=== PATIENT | female | born 1950 | race African-American/Black ===

== ENCOUNTER 2018-04-23 09:23 | Emergency (ER) | payer OTHER ==
[2018-04-23 10:43] LABS: ADD MAN DIFF? NO
[2018-04-23] MEDS: IPRATRPIUM/ALBUTEROL 0.5/2.5MG 3 ML NEBU. NEB (10:44)
[2018-04-23 10:54] LABS: ANION GAP 7 (6-14); BLOOD UREA NITROGEN 9 mg/dL (7-20); BUN/CREATININE RATIO 11 (6-20); CALCIUM 9.3 mg/dL (8.5-10.1); CARBON DIOXIDE 28 mmol/L (21-32); CHLORIDE 105 mmol/L (98-107); CREATININE 0.8 mg/dL (0.6-1.0); GFR 86.8; GLUCOSE 89 mg/dL (70-99); POTASSIUM 3.6 mmol/L (3.5-5.1); SODIUM 140 mmol/L (136-145)
[2018-04-23 11:00] LABS: ALBUMIN 3.7 g/dL (3.4-5.0); ALBUMIN/GLOBULIN RATIO 0.9 (1.0-1.7); ALK PHOS 54 U/L (46-116); ALT (SGPT) 18 U/L (14-59); AST (SGOT) 20 U/L (15-37); TOTAL BILIRUBIN 0.2 mg/dL (0.2-1.0); TOTAL PROTEIN 7.7 g/dL (6.4-8.2)
[2018-04-23 11:11] LABS: BASO % 0 % (0-3); EOS % 0 % (0-3); HEMATOCRIT 38.2 % (36.0-47.0); HEMOGLOBIN 12.8 g/dL (12.0-15.5); LYMPH # 1.2 x10^3/uL (1.0-4.8); LYMPH % 19 % (24-48); MEAN CORPUSCULAR HEMOGLOBIN 32 pg (25-35); MEAN CORPUSCULAR HGB CONC 34 g/dL (31-37); MEAN CORPUSCULAR VOLUME 96 fL (79-100); MONO # 0.4 x10^3/uL (0.0-1.1); MONO % 7 % (0-9); NEUT # 4.8 x10^3uL (1.8-7.7); NEUT % 74 % (31-73); PLATELET COUNT 339 x10^3/uL (140-400); RED BLOOD COUNT 3.96 x10^6/uL (3.50-5.40); RED CELL DISTRIBUTION WIDTH 13.1 % (11.5-14.5); WHITE BLOOD COUNT 6.5 x10^3/uL (4.0-11.0)
[2018-04-23] MEDS: cloNIDine HCL 0.1 MG TABLET PO (11:37)
[2018-04-23 11:53] LABS: BILIRUBIN,URINE NEGATIVE (NEG); CLARITY,URINE CLEAR; COLOR,URINE YELLOW; GLUCOSE,URINE NEGATIVE (NEG); NITRITE,URINE NEGATIVE (NEG); PH,URINE 7.5; PROTEIN,URINE NEGATIVE (NEG-TRACE)
[2018-04-23 12:12] LABS: BACTERIA,URINE 0 /HPF (0-FEW); RBC,URINE 0 /HPF (0-2); SQUAMOUS EPITHELIAL CELL,UR MANY /LPF; WBC,URINE 0 /HPF (0-4)
== END 2018-04-23 12:45 | disposition home or self-care (01) ==
LOC: ER 12:45
DX: R05 Cough (principal); J45.909 Unspecified asthma, uncomplicated; I10 Essential (primary) hypertension
CPT/HCPCS: 36415; 71046; 80053; 81001; 85025; 93005; 94640; 99285-25; J7620

== ENCOUNTER → 2018-06-16 | Outpatient (CLI) | payer OTHER ==
[2018-04-23 11:37] VITALS: BP 199/98
[~2018-06-16] MED LIST: ALBU2.5V5 NEB; BENZ100C PO
--- NOTE | 2018-06-16 09:30 | RAD ---
DATE: 06/16/2018 EXAM: DIGITAL SCREEN BILAT W/CAD HISTORY: Routine screening COMPARISON: 02/06/2016 This study was interpreted with the benefit of Computerized Aided Detection (CAD). Breast Density: HETERO The breast parenchyma is heterogenously dense, which could reduce sensitivity of mammography. Breast parenchyma level C. FINDINGS: No new or enlarging breast densities are seen. Benign type calcifications are present. No suspicious microcalcifications have developed. IMPRESSION: Stable mammograms without evidence of malignancy. BI-RADS CATEGORY: 2 BENIGN FINDING(S) RECOMMENDED FOLLOW-UP: 12M 12 MONTH FOLLOW-UP PQRS compliance statement: Patient information was entered into a reminder system with a target due date for the next mammogram. Mammography is a sensitive method for finding small breast cancers, but it does not detect them all and is not a substitute for careful clinical examination. A negative mammogram does not negate a clinically suspicious finding and should not result in delay in biopsying a clinically suspicious abnormality. "Our facility is accredited by the [employer] Mammography Program."
== END | disposition home or self-care (01) ==
LOC: MAMMO 08:47
PROVIDERS: ATTEND Family Medicine
DX: N64.89 Other specified disorders of breast (principal); Z12.31 Encounter for screening mammogram for malignant neoplasm of breast
CPT/HCPCS: 77067

== ENCOUNTER 2018-09-11 12:35 | Emergency (ER) | payer OTHER ==
[~2018-09-11] VITALS: Ht 162.6 cm; Wt 36.3 kg
[2018-09-11 12:51] VITALS: BP 162/92
[2018-09-11 13:04] LABS: BILIRUBIN,URINE NEGATIVE (NEG); CLARITY,URINE CLEAR; COLOR,URINE YELLOW; NITRITE,URINE NEGATIVE (NEG); PH,URINE 7.5; PROTEIN,URINE NEGATIVE (NEG-TRACE); UROBILINOGEN,URINE 0.2 mg/dL (0.2 mg/dL)
[2018-09-11 13:19] LABS: BACTERIA,URINE 0 /HPF (0-FEW); RBC,URINE 0 /HPF (0-2); SQUAMOUS EPITHELIAL CELL,UR MOD /LPF; WBC,URINE 0 /HPF (0-4)
[2018-09-11] MEDS ORDERED: OXYB5TAB7 PO (13:31)
--- NOTE | 2018-09-11 13:33 | PHYS DOC ---
Past Medical History Past Medical History: Asthma, Hypertension Past Surgical History: Other Additional Past Surgical Histo: CYST REMOVAL Alcohol Use: None Drug Use: None Adult General Chief Complaint Chief Complaint: URINARY FREQUENCY HPI HPI Patient is a 68 year old female with urinary frequency she is urinating several times a night she would like something to control that no dysuria no fever no abdominal pain no other symptoms at all. Allergies Allergies Allergies Coded Allergies Type Severity Reaction Last Updated Verified No Known Drug Allergies 04/23/18 No Physical Exam Physical Exam Constitutional: Well developed, well nourished, no acute distress, non-toxic appearance. [] HENT: Normocephalic, atraumatic, bilateral external ears normal, oropharynx moist, no oral exudates, nose normal. []Poor dentition Eyes: PERRLA, EOMI, conjunctiva normal, no discharge. [] Neck: Normal range of motion, no tenderness, supple, no stridor. [] Pulmonary: Normal respiratory effort no increased work of breathing no obvious chest wall trauma Abdomen: Bowel sounds normal, soft, no tenderness, no masses, no pulsatile masses. [] Skin: Warm, dry, no erythema, no rash. [] Back: No tenderness, no CVA tenderness. [] Extremities: No tenderness, no cyanosis, no clubbing, ROM intact, no edema. [] Neurologic: Alert and oriented X 3, normal motor function, normal sensory function, no focal deficits noted. [] Psychologic: Affect normal, judgement normal, mood normal. [] Current Patient Data Vital Signs Vital Signs Date Time Temp Pulse Resp B/P (MAP) Pulse Ox O2 Delivery O2 Flow Rate FiO2 09/11/18 12:51 97.6 95 18 162/92 (115) 97 Room Air 97.6 Lab Values Laboratory Tests Test 09/11/18 12:40 Urine Collection Type Unknown Urine Color Yellow Urine Clarity Clear Urine pH 7.5 Urine Specific [place] 1.010 Urine Protein Negative mg/dL (NEG-TRACE) Urine Glucose (UA) Negative mg/dL (NEG) Urine Ketones (Stick) Negative mg/dL (NEG) Urine Blood Negative (NEG) Urine Nitrite Negative (NEG) Urine Bilirubin Negative (NEG) Urine Urobilinogen Dipstick 0.2 mg/dL (0.2 mg/dL) Urine Leukocyte Esterase Negative (NEG) Urine RBC 0 /HPF (0-2) Urine WBC 0 /HPF (0-4) Urine Squamous Epithelial Cells Mod /LPF Urine Bacteria 0 /HPF (0-FEW) EKG EKG [] Radiology/Procedures Radiology/Procedures [] Course & Med Decision Making Course & Med Decision Making Pertinent Labs and Imaging studies reviewed. (See chart for details) []URINE NEGATIVE likely overactive bladder oxybutynin was given recommend follow -up with blood pressure control and 1 month Dragon Disclaimer Dragon Disclaimer This electronic medical record was generated, in whole or in part, using a voice recognition dictation system. Departure Departure Impression: Primary Impression: Elevated blood pressure reading Additional Impression: Urinary frequency Disposition: HOME, SELF-CARE Condition: STABLE Patient Instructions: Overactive Bladder, Adult Additional Instructions: Get her blood pressure checked in 1 month Scripts Oxybutynin Chloride (OXYBUTYNIN CHLORIDE) 5 Mg Tablet 1 TAB PO BID, #60 TAB 0 Refills Prov: SAMMI WASHINGTON MD 09/11/18 Problem Qualifiers SAMMI WASHINGTON MD Sep 11, 2018 13:33
== END 2018-09-11 13:37 | disposition home or self-care (01) ==
LOC: ER 12:35
DX: R35.0 Frequency of micturition (principal); I10 Essential (primary) hypertension; J45.909 Unspecified asthma, uncomplicated
CPT/HCPCS: 81001; 99283

== ENCOUNTER 2019-02-01 00:14 | Inpatient (IN) | payer OTHER ==
[~2019-02-01] VITALS: Ht 157.5 cm; Wt 43.7 kg
[~2019-02-01 00:14] MED LIST changes: +OXYB5TAB7 PO
[2019-02-01] MEDS ORDERED: ALBUTEROL SULFATE 2.5 MG/3 ML NEBU. ONE (00:30)
[2019-02-01] MEDS ORDERED: ALBUTEROL SULFATE 2.5 MG/3 ML NEBU. NEB ONE (00:30)
[2019-02-01] MEDS ORDERED: IPRATRPIUM/ALBUTEROL 0.5/2.5MG 3 ML NEBU. ONE (00:30)
[2019-02-01 00:43] LABS: BASE EXCESS COOX 2 mmol/L (-3-3); HCO3 COOX 29 mmol/L (21-28); METHEMOGLOBIN 0.3 % (0.0-1.9); OXYHEMOGLOBIN 98.4 %; PCO2 COOX 57 mmHg (35-46); PO2 COOX 255 mmHg (65-108); SAT O2 COOX 99 % (92-99)
[2019-02-01] MEDS ORDERED: ALBUTEROL SULFATE 2.5 MG/3 ML NEBU. CONT NEB ONE (00:45)
[2019-02-01] MEDS ORDERED: IV NORMAL SALINE 1000ML BAG 1,000 ML IV ONE (00:45)
[2019-02-01] MEDS ORDERED: DEXAMETHASONE SOD PHOS 4 MG/ML VIAL IV ONE (00:45)
[2019-02-01 00:59] LABS: BASO % 0 % (0-3); EOS # 0.2 x10^3/uL (0.0-0.7); EOS % 3 % (0-3); HEMATOCRIT 40.8 % (36.0-47.0); HEMOGLOBIN 13.6 g/dL (12.0-15.5); LYMPH # 2.5 x10^3/uL (1.0-4.8); LYMPH % 29 % (24-48); MEAN CORPUSCULAR HEMOGLOBIN 32 pg (25-35); MEAN CORPUSCULAR HGB CONC 33 g/dL (31-37); MEAN CORPUSCULAR VOLUME 96 fL (79-100); MONO # 0.5 x10^3/uL (0.0-1.1); MONO % 6 % (0-9); NEUT # 5.5 x10^3uL (1.8-7.7); NEUT % 63 % (31-73); PLATELET COUNT 456 x10^3/uL (140-400); RED BLOOD COUNT 4.26 x10^6/uL (3.50-5.40); RED CELL DISTRIBUTION WIDTH 13.8 % (11.5-14.5); WHITE BLOOD COUNT 8.8 x10^3/uL (4.0-11.0)
[2019-02-01 01:15] LABS: CALCIUM 9.7 mg/dL (8.5-10.1); CREATININE 0.9 mg/dL (0.6-1.0); GFR 75.6
[2019-02-01 01:21] LABS: ALBUMIN 4.3 g/dL (3.4-5.0); MAGNESIUM 2.1 mg/dL (1.8-2.4); TOTAL BILIRUBIN 0.1 mg/dL (0.2-1.0); TOTAL PROTEIN 8.4 g/dL (6.4-8.2)
[2019-02-01 02:16] LABS: INFLUENZA A PATIENT NEGATIVE (NEGATIVE); INFLUENZA B PATIENT NEGATIVE (NEGATIVE)
[2019-02-01] MEDS ORDERED: IPRATRPIUM/ALBUTEROL 0.5/2.5MG 3 ML NEBU. NEB ONE (02:45)
[2019-02-01] MEDS ORDERED: AZITHRMYCN 500MG IVPB FOR OMNI 250 ML IV ONE (03:00)
--- NOTE | 2019-02-01 03:06 | PHYS DOC ---
Past Medical History Past Medical History: Asthma, Hypertension Past Surgical History: Other Additional Past Surgical Histo: CYST REMOVAL Alcohol Use: None Drug Use: None Adult General Chief Complaint Chief Complaint: SHORTNESS OF BREATH HPI HPI Patient is a 68 year old female who presents with shortness of breath of 2 days duration that became acutely worsened tonight. She states that her asthma has been flaring up with the changes in weather and has since been finding more difficult to breath. She has been using her home nebulizer and inhaler with adequate treatment until today. This evening, she began experiencing chest tightness this evening and was concerned that her breathing was worsening. She has been coughing up phlegm over the past few days but has not felt feverish and denies other URI symptoms. At this time, denies chest pain or radiation of her stated tightness, diaphoresis, nausea, vomiting, calf swelling or hemoptysis. Review of Systems Review of Systems Constitutional: Denies fever or chills [] Eyes: Denies irritation or drainage [] HENT: Denies nasal congestion or sore throat [] Respiratory: Reports cough, shortness of breath and dyspnea [] Cardiovascular: Reports chest tightness. Denies palpitations. [] GI: Denies abdominal pain, nausea, vomiting, or diarrhea [] : Denies dysuria or hematuria [] Integument: Denies rash or skin lesions [] Neurologic: Denies headache, focal weakness or sensory changes [] Complete review of systems found to be within normal limits, except as documented in this note. Current Medications Current Medications Current Medications Medications (Trade) Dose Ordered Sig/Ganesh Start Time Stop Time Status Last Admin Dose Admin Albuterol Sulfate (Ventolin Neb Soln) 10 mg 1X ONCE 02/01/19 00:45 02/01/19 00:46 DC 02/01/19 00:38 10 MG Albuterol/ Ipratropium (Duoneb) 3 ml 1X ONCE 02/01/19 02:45 02/01/19 02:48 DC Dexamethasone Sodium Phosphate (Decadron) 10 mg 1X ONCE 02/01/19 00:45 02/01/19 00:46 DC 02/01/19 01:16 10 MG Sodium Chloride 1,000 ml @ 1,000 mls/hr 1X ONCE 02/01/19 00:45 02/01/19 01:44 DC 02/01/19 01:14 1,000 MLS/HR Allergies Allergies Allergies Coded Allergies Type Severity Reaction Last Updated Verified No Known Drug Allergies 04/23/18 No Physical Exam Physical Exam Constitutional: Thin appearing female in mild acute respiratory distress [] HENT: Normocephalic, atraumatic, oropharynx moist, no oral exudates, nose normal. [] Eyes: EOMI, conjunctiva normal, no discharge. [] Neck: Supple, nontender without lymphadenopathy. Scalenes used as accessory respiratory muscles [] Cardiovascular: Heart rate tachycardic with regular rhythm Lungs & Thorax: Diminished breath sounds with expiratory wheezes throughout. Subcostal retractions present [] Abdomen: Soft and nontender [] Skin: Warm, dry, no erythema, no rash. [] Extremities: Radial pulses +2, cap refill < 2seconds [] Neurologic: Alert and oriented, no focal deficits noted. [] Psychologic: Affect normal, judgement normal, mood normal. [] Current Patient Data Vital Signs Vital Signs Date Time Temp Pulse Resp B/P (MAP) Pulse Ox O2 Delivery O2 Flow Rate FiO2 02/01/19 02:09 116 172/83 (112) 97 02/01/19 00:38 Nasal Cannula 5.0 02/01/19 00:15 98.1 26 98.1 Lab Values Laboratory Tests Test 02/01/19 00:42 02/01/19 00:50 02/01/19 01:45 O2 Saturation 99 % (92-99) Arterial Blood pH 7.33 (7.35-7.45) L Arterial Blood pCO2 at Patient Temp 57 mmHg (35-46) H Arterial Blood pO2 at Patient Temp 255 mmHg (65-108) H Arterial Blood HCO3 29 mmol/L (21-28) H Arterial Blood Base Excess 2 mmol/L (-3-3) Oxyhemoglobin 98.4 % Methemoglobin 0.3 % (0.0-1.9) Carbon Monoxide, Quantitative 0.3 % (0.0-1.9) FiO2 40 White Blood Count 8.8 x10^3/uL (4.0-11.0) Red Blood Count 4.26 x10^6/uL (3.50-5.40) Hemoglobin 13.6 g/dL (12.0-15.5) Hematocrit 40.8 % (36.0-47.0) Mean Corpuscular Volume 96 fL (79-100) Mean Corpuscular Hemoglobin 32 pg (25-35) Mean Corpuscular Hemoglobin Concent 33 g/dL (31-37) Red Cell Distribution Width 13.8 % (11.5-14.5) Platelet Count 456 x10^3/uL (140-400) H Neutrophils (%) (Auto) 63 % (31-73) Lymphocytes (%) (Auto) 29 % (24-48) Monocytes (%) (Auto) 6 % (0-9) Eosinophils (%) (Auto) 3 % (0-3) Basophils (%) (Auto) 0 % (0-3) Neutrophils # (Auto) 5.5 x10^3uL (1.8-7.7) Lymphocytes # (Auto) 2.5 x10^3/uL (1.0-4.8) Monocytes # (Auto) 0.5 x10^3/uL (0.0-1.1) Eosinophils # (Auto) 0.2 x10^3/uL (0.0-0.7) Basophils # (Auto) 0.0 x10^3/uL (0.0-0.2) Sodium Level 145 mmol/L (136-145) Potassium Level 4.0 mmol/L (3.5-5.1) Chloride Level 104 mmol/L (98-107) Carbon Dioxide Level 31 mmol/L (21-32) Anion Gap 10 (6-14) Blood Urea Nitrogen 20 mg/dL (7-20) Creatinine 0.9 mg/dL (0.6-1.0) Estimated GFR (Cockcroft-Gault) 75.6 BUN/Creatinine Ratio 22 (6-20) H Glucose Level 151 mg/dL (70-99) H Lactic Acid Level 1.0 mmol/L (0.4-2.0) Calcium Level 9.7 mg/dL (8.5-10.1) Magnesium Level 2.1 mg/dL (1.8-2.4) Total Bilirubin 0.1 mg/dL (0.2-1.0) L Aspartate Amino Transferase (AST) 29 U/L (15-37) Alanine Aminotransferase (ALT) 36 U/L (14-59) Alkaline Phosphatase 83 U/L (46-116) Creatine Kinase 141 U/L (26-192) Creatine Kinase MB (Mass) 3.0 ng/mL (0.0-3.6) Creatine Kinase MB Relative Index 2.1 % (0-4) Troponin I Quantitative < 0.017 ng/mL (0.000-0.055) FE-Eyv-O-Type Natriuretic Peptide 41 pg/mL (0-124) Total Protein 8.4 g/dL (6.4-8.2) H Albumin 4.3 g/dL (3.4-5.0) Albumin/Globulin Ratio 1.0 (1.0-1.7) Influenza Type A Antigen Negative (NEGATIVE) Influenza Type B Antigen Negative (NEGATIVE) Laboratory Tests 02/01/19 00:50 Laboratory Tests 02/01/19 00:50 EKG EKG @0106: Sinus tachycardia with rate of 128. Normal axis. No Q waves present. No ST segment elevation or depression. No T wave inversion. [] Radiology/Procedures Radiology/Procedures Portable Chest 1-View @ 0034: Hyperinflated lungs with evidence of calcified hilar granulomatous disease consistent with prior film from 04/23/2018. Trachea midline. No pneumothorax present. No pleural effusion. No evidence of acute cardiopulmonary process.[] Course & Med Decision Making Course & Med Decision Making Pertinent Labs and Imaging studies reviewed. (See chart for details) Patient is a 68 year old female with history of asthma who presents to the ED with progressive worsening of her shortness of breath that began 2 days prior. On arrival, SpO2 was at 86% on room air. Patient received 1 hour continuous DuoNeb breathing treatment with moderate improvement in respiratory status. She maintained SpO2 above 94% with supplemental oxygen via NC but auscultation of lungs showed persistent expiratory wheezing. CBC, CMP, lactic acid, cardiac enzymes, BNP were unremarkable. ABG showed respiratory acidosis. Patient was given steroids and prophylactic antibiotics covering for CAP. Patient agreeable to admission for further treatment and monitoring of dyspnea. Will admit to Dr. Clarke. Patient requiring admission for further evaluation and treatment. Discussed with Dr. Clarke (PCP) who is in agreement with admit. Discussed findings and plan with patient, who acknowledges understanding and agreement. [] Dragon Disclaimer Dragon Disclaimer This electronic medical record was generated, in whole or in part, using a voice recognition dictation system. Departure Departure Impression: Primary Impression: Asthma exacerbation Additional Impression: Hypoxia Disposition: ADMITTED INPATIENT Admitting Physician: Shani Clarke Condition: STABLE Referrals: BRANDI OVALLE MD (PCP) Scripts Budesonide (BUDESONIDE) 0.5 Mg/2 Ml Ampul.neb 0.5 MG NEB RTBID for asthma for 30 Days, #60 EACH Prov: Ama CASAS MD 02/04/19 Prednisone (PREDNISONE ) 10 Mg Tablet 10 MG PO UD for asthma, #30 TAB 0 Refills Take 5 tablets by mouth daily for 2 days, then take 4 tablets by mouth daily for 2 days, then take 3 tablets by mouth daily for 2 days, then take 2 tablets by mouth daily for 2 days, then take 1 tablets by mouth daily for 2 days, then stop. Prov: Ama CASAS MD 02/04/19 Fluticasone Propionate (FLUTICASONE PROPIONATE NASAL SPRAY) 16 Gm [place].susp 2 SPRAY NS DAILY for allergies for 30 Days, #1 SPRAY Prov: Ama CASAS MD 02/04/19 Montelukast Sodium (MONTELUKAST SODIUM TABLET) 10 Mg Tablet 10 MG PO QHS for breathing for 30 Days, #30 TAB Prov: Ama CASAS MD 02/04/19 Hydrochlorothiazide (HYDROCHLOROTHIAZIDE TABLET ) 25 Mg Tablet 25 MG PO DAILY for bp for 30 Days, #30 TAB Prov: Ama CASAS MD 02/04/19 Losartan Potassium (COZAAR ) 50 Mg Tablet 50 MG PO DAILY for bp for 30 Days, #30 TAB Prov: Ama CASAS MD 02/04/19 Cetirizine Hcl (CETIRIZINE HCL) 10 Mg Tablet 10 MG PO DAILY for runny nose, allergies for 30 Days, #30 TAB Prov: Ama CASAS MD 02/04/19 Critical Care Time Critical care time was [30] minutes exclusive of procedures. Problem Qualifiers Primary Impression: Asthma exacerbation Asthma severity: moderate Asthma persistence: persistent Qualified Codes: J45.41 - Moderate persistent asthma with (acute) exacerbation CHANDRAKANT MERRITT DO February 01, 2019 03:06
--- NOTE | 2019-02-01 06:56 | EKG ---
[facility] [address] [place] [address] Test Date: 2019-02-01 Test Time: 01:06:00 Pat Name: YELENA NESS Department: Room: 536 1 Gender: F Motorboat Mechanic: : [id number] Requested By: CHANDRAKANT MERRITT Order Number: [id number] Reading MD: Jesús Denny MD Measurements Intervals [place] Rate: 128 P: 56 UT: 106 QRS: 25 QRSD: 76 T: 64 QT: 324 QTc: 476 Interpretive Statements SINUS TACHYCARDIA NON-SPECIFIC ST/T CHANGES Electronically Signed On 02-27-2019 9:27:03 CDT by Jesús Denny MD
[2019-02-01 07:00] VITALS: BP 146/78
[2019-02-01] MEDS: IPRATRPIUM/ALBUTEROL 0.5/2.5MG 3 ML NEBU. NEB SCH ×4 (07:28→20:01)
--- NOTE | 2019-02-01 08:06 | RAD ---
Portable chest, 02/01/2019: HISTORY: Dyspnea Comparison is made to a study from 04/23/2018. The patient is rotated to the right. The heart size is normal. There are granulomatous calcifications in the study. There is calcific plaquing of the aorta. The pulmonary vascularity is normal. No pulmonary infiltrate is seen. A calcified granuloma is present left base. There is no evidence of pleural fluid. IMPRESSION: No acute cardiopulmonary abnormality is detected. Electronically signed by: Brice Prince MD (02/01/2019 8:03 AM) [facility]
--- NOTE | 2019-02-01 08:13 | PDOC ---
PROGRESS NOTES Subjective Subjective Patient reports breathing is a little better than at admission. No chest pain. Objective Objective Vital Signs Date Time Temp Pulse Resp B/P (MAP) Pulse Ox O2 Delivery O2 Flow Rate FiO2 02/01/19 07:33 100 Nasal Cannula 2.0 02/01/19 04:00 118 167/101 (123) 02/01/19 00:15 98.1 26 98.1 Intake and Output 02/01/19 07:00 Intake Total 1000 ml Output Total 1 ml Balance 999 ml Intake Oral 0 ml IV Total 1000 ml Output Urine Total 1 ml Physical Exam Abdomen: Normal bowel sounds, Soft, No tenderness Heart: Regular rate Extremities: No edema General: Alert, Oriented X3, No acute distress Lungs: Other (BS decreased throughout with fair air movement and mild expiratory wheezes) Plan Plan of Care 1. Acute hypoxic respiratory failure with AE asthma - stable overnight, start Solumedrol and Pulmicort nebs, continue O2 if needed. CXR without infiltrate, no need for abx at this time. 2. AR - may have contributed to asthma exacerbation, patient has not been taking medication for this. Start Zyrtec, Flonase and Singulair. 3. HTN - patient not sure what medication she takes for this and none on her chart from our office. Start HCTZ and add meds as needed. Comment Review of Relevant I have reviewed the following items edyta (where applicable) has been applied. Labs Laboratory Tests Test 02/01/19 00:42 02/01/19 00:50 02/01/19 01:45 O2 Saturation 99 % (92-99) Arterial Blood pH 7.33 (7.35-7.45) Arterial Blood pCO2 at Patient Temp 57 mmHg (35-46) Arterial Blood pO2 at Patient Temp 255 mmHg (65-108) Arterial Blood HCO3 29 mmol/L (21-28) Arterial Blood Base Excess 2 mmol/L (-3-3) Oxyhemoglobin 98.4 % Methemoglobin 0.3 % (0.0-1.9) Carbon Monoxide, Quantitative 0.3 % (0.0-1.9) FiO2 40 White Blood Count 8.8 x10^3/uL (4.0-11.0) Red Blood Count 4.26 x10^6/uL (3.50-5.40) Hemoglobin 13.6 g/dL (12.0-15.5) Hematocrit 40.8 % (36.0-47.0) Mean Corpuscular Volume 96 fL (79-100) Mean Corpuscular Hemoglobin 32 pg (25-35) Mean Corpuscular Hemoglobin Concent 33 g/dL (31-37) Red Cell Distribution Width 13.8 % (11.5-14.5) Platelet Count 456 x10^3/uL (140-400) Neutrophils (%) (Auto) 63 % (31-73) Lymphocytes (%) (Auto) 29 % (24-48) Monocytes (%) (Auto) 6 % (0-9) Eosinophils (%) (Auto) 3 % (0-3) Basophils (%) (Auto) 0 % (0-3) Neutrophils # (Auto) 5.5 x10^3uL (1.8-7.7) Lymphocytes # (Auto) 2.5 x10^3/uL (1.0-4.8) Monocytes # (Auto) 0.5 x10^3/uL (0.0-1.1) Eosinophils # (Auto) 0.2 x10^3/uL (0.0-0.7) Basophils # (Auto) 0.0 x10^3/uL (0.0-0.2) Sodium Level 145 mmol/L (136-145) Potassium Level 4.0 mmol/L (3.5-5.1) Chloride Level 104 mmol/L (98-107) Carbon Dioxide Level 31 mmol/L (21-32) Anion Gap 10 (6-14) Blood Urea Nitrogen 20 mg/dL (7-20) Creatinine 0.9 mg/dL (0.6-1.0) Estimated GFR (Cockcroft-Gault) 75.6 BUN/Creatinine Ratio 22 (6-20) Glucose Level 151 mg/dL (70-99) Lactic Acid Level 1.0 mmol/L (0.4-2.0) Calcium Level 9.7 mg/dL (8.5-10.1) Magnesium Level 2.1 mg/dL (1.8-2.4) Total Bilirubin 0.1 mg/dL (0.2-1.0) Aspartate Amino Transf (AST/SGOT) 29 U/L (15-37) Alanine Aminotransferase (ALT/SGPT) 36 U/L (14-59) Alkaline Phosphatase 83 U/L (46-116) Creatine Kinase 141 U/L (26-192) Creatine Kinase MB (Mass) 3.0 ng/mL (0.0-3.6) Creatine Kinase MB Relative Index 2.1 % (0-4) Troponin I Quantitative < 0.017 ng/mL (0.000-0.055) YA-Med-F-Type Natriuretic Peptide 41 pg/mL (0-124) Total Protein 8.4 g/dL (6.4-8.2) Albumin 4.3 g/dL (3.4-5.0) Albumin/Globulin Ratio 1.0 (1.0-1.7) Influenza Type A Antigen Negative (NEGATIVE) Influenza Type B Antigen Negative (NEGATIVE) Laboratory Tests Test 02/01/19 00:42 02/01/19 00:50 02/01/19 01:45 O2 Saturation 99 % (92-99) Arterial Blood pH 7.33 (7.35-7.45) Arterial Blood pCO2 at Patient Temp 57 mmHg (35-46) Arterial Blood pO2 at Patient Temp 255 mmHg (65-108) Arterial Blood HCO3 29 mmol/L (21-28) Arterial Blood Base Excess 2 mmol/L (-3-3) Oxyhemoglobin 98.4 % Methemoglobin 0.3 % (0.0-1.9) Carbon Monoxide, Quantitative 0.3 % (0.0-1.9) FiO2 40 White Blood Count 8.8 x10^3/uL (4.0-11.0) Red Blood Count 4.26 x10^6/uL (3.50-5.40) Hemoglobin 13.6 g/dL (12.0-15.5) Hematocrit 40.8 % (36.0-47.0) Mean Corpuscular Volume 96 fL (79-100) Mean Corpuscular Hemoglobin 32 pg (25-35) Mean Corpuscular Hemoglobin Concent 33 g/dL (31-37) Red Cell Distribution Width 13.8 % (11.5-14.5) Platelet Count 456 x10^3/uL (140-400) Neutrophils (%) (Auto) 63 % (31-73) Lymphocytes (%) (Auto) 29 % (24-48) Monocytes (%) (Auto) 6 % (0-9) Eosinophils (%) (Auto) 3 % (0-3) Basophils (%) (Auto) 0 % (0-3) Neutrophils # (Auto) 5.5 x10^3uL (1.8-7.7) Lymphocytes # (Auto) 2.5 x10^3/uL (1.0-4.8) Monocytes # (Auto) 0.5 x10^3/uL (0.0-1.1) Eosinophils # (Auto) 0.2 x10^3/uL (0.0-0.7) Basophils # (Auto) 0.0 x10^3/uL (0.0-0.2) Sodium Level 145 mmol/L (136-145) Potassium Level 4.0 mmol/L (3.5-5.1) Chloride Level 104 mmol/L (98-107) Carbon Dioxide Level 31 mmol/L (21-32) Anion Gap 10 (6-14) Blood Urea Nitrogen 20 mg/dL (7-20) Creatinine 0.9 mg/dL (0.6-1.0) Estimated GFR (Cockcroft-Gault) 75.6 BUN/Creatinine Ratio 22 (6-20) Glucose Level 151 mg/dL (70-99) Lactic Acid Level 1.0 mmol/L (0.4-2.0) Calcium Level 9.7 mg/dL (8.5-10.1) Magnesium Level 2.1 mg/dL (1.8-2.4) Total Bilirubin 0.1 mg/dL (0.2-1.0) Aspartate Amino Transf (AST/SGOT) 29 U/L (15-37) Alanine Aminotransferase (ALT/SGPT) 36 U/L (14-59) Alkaline Phosphatase 83 U/L (46-116) Creatine Kinase 141 U/L (26-192) Creatine Kinase MB (Mass) 3.0 ng/mL (0.0-3.6) Creatine Kinase MB Relative Index 2.1 % (0-4) Troponin I Quantitative < 0.017 ng/mL (0.000-0.055) JS-Ibq-E-Type Natriuretic Peptide 41 pg/mL (0-124) Total Protein 8.4 g/dL (6.4-8.2) Albumin 4.3 g/dL (3.4-5.0) Albumin/Globulin Ratio 1.0 (1.0-1.7) Influenza Type A Antigen Negative (NEGATIVE) Influenza Type B Antigen Negative (NEGATIVE) Medications Current Medications Albuterol Sulfate (Ventolin Neb Soln) 2.5 mg 1X ONCE NEB Last administered on 02/01/19at 00:24; Start 02/01/19 at 00:30; Stop 02/01/19 at 00:31; Status DC Albuterol Sulfate (Ventolin Neb Soln) 2.5 mg STK-MED ONCE .ROUTE ; Start 02/01/19 at 00:30; Stop 02/01/19 at 00:32; Status DC Albuterol/ Ipratropium (Duoneb) 3 ml STK-MED ONCE .ROUTE ; Start 02/01/19 at 00:30; Stop 02/01/19 at 00:32; Status DC Sodium Chloride 1,000 ml @ 1,000 mls/hr 1X ONCE IV Last administered on 02/01/19at 01:14; Start 02/01/19 at 00:45; Stop 02/01/19 at 01:44; Status DC Dexamethasone Sodium Phosphate (Decadron) 10 mg 1X ONCE IV Last administered on 02/01/19at 01:16; Start 02/01/19 at 00:45; Stop 02/01/19 at 00:46; Status DC Albuterol Sulfate (Ventolin Neb Soln) 10 mg 1X ONCE CONT NEB Last administered on 02/01/19at 00:38; Start 02/01/19 at 00:45; Stop 02/01/19 at 00:46; Status DC Albuterol/ Ipratropium (Duoneb) 3 ml 1X ONCE NEB ; Start 02/01/19 at 02:45; Stop 02/01/19 at 02:48; Status DC Azithromycin 250 ml @ 250 mls/hr 1X ONCE IV Last administered on 02/01/19at 03: 29; Start 02/01/19 at 03:00; Stop 02/01/19 at 03:59; Status DC Albuterol/ Ipratropium (Duoneb) 3 ml RTQID NEB Last administered on 02/01/19at 07:28; Start 02/01/19 at 08:00; Stop 02/02/19 at 07:59 Active Scripts Active Oxybutynin Chloride 5 Mg Tablet 1 Tab PO BID Albuterol Sulfate Neb Soln (Albuterol Sulfate) 2.5 Mg/3 Ml Vial.neb 1 Vial NEB PRN Q4HRS Tessalon Perle (Benzonatate) 100 Mg Capsule 1 Cap PO TID Vitals/I & O Vital Sign - Last 24 Hours 02/01/19 02/01/19 02/01/19 02/01/19 00:15 00:19 00:24 00:34 Temp 98.1 98.1 Pulse 150 124 122 Resp 26 B/P (MAP) 200/89 (126) 200/89 (126) 166/84 (111) Pulse Ox 86 92 100 94 O2 Delivery Room Air NonRebreather Mask O2 Flow Rate 15.0 02/01/19 02/01/19 02/01/19 02/01/19 00:38 01:09 01:47 02:09 Pulse 126 122 116 B/P (MAP) 180/87 (118) 169/84 (112) 172/83 (112) Pulse Ox 95 98 97 O2 Delivery Nasal Cannula O2 Flow Rate 5.0 02/01/19 02/01/19 02/01/19 04:00 05:10 07:33 Pulse 118 B/P (MAP) 167/101 (123) Pulse Ox 93 100 O2 Delivery Nasal Cannula Nasal Cannula O2 Flow Rate 2.0 2.0 Intake and Output 01/31/19 01/31/19 02/01/19 15:00 23:00 07:00 Intake Total 1000 ml Output Total 1 ml Balance 999 ml DANIEL VO MD February 01, 2019 08:13
[2019-02-01] MEDS: BUDESONIDE 0.5 MG/2 ML NEBU. NEB SCH ×2 (08:15→20:01)
--- NOTE | 2019-02-01 08:16 | NUR ---
SW following pt for anticipated dc needs. Chart reviewed. Pt lives at home with spouse and no SW needs noted at this time. Will continue to evaluate dc needs.
[2019-02-01] MEDS: CETIRIZINE HCL 10 MG TABLET. PO SCH (08:37)
[2019-02-01] MEDS: methylPREDNISolone SOD SUCC PF 125 MG/2 ML VIAL. IV SCH ×3 (08:37→22:17)
[2019-02-01] MEDS: hydroCHLOROthiazide 25 MG TABLET PO SCH (08:37)
[2019-02-01] MEDS: FLUTICASONE 50MCG/NASAL SPRAY 16GM BOTTLE. NS SCH (09:00)
--- NOTE | 2019-02-01 09:18 | HP ---
ADMIT DATE: 02/01/2019 CHIEF COMPLAINT: Shortness of breath. HISTORY OF PRESENT ILLNESS: The patient is a 68-year-old female with a history of asthma, who presented to the Emergency Room with the above complaint. She reported a several-day history of increasing shortness of breath. She had been using her home nebulizer and inhaler, but her symptoms gradually worsened. She then had the onset of some chest tightness and so came to the Emergency Department. Evaluation there showed her to be mildly hypoxic with an initial room air saturation of 86% and her chest exam showed wheezing throughout. She was given one dose of IV steroids and admitted for further care. PAST MEDICAL HISTORY: Asthma, allergic rhinitis, hypertension. PAST SURGICAL HISTORY: Ovarian cyst removal. ALLERGIES: The patient has no known drug allergies. HOME MEDICATIONS: Albuterol nebulized treatments or inhaler as needed. The patient had been prescribed Symbicort inhaler, but was not using it as she did not find that it helped her. She is on some medication for blood pressure from a physician that she used to see, but she does not know the name of the medication. FAMILY HISTORY: Noncontributory. SOCIAL HISTORY: The patient is . She is a homemaker. She has never smoked cigarettes and does not drink alcohol to excess. REVIEW OF SYSTEMS: The patient has not had fever or chills. She has not had chest pain or palpitations until the onset of the chest pressure that accompanied her shortness of breath on the day of admission. She has been experiencing some allergy symptoms with nasal congestion and rhinorrhea, but has not taken any medication for these. She denies abdominal pain, nausea or vomiting. She denies lower extremity edema. She denies dysuria. PHYSICAL EXAMINATION: GENERAL: The patient is alert and oriented x 3, sitting up comfortably in bed, in no acute distress. HEENT: The patient has a mildly disconjugate gaze. Sclerae are clear. Oropharynx; mucous membranes moist, poor dentition. NECK: Supple without lymphadenopathy. CHEST: Breath sounds are moderately decreased throughout with fair air flow and mild expiratory wheezes. CARDIOVASCULAR: Regular rhythm without murmur. ABDOMEN: Soft, nontender, normoactive bowel sounds are present. EXTREMITIES: Bilateral lower extremities are without edema. ASSESSMENT AND PLAN: 1. Acute hypoxic respiratory failure with acute exacerbation of asthma. The patient has been stable overnight. We will start Solu-Medrol and Pulmicort nebulized treatments. Continue oxygen as needed. Chest x-ray was without infiltrate, so there is no indication for antibiotics at this time. 2. Allergic rhinitis. This may be contributing to her asthma exacerbation. We will start her on Zyrtec, Flonase, and Singulair. 3. Hypertension. The patient is not sure what medication she takes for this and there is none on her chart from our office. We will start hydrochlorothiazide and adjust medication as indicated. DANIEL VO MD DR: SHAKEEL/reina JOB#: [id number] / [id number] SONG
[2019-02-01 11:00] VITALS: BP 159/89
[2019-02-01 15:00] VITALS: BP 154/80
[2019-02-01 19:00] VITALS: BP 168/82
[2019-02-01] MEDS: MONTELUKAST SODIUM 10 MG TABLET. PO SCH (20:21)
[2019-02-01 23:00] VITALS: BP 147/72
[2019-02-02 03:00] VITALS: BP 176/88
[2019-02-02 04:06] LABS: BILIRUBIN,URINE NEGATIVE (NEG); CLARITY,URINE CLEAR; COLOR,URINE YELLOW; NITRITE,URINE NEGATIVE (NEG); PROTEIN,URINE NEGATIVE (NEG-TRACE); UROBILINOGEN,URINE 0.2 mg/dL (0.2 mg/dL)
[2019-02-02 04:37] LABS: BACTERIA,URINE 0 /HPF (0-FEW); RBC,URINE 0 /HPF (0-2); SQUAMOUS EPITHELIAL CELL,UR OCC /LPF; WBC,URINE OCC /HPF (0-4)
[2019-02-02] MEDS: methylPREDNISolone SOD SUCC PF 125 MG/2 ML VIAL. IV SCH ×3 (05:48→21:45)
[2019-02-02 07:00] VITALS: BP 162/99
[2019-02-02] MEDS: IPRATRPIUM/ALBUTEROL 0.5/2.5MG 3 ML NEBU. NEB SCH ×4 (07:49→20:26)
[2019-02-02] MEDS: BUDESONIDE 0.5 MG/2 ML NEBU. NEB SCH ×2 (07:49→20:26)
--- NOTE | 2019-02-02 08:38 | PDOC ---
PROGRESS NOTES Subjective Subjective Patient reports her breathing is a little better, still notices HANNAH. Objective Objective Vital Signs Date Time Temp Pulse Resp B/P (MAP) Pulse Ox O2 Delivery O2 Flow Rate FiO2 02/02/19 07:50 98 Nasal Cannula 2.0 02/02/19 07:00 98.2 99 18 162/99 (120) 98.2 Intake and Output 02/02/19 07:00 Intake Total 700 ml Balance 700 ml Intake Oral 700 ml # Voids 7 Physical Exam Abdomen: Normal bowel sounds, Soft, No tenderness Heart: Regular rate Extremities: No edema General: Alert, Oriented X3, No acute distress Lungs: Other (BS moderately decreased throughout with fair air flow and mild expiratory wheezes) Plan Plan of Care 1. Acute hypoxic respiratory failure with AE asthma - chest exam mildly improved from yesterday. Continue present tx including Solumedrol, O2 and nebs. 2. HTN - BP still mildly elevated on HCTZ, add low dose Losartan. 3. AR - stable, continue all meds daily. Comment Review of Relevant I have reviewed the following items edyta (where applicable) has been applied. Labs Laboratory Tests Test 02/01/19 00:42 02/01/19 00:50 02/01/19 01:45 02/01/19 09:40 O2 Saturation 99 % (92-99) Arterial Blood pH 7.33 (7.35-7.45) Arterial Blood pCO2 at Patient Temp 57 mmHg (35-46) Arterial Blood pO2 at Patient Temp 255 mmHg (65-108) Arterial Blood HCO3 29 mmol/L (21-28) Arterial Blood Base Excess 2 mmol/L (-3-3) Oxyhemoglobin 98.4 % Methemoglobin 0.3 % (0.0-1.9) Carbon Monoxide, Quantitative 0.3 % (0.0-1.9) FiO2 40 White Blood Count 8.8 x10^3/uL (4.0-11.0) Red Blood Count 4.26 x10^6/uL (3.50-5.40) Hemoglobin 13.6 g/dL (12.0-15.5) Hematocrit 40.8 % (36.0-47.0) Mean Corpuscular Volume 96 fL (79-100) Mean Corpuscular Hemoglobin 32 pg (25-35) Mean Corpuscular Hemoglobin Concent 33 g/dL (31-37) Red Cell Distribution Width 13.8 % (11.5-14.5) Platelet Count 456 x10^3/uL (140-400) Neutrophils (%) (Auto) 63 % (31-73) Lymphocytes (%) (Auto) 29 % (24-48) Monocytes (%) (Auto) 6 % (0-9) Eosinophils (%) (Auto) 3 % (0-3) Basophils (%) (Auto) 0 % (0-3) Neutrophils # (Auto) 5.5 x10^3uL (1.8-7.7) Lymphocytes # (Auto) 2.5 x10^3/uL (1.0-4.8) Monocytes # (Auto) 0.5 x10^3/uL (0.0-1.1) Eosinophils # (Auto) 0.2 x10^3/uL (0.0-0.7) Basophils # (Auto) 0.0 x10^3/uL (0.0-0.2) Sodium Level 145 mmol/L (136-145) Potassium Level 4.0 mmol/L (3.5-5.1) Chloride Level 104 mmol/L (98-107) Carbon Dioxide Level 31 mmol/L (21-32) Anion Gap 10 (6-14) Blood Urea Nitrogen 20 mg/dL (7-20) Creatinine 0.9 mg/dL (0.6-1.0) Estimated GFR (Cockcroft-Gault) 75.6 BUN/Creatinine Ratio 22 (6-20) Glucose Level 151 mg/dL (70-99) Lactic Acid Level 1.0 mmol/L (0.4-2.0) Calcium Level 9.7 mg/dL (8.5-10.1) Magnesium Level 2.1 mg/dL (1.8-2.4) Total Bilirubin 0.1 mg/dL (0.2-1.0) Aspartate Amino Transf (AST/SGOT) 29 U/L (15-37) Alanine Aminotransferase (ALT/SGPT) 36 U/L (14-59) Alkaline Phosphatase 83 U/L (46-116) Creatine Kinase 141 U/L (26-192) Creatine Kinase MB (Mass) 3.0 ng/mL (0.0-3.6) Creatine Kinase MB Relative Index 2.1 % (0-4) Troponin I Quantitative < 0.017 ng/mL (0.000-0.055) < 0.017 ng/mL (0.000-0.055) IR-Ocf-B-Type Natriuretic Peptide 41 pg/mL (0-124) Total Protein 8.4 g/dL (6.4-8.2) Albumin 4.3 g/dL (3.4-5.0) Albumin/Globulin Ratio 1.0 (1.0-1.7) Influenza Type A Antigen Negative (NEGATIVE) Influenza Type B Antigen Negative (NEGATIVE) Test 02/02/19 03:50 Urine Collection Type Unknown Urine Color Yellow Urine Clarity Clear Urine pH 6.0 Urine Specific [place] 1.025 Urine Protein Negative mg/dL (NEG-TRACE) Urine Glucose (UA) >=1000 mg/dL (NEG) Urine Ketones (Stick) Negative mg/dL (NEG) Urine Blood Negative (NEG) Urine Nitrite Negative (NEG) Urine Bilirubin Negative (NEG) Urine Urobilinogen Dipstick 0.2 mg/dL (0.2 mg/dL) Urine Leukocyte Esterase Negative (NEG) Urine RBC 0 /HPF (0-2) Urine WBC Occ /HPF (0-4) Urine Squamous Epithelial Cells Occ /LPF Urine Bacteria 0 /HPF (0-FEW) Laboratory Tests Test 02/01/19 09:40 02/02/19 03:50 Troponin I Quantitative < 0.017 ng/mL (0.000-0.055) Urine Collection Type Unknown Urine Color Yellow Urine Clarity Clear Urine pH 6.0 Urine Specific [place] 1.025 Urine Protein Negative mg/dL (NEG-TRACE) Urine Glucose (UA) >=1000 mg/dL (NEG) Urine Ketones (Stick) Negative mg/dL (NEG) Urine Blood Negative (NEG) Urine Nitrite Negative (NEG) Urine Bilirubin Negative (NEG) Urine Urobilinogen Dipstick 0.2 mg/dL (0.2 mg/dL) Urine Leukocyte Esterase Negative (NEG) Urine RBC 0 /HPF (0-2) Urine WBC Occ /HPF (0-4) Urine Squamous Epithelial Cells Occ /LPF Urine Bacteria 0 /HPF (0-FEW) Medications Current Medications Albuterol Sulfate (Ventolin Neb Soln) 2.5 mg 1X ONCE NEB Last administered on 02/01/19at 00:24; Start 02/01/19 at 00:30; Stop 02/01/19 at 00:31; Status DC Albuterol Sulfate (Ventolin Neb Soln) 2.5 mg STK-MED ONCE .ROUTE ; Start 02/01/19 at 00:30; Stop 02/01/19 at 00:32; Status DC Albuterol/ Ipratropium (Duoneb) 3 ml STK-MED ONCE .ROUTE ; Start 02/01/19 at 00:30; Stop 02/01/19 at 00:32; Status DC Sodium Chloride 1,000 ml @ 1,000 mls/hr 1X ONCE IV Last administered on 02/01/19at 01:14; Start 02/01/19 at 00:45; Stop 02/01/19 at 01:44; Status DC Dexamethasone Sodium Phosphate (Decadron) 10 mg 1X ONCE IV Last administered on 02/01/19at 01:16; Start 02/01/19 at 00:45; Stop 02/01/19 at 00:46; Status DC Albuterol Sulfate (Ventolin Neb Soln) 10 mg 1X ONCE CONT NEB Last administered on 02/01/19at 00:38; Start 02/01/19 at 00:45; Stop 02/01/19 at 00:46; Status DC Albuterol/ Ipratropium (Duoneb) 3 ml 1X ONCE NEB ; Start 02/01/19 at 02:45; Stop 02/01/19 at 02:48; Status DC Azithromycin 250 ml @ 250 mls/hr 1X ONCE IV Last administered on 02/01/19at 03:29; Start 02/01/19 at 03:00; Stop 02/01/19 at 03:59; Status DC Albuterol/ Ipratropium (Duoneb) 3 ml RTQID NEB Last administered on 02/02/19at 07:49; Start 02/01/19 at 08:00; Stop 02/02/19 at 07:59; Status DC Methylprednisolone Sodium Succinate (SOLU-Medrol 125MG VIAL) 60 mg Q8HRS IV Last administered on 02/02/19at 05:48; Start 02/01/19 at 08:15 Budesonide (Pulmicort) 0.5 mg RTBID NEB Last administered on 02/02/19at 07:49; Start 02/01/19 at 08:15 Cetirizine HCl (ZyrTEC) 10 mg DAILY PO Last administered on 02/01/19 08:37; Start 02/01/19 at 09:00 Montelukast Sodium (Singulair) 10 mg QHS PO Last administered on 02/01/19 20:21; Start 02/01/19 at 21:00 Hydrochlorothiazide (Hydrodiuril) 25 mg DAILY PO Last administered on 02/01/19 08:37; Start 02/01/19 at 09:00 Fluticasone Propionate (Flonase) 2 spray DAILY NS Last administered on 02/01/19 09:00; Start 02/01/19 at 09:00 Active Scripts Active Oxybutynin Chloride 5 Mg Tablet 1 Tab PO BID Albuterol Sulfate Neb Soln (Albuterol Sulfate) 2.5 Mg/3 Ml Vial.neb 1 Vial NEB PRN Q4HRS Tessalon Perle (Benzonatate) 100 Mg Capsule 1 Cap PO TID Vitals/I & O Vital Sign - Last 24 Hours 02/01/19 02/01/19 02/01/19 02/01/19 11:00 11:13 15:00 15:22 Temp 98.3 98.3 98.3 98.3 Pulse 118 106 Resp 18 18 B/P (MAP) 159/89 (112) 154/80 (104) Pulse Ox 100 100 99 100 O2 Delivery Room Air Nasal Cannula Nasal Cannula Nasal Cannula O2 Flow Rate 2.0 2.0 2.0 02/01/19 02/01/19 02/01/19 02/01/19 19:00 20:00 20:01 20:02 Temp 98.3 98.3 Pulse 118 Resp 18 B/P (MAP) 168/82 (110) Pulse Ox 98 100 100 O2 Delivery Nasal Cannula Nasal Cannula Nasal Cannula Nasal Cannula O2 Flow Rate 2.0 2.0 2.0 2.0 02/01/19 02/02/19 02/02/19 02/02/19 23:00 03:00 07:00 07:50 Temp 97.7 97.4 98.2 97.7 97.4 98.2 Pulse 110 107 99 Resp 16 18 18 B/P (MAP) 147/72 (97) 176/88 (117) 162/99 (120) Pulse Ox 100 99 94 98 O2 Delivery Nasal Cannula Nasal Cannula Nasal Cannula Nasal Cannula O2 Flow Rate 2.0 2.0 2.0 2.0 Intake and Output 02/01/19 02/01/19 02/02/19 15:00 23:00 07:00 Intake Total 460 ml 240 ml Balance 460 ml 240 ml DANIEL VO MD February 02, 2019 08:38
[2019-02-02] MEDS: OXYBUTYNIN CHLORIDE 5 MG TABLET PO SCH ×2 (08:58→20:31)
[2019-02-02] MEDS: FLUTICASONE 50MCG/NASAL SPRAY 16GM BOTTLE. NS SCH (08:58)
[2019-02-02] MEDS: CETIRIZINE HCL 10 MG TABLET. PO SCH (08:59)
[2019-02-02] MEDS: hydroCHLOROthiazide 25 MG TABLET PO SCH (08:59)
[2019-02-02] MEDS ORDERED: LOSARTAN POTASSIUM 25 MG TABLET. PO SCH (09:00)
[2019-02-02 11:00] VITALS: BP 158/85
[2019-02-02 15:00] VITALS: BP 149/80
[2019-02-02 19:00] VITALS: BP 155/90
[2019-02-02] MEDS: MONTELUKAST SODIUM 10 MG TABLET. PO SCH (20:31)
[2019-02-02 23:00] VITALS: BP 148/88
[2019-02-03 03:00] VITALS: BP 135/81
[2019-02-03] MEDS: methylPREDNISolone SOD SUCC PF 125 MG/2 ML VIAL. IV SCH ×3 (06:04→21:01)
[2019-02-03 07:00] VITALS: BP 155/94
[2019-02-03] MEDS: IPRATRPIUM/ALBUTEROL 0.5/2.5MG 3 ML NEBU. NEB SCH ×4 (07:46→21:07)
[2019-02-03] MEDS: BUDESONIDE 0.5 MG/2 ML NEBU. NEB SCH ×2 (07:46→21:08)
--- NOTE | 2019-02-03 09:00 | PDOC ---
PROGRESS NOTES Subjective Subjective Patient reports she still gets short of breath with ambulation and nursing reports her sats dropped off of O2. Objective Objective Vital Signs Date Time Temp Pulse Resp B/P (MAP) Pulse Ox O2 Delivery O2 Flow Rate FiO2 02/03/19 07:49 100 Nasal Cannula 2.0 02/03/19 07:00 98.0 88 16 155/94 (114) 98.0 Intake and Output 02/03/19 06:59 Intake Total 350 ml Output Total 3 ml Balance 347 ml Intake Oral 350 ml Output Urine Total 3 ml Physical Exam Abdomen: Normal bowel sounds, Soft, No tenderness Heart: Regular rate Extremities: No edema General: Alert, Oriented X3, No acute distress Lungs: Other (Decreased air flow throughout, mild expiratory wheezes) Plan Plan of Care 1. Acute hypoxic respiratory failure with AE asthma - slowly improving but still hypoxic with ambulation. Continue O2, Solumedrol and nebs. 2. HTN - BP still mildly elevated, increase Losartan to 50mg and continue HCTZ. 3. AR - stable, continue medication. Comment Review of Relevant I have reviewed the following items edyta (where applicable) has been applied. Labs Laboratory Tests Test 02/01/19 09:40 02/02/19 03:50 Troponin I Quantitative < 0.017 ng/mL (0.000-0.055) Urine Collection Type Unknown Urine Color Yellow Urine Clarity Clear Urine pH 6.0 Urine Specific [place] 1.025 Urine Protein Negative mg/dL (NEG-TRACE) Urine Glucose (UA) >=1000 mg/dL (NEG) Urine Ketones (Stick) Negative mg/dL (NEG) Urine Blood Negative (NEG) Urine Nitrite Negative (NEG) Urine Bilirubin Negative (NEG) Urine Urobilinogen Dipstick 0.2 mg/dL (0.2 mg/dL) Urine Leukocyte Esterase Negative (NEG) Urine RBC 0 /HPF (0-2) Urine WBC Occ /HPF (0-4) Urine Squamous Epithelial Cells Occ /LPF Urine Bacteria 0 /HPF (0-FEW) Medications Current Medications Albuterol Sulfate (Ventolin Neb Soln) 2.5 mg 1X ONCE NEB Last administered on 02/01/19at 00:24; Start 02/01/19 at 00:30; Stop 02/01/19 at 00:31; Status DC Albuterol Sulfate (Ventolin Neb Soln) 2.5 mg STK-MED ONCE .ROUTE ; Start 02/01/19 at 00:30; Stop 02/01/19 at 00:32; Status DC Albuterol/ Ipratropium (Duoneb) 3 ml STK-MED ONCE .ROUTE ; Start 02/01/19 at 00:30; Stop 02/01/19 at 00:32; Status DC Sodium Chloride 1,000 ml @ 1,000 mls/hr 1X ONCE IV Last administered on 02/01/19at 01:14; Start 02/01/19 at 00:45; Stop 02/01/19 at 01:44; Status DC Dexamethasone Sodium Phosphate (Decadron) 10 mg 1X ONCE IV Last administered on 02/01/19at 01:16; Start 02/01/19 at 00:45; Stop 02/01/19 at 00:46; Status DC Albuterol Sulfate (Ventolin Neb Soln) 10 mg 1X ONCE CONT NEB Last administered on 02/01/19at 00:38; Start 02/01/19 at 00:45; Stop 02/01/19 at 00:46; Status DC Albuterol/ Ipratropium (Duoneb) 3 ml 1X ONCE NEB ; Start 02/01/19 at 02:45; Stop 02/01/19 at 02:48; Status DC Azithromycin 250 ml @ 250 mls/hr 1X ONCE IV Last administered on 02/01/19at 03:29; Start 02/01/19 at 03:00; Stop 02/01/19 at 03:59; Status DC Albuterol/ Ipratropium (Duoneb) 3 ml RTQID NEB Last administered on 02/02/19at 07:49; Start 02/01/19 at 08:00; Stop 02/02/19 at 07:59; Status DC Methylprednisolone Sodium Succinate (SOLU-Medrol 125MG VIAL) 60 mg Q8HRS IV Last administered on 02/03/19at 06:06; Start 02/01/19 at 08:15 Budesonide (Pulmicort) 0.5 mg RTBID NEB Last administered on 02/03/19at 07:46; Start 02/01/19 at 08:15 Cetirizine HCl (ZyrTEC) 10 mg DAILY PO Last administered on 02/02/19at 08:59; Start 02/01/19 at 09:00 Montelukast Sodium (Singulair) 10 mg QHS PO Last administered on 02/02/19 20:31; Start 02/01/19 at 21:00 Hydrochlorothiazide (Hydrodiuril) 25 mg DAILY PO Last administered on 02/02/19 08:59; Start 02/01/19 at 09:00 Fluticasone Propionate (Flonase) 2 spray DAILY NS Last administered on 02/02/19 08:58; Start 02/01/19 at 09:00 Losartan Potassium (Cozaar) 25 mg DAILY PO Last administered on 02/02/19 08:58; Start 02/02/19 at 09:00 Oxybutynin Chloride (Ditropan) 5 mg BID PO Last administered on 02/02/19 20:31; Start 02/02/19 at 09:00 Albuterol/ Ipratropium (Duoneb) 3 ml RTQID NEB Last administered on 02/03/19at 07:46; Start 02/02/19 at 12:00 Active Scripts Active Oxybutynin Chloride 5 Mg Tablet 1 Tab PO BID Albuterol Sulfate Neb Soln (Albuterol Sulfate) 2.5 Mg/3 Ml Vial.neb 1 Vial NEB PRN Q4HRS Tessalon Perle (Benzonatate) 100 Mg Capsule 1 Cap PO TID Vitals/I & O Vital Sign - Last 24 Hours 02/02/19 02/02/19 02/02/19 02/02/19 11:00 11:52 15:00 15:34 Temp 98.4 98.2 98.4 98.2 Pulse 107 110 Resp 18 B/P (MAP) 158/85 (109) 149/80 (103) Pulse Ox 93 98 94 92 O2 Delivery Room Air Nasal Cannula Nasal Cannula Room Air O2 Flow Rate 2.0 2.0 2.0 02/02/19 02/02/19 02/02/19 02/02/19 19:00 20:00 20:27 23:00 Temp 97.6 97.9 97.6 97.9 Pulse 107 101 Resp 18 18 B/P (MAP) 155/90 (111) 148/88 (108) Pulse Ox 100 92 100 O2 Delivery Nasal Cannula Nasal Cannula Room Air Nasal Cannula O2 Flow Rate 2.0 2.0 2.0 02/03/19 02/03/19 02/03/19 02/03/19 03:00 07:00 07:46 07:49 Temp 97.8 98.0 97.8 98.0 Pulse 99 88 Resp 18 16 B/P (MAP) 135/81 (99) 155/94 (114) Pulse Ox 98 100 100 100 O2 Delivery Nasal Cannula Nasal Cannula Nasal Cannula Nasal Cannula O2 Flow Rate 2.0 2.0 2.0 2.0 Intake and Output 02/02/19 02/02/19 02/03/19 14:59 22:59 06:59 Intake Total 0 ml 350 ml Output Total 1 ml 2 ml Balance -1 ml 0 ml 348 ml DANIEL VO MD February 03, 2019 09:00
[2019-02-03] MEDS: OXYBUTYNIN CHLORIDE 5 MG TABLET PO SCH ×2 (09:22→21:00)
[2019-02-03] MEDS: hydroCHLOROthiazide 25 MG TABLET PO SCH (09:22)
[2019-02-03] MEDS: LOSARTAN POTASSIUM 50 MG TABLET. PO SCH (09:22)
[2019-02-03] MEDS: FLUTICASONE 50MCG/NASAL SPRAY 16GM BOTTLE. NS SCH (09:22)
[2019-02-03] MEDS: CETIRIZINE HCL 10 MG TABLET. PO SCH (09:22)
[2019-02-03 11:00] VITALS: BP 153/83
[2019-02-03 14:49] VITALS: BP 147/79
[2019-02-03 19:00] VITALS: BP 136/77
[2019-02-03] MEDS: MONTELUKAST SODIUM 10 MG TABLET. PO SCH (21:00)
[2019-02-03 22:50] VITALS: BP 152/85
[2019-02-04 03:00] VITALS: BP 134/71
[2019-02-04] MEDS: methylPREDNISolone SOD SUCC PF 125 MG/2 ML VIAL. IV SCH ×2 (06:03→13:51)
[2019-02-04 07:00] VITALS: BP 167/94
[2019-02-04] MEDS: hydroCHLOROthiazide 25 MG TABLET PO SCH (08:00)
[2019-02-04] MEDS: LOSARTAN POTASSIUM 50 MG TABLET. PO SCH (08:00)
[2019-02-04] MEDS: FLUTICASONE 50MCG/NASAL SPRAY 16GM BOTTLE. NS SCH (08:00)
[2019-02-04] MEDS: OXYBUTYNIN CHLORIDE 5 MG TABLET PO SCH (08:00)
[2019-02-04] MEDS: CETIRIZINE HCL 10 MG TABLET. PO SCH (08:00)
[2019-02-04] MEDS: IPRATRPIUM/ALBUTEROL 0.5/2.5MG 3 ML NEBU. NEB SCH ×3 (08:03→15:28)
[2019-02-04] MEDS: BUDESONIDE 0.5 MG/2 ML NEBU. NEB SCH (08:03)
[2019-02-04 11:00] VITALS: BP 168/86
[2019-02-04 15:00] VITALS: BP 164/93
[2019-02-04] MEDS ORDERED: LOSA-73 PO (15:50)
[2019-02-04] MEDS ORDERED: PRED-220 PO (15:50)
[2019-02-04] MEDS ORDERED: FLUT16SP NS (15:50)
[2019-02-04] MEDS ORDERED: HYDR-2145 PO (15:50)
[2019-02-04] MEDS ORDERED: CETI10TA16 PO (15:50)
[2019-02-04] MEDS ORDERED: MONT10TA9 PO (15:50)
[2019-02-04] MEDS ORDERED: BUDE0.5A NEB (15:52)
--- NOTE | 2019-02-04 15:58 | PDOC3 ---
Discharge Summary [facility] Date of Admission: February 01, 2019 Discharge Date: February 04, 2019 Admitting Diagnosis acute asthma exac Final Diagnosis acute respiratory failure from asthma exacerbation CONSULTS none Procedures none Brief Hospital Course Ms. Gray is a 68 old who presented with: 1. Acute hypoxic respiratory failure with AE asthma - slowly improved with NC O2, IV Solumedrol and nebs. She passed a 6 minute walk on room air and her IV solumedrol is converted to a 30 day taper of prednisone 2. HTN - BP still mildly elevated, increased Losartan to 50mg and continue HCTZ. 3. AR - stable, continued medication. Disposition home Diet cardiac Scheduled Albuterol Sulfate (Albuterol Sulfate Neb Soln), 1 VIAL NEB PRN Q4HRS Benzonatate (Tessalon Perle), 1 CAP PO TID Budesonide (Budesonide), 0.5 MG NEB RTBID Cetirizine Hcl (Cetirizine Hcl), 10 MG PO DAILY Fluticasone Propionate (Fluticasone Propionate Nasal [place]), 2 SPRAY NS DAILY Hydrochlorothiazide (Hydrochlorothiazide Tablet ), 25 MG PO DAILY Losartan Potassium (Cozaar ), 50 MG PO DAILY Montelukast Sodium (Montelukast Sodium Tablet), 10 MG PO QHS Oxybutynin Chloride (Oxybutynin Chloride), 1 TAB PO BID Prednisone (Prednisone ), 10 MG PO UD Follow Up 1-2 weeks with Ama Moss MD February 04, 2019 15:58
--- NOTE | 2019-02-04 16:48 | NUR ---
Discharge Note: PT DISCHARGED HOME WITH SELF CARE, PT STABLE UPON DISCHARGE, PIV REMOVED WITHOUT COMPLICATIONS. PT GIVEN CAB PASS TO RETURN TO HOME. PT PRESCRIPTIONS CALLED INTO [facility], DUE TO NEEDING MEDICATIONS AT HOME. PT EDUCATED ABOUT ADULT ASTHMA AND ASTMA PREVENTATIVE MEASURES TO PREVENT FLARE UP. PT VOICED NO CONCERNS WITH DISCHARGE INSTRUCTIONS OR MEDICATIONS. YELENA NESS Discharge instructions and discharge home medications reviewed with Patient and a copy given. All questions have been answered and understanding verbalized.
== END 2019-02-04 16:52 | disposition home or self-care (01) | DRG 189 ==
LOC: ER 00:14 → 5 NORTH 02:48
PROVIDERS: ADMIT Family Medicine; ATTEND Family Medicine
DX: J96.01 Acute respiratory failure with hypoxia (principal); J45.41 Moderate persistent asthma with (acute) exacerbation; I10 Essential (primary) hypertension; Z79.899 Other long term (current) drug therapy
CPT/HCPCS: 36415; 36600; 71045; 80053; 81001; 82553; 82805; 83605; 83735; 83880; 84484; 85025; 87804; 93005; 94618; 94640; 94644; 96361; 96365; 96375; J0456; J1100; J2930; J7030; J7613; J7620; J7626; 99285-25

== ENCOUNTER 2019-06-09 06:18 | Day surgery (SDC) | payer MEDICAID ==
[~2019-06-09 06:18] MED LIST changes: +ACETAMINOPHEN 500 MG TABLET PO ONE; +BUDE0.5A NEB; +BUPIVACAINE-EPI 0.25%-1:200000 MPF 30 ML VIAL. INJ ONE; +CETI10TA16 PO; +FLUT16SP NS; +HYDR-2145 PO; +IBUP200T44 PO; +LOSA-73 PO; +MONT10TA49 PO; +PRED-220 PO
[2019-06-09] MEDS ORDERED: AMLO10TA8 PO (06:53)
[2019-06-09] MEDS ORDERED: PRAV40TA2 PO (06:53)
[2019-06-09] MEDS ORDERED: HYDROmorphone 2 MG/ML VIAL IV PRN (07:00)
[2019-06-09] MEDS ORDERED: LIDOCAINE 1% PF 2 ML VIAL. ID PRN (07:00)
[2019-06-09] MEDS ORDERED: IV RINGERS,LACTATED 1000ML 1,000 ML IV SCH (07:00)
[2019-06-09] MEDS ORDERED: MORPHINE SULFATE 2 MG/ML VIAL. IV PRN (07:00)
[2019-06-09] MEDS ORDERED: ONDANSETRON PF 4 MG/2 ML VIAL. IV PRN (07:00)
[2019-06-09] MEDS ORDERED: fentaNYL PF VIAL 100 MCG/2 ML VIAL IV PRN ×2 (07:00)
[2019-06-09] MEDS ORDERED: PROCHLORPERAZINE 10 MG/2 ML VIAL. IV PRN (07:00)
[2019-06-09] MEDS ORDERED: fentaNYL PF VIAL 100 MCG/2 ML VIAL ONE (07:04)
[2019-06-09] MEDS ORDERED: ROCURONIUM 50 MG/5 ML VIAL. ONE (07:04)
[2019-06-09] MEDS ORDERED: DEXAMETHASONE SOD PHOS 4 MG/ML VIAL ONE (07:10)
[2019-06-09] MEDS ORDERED: PROPOFOL 20 ML IV ONE (07:10)
[2019-06-09] MEDS ORDERED: ONDANSETRON PF 4 MG/2 ML VIAL. ONE (07:10)
[2019-06-09] MEDS ORDERED: LIDOCAINE 2% PF 5 ML VIAL. ONE (07:10)
[2019-06-09] MEDS ORDERED: GLYCOPYRROLATE 1 MG/5 ML VIAL. ONE (08:12)
[2019-06-09] MEDS ORDERED: NEOSTIGMINE METHYLSULFATE 5 MG/5 ML SYRINGE. ONE (08:13)
[2019-06-09] MEDS ORDERED: SEVOFLURANE 61 TO 120 MINUTES. IH ONE (08:16)
--- NOTE | 2019-06-09 09:13 | PDOC4 ---
Operative Note Operative Note Date: 06/09/2019 Preoperative diagnosis: Right inguinal hernia possible left inguinal hernia Postoperative diagnosis bilateral inguinal hernias Procedure: Robotic-assisted laparoscopic bilateral inguinal hernia repair with mesh Surgeon: Madhu Specimen: None Dictation: Patient is a 68-year-old female is a painful bulge in the right groin consistent with a hernia she also has some pain in her left groin concern for hernia there procedure of bilateral inguinal hernia repair with mesh was explained to the patient detail risk benefits were also discussed including bleeding infection injury to intra-abdominal contents possibly necessitating further or open operations alternatives to this procedure also discussed with the patient who seemed to understand and gave both verbal and written consent to have the procedure performed. Patient was taken to the operating room placed supine position general anesthesia was initiated once patient was sleep and intubated she was placed in low lithotomy positioning and her abdomen was prepped and draped usual sterile fashion using ChloraPrep and area just above the umbilicus was injected with quarter percent Marcaine with epinephrine incision was made 11 blade scalpel varies needle was placed within the abdomen creating pneumoperitoneum once this was complete 8mm da Dilshad port was placed and a da Dilshad camera was placed within the abdomen which was inspected was noted that she did have a right inguinal hernia as well as a left inguinal hernia. At this point the peritoneum was incised on the right side and no window propagated inferiorly exposing the hernia reducing the hernia contents. Similarly the left peritoneum was incised window propagated posteriorly reducing all the hernia contents. 3-D max Bard mesh for the right and left side medium- size were placed over the hernia defects in the peritoneum was then closed with a running 20V LOC absorbable suture. Once this was complete the pneumoperitoneum was reduced all ports removed and the incisions of the port sites were closed for septic and a Monocryl Mastisol Steri-Strips and island dressings were applied patient was wakened X made in the operating room taken to recovery in stable condition all sponge instrument needle counts listed as correct estimated blood loss 5 mL GINNY GAYTAN MD Jun 09, 2019 09:13
--- NOTE | 2019-06-09 09:15 | DISCH ---
DISCHARGE INSTRUCTIONS Condition on Discharge Condition on Discharge: Stable Activity After Discharge Activity Instructions for Disc: Avoid exertion Other activity instructions: no lifting more than 20 pounds for 2 weeks Exercise Instruction after Dis: Progress as tolerated Diet after Discharge Diet after Discharge: Cardiac Diet Texture: Regular Wound Incision Care Wound/Incision Care: No wound care needed Other wound/incision instructi: May shower in 24 hours Contacting the after DC Call your doctor for: If your condition worsens Follow-Up Follow up with: Dr. Gaytan in 2 weeks GINNY GAYTAN MD Jun 09, 2019 09:15
[2019-06-09 09:56] VITALS: BP 157/84
[2019-06-09] MEDS ORDERED: ceFAZolin SODIUM IV Push 1 GM VIAL. IVP ONE (20:00)
== END 2019-06-09 10:35 | disposition home or self-care (01) ==
LOC: SURG 06:18
PROVIDERS: ATTEND Surgery
DX: K40.20 Bilateral inguinal hernia, without obstruction or gangrene, not specified as recurrent (principal); I10 Essential (primary) hypertension; E78.5 Hyperlipidemia, unspecified; E11.9 Type 2 diabetes mellitus without complications; Z85.038 Personal history of other malignant neoplasm of large intestine; Z98.890 Other specified postprocedural states; Z79.84 Long term (current) use of oral hypoglycemic drugs
CPT/HCPCS: 49650; A7015; C1781; J0690; J1100; J2001; J2405; J2704; J2710; J3010; J3490; S2900

== ENCOUNTER → 2019-06-21 | Outpatient (CLI) | payer MEDICAID ==
[2019-06-09 09:56] VITALS: BP 157/84
[~2019-06-21] MED LIST changes: -ACETAMINOPHEN 500 MG TABLET PO ONE; +AMLO10TA8 PO; -BUPIVACAINE-EPI 0.25%-1:200000 MPF 30 ML VIAL. INJ ONE; +PRAV40TA2 PO
--- NOTE | 2019-06-23 16:37 | RAD ---
DATE: 06/21/2019 EXAM: MAMMO CHRISTIN SCREENING BILATERAL HISTORY: Routine screening COMPARISON: 02/02/2014, 02/08/2015, 02/06/2016 and 06/16/2018 mammographic exams This study was interpreted with the benefit of Computerized Aided Detection (CAD). Breast Density: HETERO The breast parenchyma is heterogenously dense, which could reduce sensitivity of mammography. Breast parenchyma level C. FINDINGS: Benign calcifications are present. No masses or distortion. IMPRESSION: Stable BI-RADS CATEGORY: 1 NEGATIVE RECOMMENDED FOLLOW-UP: 12M 12 MONTH FOLLOW-UP PQRS compliance statement: Patient information was entered into a reminder system with a target due date for the next mammogram. Mammography is a sensitive method for finding small breast cancers, but it does not detect them all and is not a substitute for careful clinical examination. A negative mammogram does not negate a clinically suspicious finding and should not result in delay in biopsying a clinically suspicious abnormality. "Our facility is accredited by the [employer] Mammography Program."
== END | disposition home or self-care (01) ==
LOC: MAMMO 08:02
PROVIDERS: ATTEND Family Medicine
DX: Z12.31 Encounter for screening mammogram for malignant neoplasm of breast (principal); N64.89 Other specified disorders of breast
CPT/HCPCS: 77063; 77067

== ENCOUNTER → 2020-06-25 | Outpatient (CLI) | payer MEDICAID ==
[~2020-06-25] MED LIST changes: +OXYB5TAB10 PO; -OXYB5TAB7 PO
--- NOTE | 2020-06-25 19:00 | RAD ---
BILATERAL SCREENING MAMMOGRAM, 3-D History: Routine screening. Comparison: 01/31/2013 and subsequent exams. Technique: MLO and CC digital tomosynthesis (3D) images obtained. Radiologist reviewed these images on dedicated workstation. Findings: Breast Tissue Density C : The breasts are heterogeneously dense, which may obscure small masses. There are no dominant masses, suspicious microcalcifications, or architectural distortion. IMPRESSION: No mammographic evidence of malignancy. Recommend routine screening. BI-RADS category 1: Negative. The images were reviewed with computer-aided detection. Patient information is entered into reminder system with a target due date for the next screening mammogram. Mammography is the most sensitive method for finding small breast cancers, but it does not detect them all and is not a substitute for careful clinical examination. A negative mammogram does not negate a clinically suspicious finding and should not result in delay in biopsying a clinically suspicious abnormality. "Our facility is accredited by the [employer] Mammography Program." Electronically signed by: Michele Boyd MD (06/25/2020 6:57 PM) [id number]
== END | disposition home or self-care (01) ==
LOC: MAMMO 08:58
PROVIDERS: ATTEND Family Medicine
DX: Z12.31 Encounter for screening mammogram for malignant neoplasm of breast (principal)
CPT/HCPCS: 77063; 77067

== ENCOUNTER → 2020-11-26 | Outpatient (CLI) | payer MEDICAID ==
[~2020-11-26] MED LIST changes: +AMLO-187 PO; -AMLO10TA8 PO
--- NOTE | 2020-11-26 18:48 | RAD ---
Procedure: Renal Duplex Complete Clinical information: Essential hypertension Technique: Multiple longitudinal and transverse 2D real time grayscale and Doppler ultrasound images through the kidneys were acquired. Findings: Abdominal aorta shows extensive atherosclerotic plaque with proximal peak systolic velocity of 137 cm /s, mid peak systolic velocity of 199.4 cm/s, and the distal peak systolic velocity of 165.4 cm per s ec. No aneurysm is identified. The kidneys are normal in size, contour, cortical thickness, and echogenicity. The right kidney measu res 10.5 x 4.3 x 3.0 cm and left kidney wpyukdxy91.5 x 2.6 x 3.5 cm. The left kidney was difficult to visualize. There is no evidence of renal calculi. There is no evidence of hydronephrosis. There is n o evidence of a renal mass. Doppler interrogation reveals normal flow within the renal arteries bilaterally. Proximal mid and distal right renal artery velocities are 177, 107 and 95 cm per sec respectively wit h resistive indices ranging between 0.84 and 0.86. The proximal left renal artery was not well seen but the middle and distal left renal artery peak sys tolic velocities of 102 and 61 cm per sec respectively with resistive indices of 0.75 and 0.67 respec tively as well. Relative to the abdominal aorta, significant elevation of the renal artery velocities is not apprecia tim. Renal artery to aortic ratio on the right is 0.54. On the left, renal artery to aortic ratio is 0.95. Impression: 1. Extensive atherosclerotic calcification abdominal aorta resulting in findings of luminal stenosis as described. Consider correlation with CTA or MRA. 2. The peak systolic velocity in the proximal right renal artery approaches 180 cm/s which would sugg est the presence of a stenosis greater than 60 percent. Otherwise, hemodynamically significant stenos is is not appreciated in the renal arteries although the left proximal renal artery is not well seen Electronically signed by: Sukumar Yoder MD (11/26/2020 6:45 PM) [id number]
== END ==
LOC: US 12:28
PROVIDERS: ATTEND Family Medicine
DX: I10 Essential (primary) hypertension (principal); I70.0 Atherosclerosis of aorta; M48.061 Spinal stenosis, lumbar region without neurogenic claudication
CPT/HCPCS: 76770

== ENCOUNTER → 2021-06-30 | Outpatient (CLI) | payer MEDICARE, MEDICAID ==
--- NOTE | 2021-06-30 09:50 | RAD ---
EXAM: Bilateral digital screening mammogram with tomosynthesis. HISTORY: 71-year-old female presents for screening mammography. TECHNIQUE: Full-field digital craniocaudal and mediolateral oblique 2D and 3D tomosynthesis images of both breasts are obtained for evaluation. Computer aided detection was applied. COMPARISON: 06/25/2020 and 06/21/2019 BREAST PARENCHYMAL DENSITY: Level C - Heterogeneously dense. FINDINGS: There is no new suspicious mass, microcalcification or region of architectural distortion. There is a stable circumscribed nodule within the superior lateral left breast, likely due to a benig n intramammary lymph node. IMPRESSION: BI-RADS Category 2: Benign finding(s). RECOMMENDATION: Annual mammography is recommended. If your mammogram demonstrates that you have dense breast tissue, which could hide abnormalities, and if you have other risk factors for breast cancer that have been identified, you might benefit from s upplemental screening tests that may be suggested by your ordering physician. Dense breast tissue, i n and of itself, is a relatively common condition. This information is not provided to cause undue c oncern, but rather to raise your awareness and to promote discussion with your physician regarding th e presence of other risk factors, in addition to dense breast tissue. A report of your mammography re sults will be sent to you and your physician. You should contact your physician if you have any ques tions or concerns regarding this report. Mammography is a sensitive method for finding small breast cancers, but it does not detect them all a nd is not a substitute for careful clinical examination. A negative mammogram does not negate a clin ically suspicious finding and should not result in delay in biopsying a clinically suspicious abnorma lity. PQRS compliance statement - Patient information was entered into a reminder system with a target due date for the next mammogram. "Our facility is accredited by the [employer] Mammography Program." Electronically signed by: Lisa Gates MD (06/30/2021 9:47 AM) [id number]
== END ==
LOC: MAMMO 10:09
PROVIDERS: ATTEND Family Medicine
DX: Z12.31 Encounter for screening mammogram for malignant neoplasm of breast (principal)
CPT/HCPCS: 77063; 77067

== ENCOUNTER 2021-10-29 17:01 | Inpatient (IN) | payer OTHER, MEDICAID ==
[~2021-10-29] VITALS: Ht 154.9 cm; Wt 37.8 kg
[2021-10-29] MEDS ORDERED: LABETALOL 20 MG/4 ML DISP.SYRIN. IVP ONE (17:30)
[2021-10-29 18:10] LABS: BASO # 0.1 x10^3/uL (0.0-0.2); BASO % 1 % (0-3); EOS % 0 % (0-3); HEMATOCRIT 41.2 % (36.0-47.0); HEMOGLOBIN 14.2 g/dL (12.0-15.5); LYMPH # 2.3 x10^3/uL (1.0-4.8); LYMPH % 20 % (24-48); MEAN CORPUSCULAR HEMOGLOBIN 32 pg (25-35); MEAN CORPUSCULAR HGB CONC 34 g/dL (31-37); MEAN CORPUSCULAR VOLUME 94 fL (79-100); MONO # 0.6 x10^3/uL (0.0-1.1); MONO % 5 % (0-9); NEUT # 8.9 x10^3/uL (1.8-7.7); NEUT % 75 % (31-73); PLATELET COUNT 473 x10^3/uL (140-400); RED BLOOD COUNT 4.37 x10^6/uL (3.50-5.40); RED CELL DISTRIBUTION WIDTH 12.4 % (11.5-14.5); WHITE BLOOD COUNT 11.9 x10^3/uL (4.0-11.0)
--- NOTE | 2021-10-29 18:11 | RAD ---
XR CHEST 1V History: Reason: syncope / Spl. Instructions: / History: Comparison: February 01, 2019 Findings: No consolidation or pleural effusion. Normal heart size. No pneumothorax. Hyperinflation. Prior granu lomatous disease within the chest. Impression: 1. No acute cardiopulmonary process. Electronically signed by: Patrick Knott DO (10/29/2021 6:09 PM) [facility] [place]
[2021-10-29 18:16] LABS: INFLUENZA A PATIENT NEGATIVE (NEGATIVE); INFLUENZA B PATIENT NEGATIVE (NEGATIVE)
[2021-10-29 18:23] LABS: ALBUMIN 4.3 g/dL (3.4-5.0); ALBUMIN/GLOBULIN RATIO 0.8 (1.0-1.7); CALCIUM 9.6 mg/dL (8.5-10.1); GFR 66.3; MAGNESIUM 1.8 mg/dL (1.8-2.4); TOTAL BILIRUBIN 0.3 mg/dL (0.2-1.0); TOTAL PROTEIN 9.4 g/dL (6.4-8.2)
[2021-10-29 18:35] LABS: POTASSIUM 2.8 mmol/L (3.5-5.1)
[2021-10-29] MEDS ORDERED: IOHEXOL 350 MG/ML 100 ML VIAL. IV ONE (18:45)
[2021-10-29] MEDS ORDERED: CONTRAST GIVEN. MC PRN (18:45)
--- NOTE | 2021-10-29 19:10 | RAD ---
CT head without contrast PQRS statement: CT scans at this facility use dose reduction including either automated exposure cont rol, iterative reconstructions, and /or weight based radiation dosing via mA and kV modification when appropriate to reduce radiation dose to as low as reasonably achievable. HISTORY: Syncope. FINDINGS: No intracranial hemorrhage, mass, hydrocephalus, extra-axial fluid collections or infarctio n. Orbits demonstrate a chronic appearing left medial orbital wall blowout fracture. Partial opacific ation of the right frontal and anterior ethmoid sinuses. Mastoids, skull base and calvarium intact. IMPRESSION: No acute intracranial CT abnormality. Incidental findings as described above. Electronically signed by: Eldon Aleman MD (10/29/2021 7:07 PM) [facility]
[2021-10-29] MEDS ORDERED: POTASSIUM CHLORIDE 20 MEQ TABLET.ER. PO ONE (19:15)
--- NOTE | 2021-10-29 19:22 | RAD ---
CTA CHEST_ABDOMEN_AND PELVIS History: Tachycardia. Syncope. Diarrhea. Weight loss. Technique: CT of the chest, abdomen and pelvis were performed with intravenous contrast. Coronal and sagittal reconstructions were performed. 3-D reconstructions were performed. Exposure: One or more of the following individualized dose reduction techniques were utilized for thi s examination: 1. Automated exposure control 2. Adjustment of the mA and/or kV according to patient size 3. Use of iterative reconstruction technique. Comparison: None Findings: Chest: No pulmonary embolism. No aortic aneurysm or dissection. Severe atheromatous plaque throughout the aorta. Coronary artery calcifications. No consolidation or pleural effusion. No pneumothorax. N o pathologic lymphadenopathy. Prior granulomatous disease within the chest. Abdomen and pelvis: Tiny caudate hepatic hypodensity measures 3 mm. The spleen, gallbladder and adren al glands are unremarkable. No renal calculus. No hydronephrosis. Tiny left renal cyst. Decompressed urinary bladder. Diffuse colonic wall thickening involving the mid to distal colon. No pneumatosis. No portal venous g as. No pneumoperitoneum. The colon is decompressed. Minimal adjacent fat stranding. Colonic diverticu losis. Normal appendix. No evidence of bowel obstruction. No pathologic lymphadenopathy. No ascites. Dilated common bile duct measures up to 8 mm. Mild intrahepatic ductal dilatation. Mild pancreatic du ctal dilatation. Accessory pancreatic duct noted. Heterogeneous appearance of the uterus with ill-defined masses. Enlarged appearance of the uterus. Ex tensive atheromatous plaque throughout the nonaneurysmal abdominal aorta and branch vessels. Bones: Multilevel lumbar spondylosis most prominent L5-S1. Impression: Chest CT: 1. No acute thoracic pathology. No pulmonary bolus. Abdomen and pelvis CT: 1. Mid to distal colonic wall thickening with pericolonic edema, may represent infectious or inflamm atory colitis. Recommend follow-up after treatment. 2. Mildly dilated bile ducts and pancreatic duct. Recommend correlation with biliary lab values. If persistent clinical concern, MRI/MRCP within without contrast can further evaluate. 3. Enlarged heterogeneous uterus with ill-defined masses, may represent fibroids. Ultrasound can fur ther evaluate if clinically indicated. Electronically signed by: Patrick Knott DO (10/29/2021 7:20 PM) [facility] [place]
--- NOTE | 2021-10-29 21:15 | RAD ---
EXAM: ULTRASOUND PELVIS INDICATION: Reason: pelvic masses / Spl. Instructions: / History: . COMPARISON: CT same day TECHNIQUE: Transabdominal sonography was performed. FINDINGS: Uterus measures 9.1 x 5.8 x 5.4 cm. Endometrium is 8 mm in thickness. Heterogenous appearance of the myometrium. Ovaries are not visualized secondary overlying bowel gas. No free fluid identified and pelvis. IMPRESSION: 1. Endometrium thickness which is abnormal in a postmenopausal female. Differential considerations i nclude endometrial hyperplasia and carcinoma. Recommend correlation with direct visualization. 2. Heterogenous appearance of the myometrium, may relate to underlying fibroids however not well ass essed on ultrasound. If necessary nonemergent/outpatient MRI of the pelvis can better evaluate. Electronically signed by: Lyle Cyr MD (10/29/2021 9:12 PM) [facility]
--- NOTE | 2021-10-29 21:24 | PHYS DOC ---
Past Medical History Past Medical History: Asthma, Hypertension Past Surgical History: Other Additional Past Surgical Histo: CYST REMOVAL Smoking Status: Never Smoker Alcohol Use: None Drug Use: None General Adult EDM: Chief Complaint: SYNCOPE HPI: HPI: Patient is a 71 year old female with a history of hypertension, asthma, who presents to the ED today to be evaluated for a near syncope episode. Patient states since this afternoon she has had diarrhea, nausea, vomiting, and dizziness. She states prior to coming to the ED she was on the toilet trying to have a bowel movement when she felt she was about to pass out. Patient denies any chest pain, shortness of breath. Denies any hematuria, abdominal pain, fever, coughing or congestion. Patient also states she has lost a significant amount of weight without trying. Review of Systems: Review of Systems: Constitutional: Reports weight loss. Denies fever or chills. [] Eyes: Denies change in visual acuity. [] HENT: Denies nasal congestion or sore throat. [] Respiratory: Denies cough or shortness of breath. [] Cardiovascular: Reports near syncope episode denies chest pain or edema. [] GI: Reports nausea, vomiting, diarrhea. Denies abdominal pain, bloody stools : Denies dysuria. [] Musculoskeletal: Denies back pain or joint pain. [] Integument: Denies rash. [] Neurologic: Reports dizziness. Denies headache, focal weakness or sensory changes. [] Psychiatric: Denies depression or anxiety. [] Heart Score: C/O Chest Pain: N/A Risk Factors: Risk Factors: DM, Current or recent (<one month) smoker, HTN, HLP, family history of CAD, obesity. Risk Scores: Score 0 - 3: 2.5% MACE over next 6 weeks - Discharge Home Score 4 - 6: 20.3% MACE over next 6 weeks - Admit for Clinical Observation Score 7 - 10: 72.7% MACE over next 6 weeks - Early Invasive Strategies Current Medications: Current Medications Medications (Trade) Dose Ordered Sig/Ganesh Start Time Stop Time Status Last Admin Dose Admin Info (CONTRAST GIVEN -- Rx MONITORING) 1 each PRN DAILY PRN 10/29/21 18:45 10/31/21 18:44 Iohexol (Omnipaque 350 Mg/ml) 100 ml 1X ONCE 10/29/21 18:45 10/29/21 18:46 DC 10/29/21 19:00 100 ML Labetalol HCl (Normodyne Iv Push) 10 mg 1X ONCE 10/29/21 17:30 10/29/21 17:35 DC 10/29/21 18:03 10 MG Potassium Chloride (Klor-Con) 40 meq 1X ONCE 10/29/21 19:15 10/29/21 19:16 DC 10/29/21 19:20 40 MEQ Allergies: Allergies: Allergies Coded Allergies Type Severity Reaction Last Updated Verified No Known Drug Allergies 06/09/19 No Physical Exam: PE: Constitutional: Thin appearing patient, no acute distress, non-toxic appearance. [] HENT: Normocephalic, atraumatic, bilateral external ears normal, oropharynx moist, no oral exudates, nose normal. [] Eyes: PERRLA, EOMI, conjunctiva normal, no discharge. [] Neck: Normal range of motion, no tenderness, supple, no stridor. [] Cardiovascular:Heart rate regular rhythm, no murmur [] Lungs & Thorax: Bilateral breath sounds clear to auscultation [] Abdomen: Bowel sounds normal, soft, no tenderness, no masses, no pulsatile masses. [] Skin: Warm, dry, no erythema, no rash. [] Back: No tenderness, no CVA tenderness. [] Extremities: No tenderness, no cyanosis, no clubbing, ROM intact, no edema. [] Neurologic: Alert and oriented X 3, normal motor function, normal sensory function, no focal deficits noted. Nerves II through XII intact Psychologic: Affect normal, judgement normal, mood normal. [] Current Patient Data: Labs: Laboratory Tests Test 10/29/21 17:24 10/29/21 17:51 10/29/21 18:30 White Blood Count 11.9 x10^3/uL (4.0-11.0) H Red Blood Count 4.37 x10^6/uL (3.50-5.40) Hemoglobin 14.2 g/dL (12.0-15.5) Hematocrit 41.2 % (36.0-47.0) Mean Corpuscular Volume 94 fL (79-100) Mean Corpuscular Hemoglobin 32 pg (25-35) Mean Corpuscular Hemoglobin Concent 34 g/dL (31-37) Red Cell Distribution Width 12.4 % (11.5-14.5) Platelet Count 473 x10^3/uL (140-400) H Neutrophils (%) (Auto) 75 % (31-73) H Lymphocytes (%) (Auto) 20 % (24-48) L Monocytes (%) (Auto) 5 % (0-9) Eosinophils (%) (Auto) 0 % (0-3) Basophils (%) (Auto) 1 % (0-3) Neutrophils # (Auto) 8.9 x10^3/uL (1.8-7.7) H Lymphocytes # (Auto) 2.3 x10^3/uL (1.0-4.8) Monocytes # (Auto) 0.6 x10^3/uL (0.0-1.1) Eosinophils # (Auto) 0.0 x10^3/uL (0.0-0.7) Basophils # (Auto) 0.1 x10^3/uL (0.0-0.2) Sodium Level 141 mmol/L (136-145) Potassium Level 2.8 mmol/L (3.5-5.1) *L Chloride Level 99 mmol/L (98-107) Carbon Dioxide Level 30 mmol/L (21-32) Anion Gap 12 (6-14) Blood Urea Nitrogen 22 mg/dL (7-20) H Creatinine 1.0 mg/dL (0.6-1.0) Estimated GFR (Cockcroft-Gault) 66.3 BUN/Creatinine Ratio 22 (6-20) H Glucose Level 162 mg/dL (70-99) H Calcium Level 9.6 mg/dL (8.5-10.1) Magnesium Level 1.8 mg/dL (1.8-2.4) Total Bilirubin 0.3 mg/dL (0.2-1.0) Aspartate Amino Transferase (AST) 53 U/L (15-37) H Alanine Aminotransferase (ALT) 37 U/L (14-59) Alkaline Phosphatase 65 U/L (46-116) Troponin I High Sensitivity 10 ng/L (4-50) 12 ng/L (4-50) XM-Csx-K-Type Natriuretic Peptide 118 pg/mL (0-124) Total Protein 9.4 g/dL (6.4-8.2) H Albumin 4.3 g/dL (3.4-5.0) Albumin/Globulin Ratio 0.8 (1.0-1.7) L Influenza Type A Antigen Negative (NEGATIVE) Influenza Type B Antigen Negative (NEGATIVE) SARS-CoV-2 Antigen (Rapid) Negative (NEGATIVE) Laboratory Tests 10/29/21 17:24 Laboratory Tests 10/29/21 17:24 Vital Signs: Vital Signs Date Time Temp Pulse Resp B/P (MAP) Pulse Ox O2 Delivery O2 Flow Rate FiO2 10/29/21 18:13 84 17 153/81 (105) 100 Room Air 10/29/21 17:43 98.3 98.3 EKG: EK interpreted by Dr. Song sinus rhythm heart rate 93 no STEMI [] Radiology/Procedures: Radiology/Procedures: []PROCEDURE: PELVIS COMPLETE EXAM: ULTRASOUND PELVIS INDICATION: Reason: pelvic masses / Spl. Instructions: / History: . COMPARISON: CT same day TECHNIQUE: Transabdominal sonography was performed. FINDINGS: Uterus measures 9.1 x 5.8 x 5.4 cm. Endometrium is 8 mm in thickness. Heterogenous appearance of the myometrium. Ovaries are not visualized secondary overlying bowel gas. No free fluid identified and pelvis. IMPRESSION: 1. Endometrium thickness which is abnormal in a postmenopausal female. Differential considerations include endometrial hyperplasia and carcinoma. Recommend correlation with direct visualization. 2. Heterogenous appearance of the myometrium, may relate to underlying fibroids however not well assessed on ultrasound. If necessary nonemergent/outpatient MRI of the pelvis can better evaluate. Electronically signed by: Lyle Navarrete MD (10/29/2021 9:12 PM) [facility] DICTATED and SIGNED BY: LYLE NAVARRETE MD DATE: 10/29/21 [id number] PROCEDURE: CT HEAD WO CONTRAST CT head without contrast PQRS statement: CT scans at this facility use dose reduction including either automated exposure control, iterative reconstructions, and /or weight based radiation dosing via mA and kV modification when appropriate to reduce radiation dose to as low as reasonably achievable. HISTORY: Syncope. FINDINGS: No intracranial hemorrhage, mass, hydrocephalus, extra-axial fluid collections or infarction. Orbits demonstrate a chronic appearing left medial orbital wall blowout fracture. Partial opacification of the right frontal and anterior ethmoid sinuses. Mastoids, skull base and calvarium intact. IMPRESSION: No acute intracranial CT abnormality. Incidental findings as described above. Electronically signed by: Jonathan Aleman MD (10/29/2021 7:07 PM) [facility] [place] DICTATED and SIGNED BY: JONATHAN ALEMAN MD DATE: 10/29/21 [id number] PROCEDURE: CT ANGIO CHEST W ABD PEL W/ CTA CHEST_ABDOMEN_AND PELVIS History: Tachycardia. Syncope. Diarrhea. Weight loss. Technique: CT of the chest, abdomen and pelvis were performed with intravenous contrast. Coronal and sagittal reconstructions were performed. 3-D re constructions were performed. Exposure: One or more of the following individualized dose reduction techniques were utilized for this examination: 1. Automated exposure control 2. Adjustment of the mA and/or kV according to patient size 3. Use of iterative reconstruction technique. Comparison: None Findings: Chest: No pulmonary embolism. No aortic aneurysm or dissection. Severe atheromatous plaque throughout the aorta. Coronary artery calcifications. No consolidation or pleural effusion. No pneumothorax. No pathologic lymphadenopathy. Prior granulomatous disease within the chest. Abdomen and pelvis: Tiny caudate hepatic hypodensity measures 3 mm. The spleen, gallbladder and adrenal glands are unremarkable. No renal calculus. No hydronephrosis. Tiny left renal cyst. Decompressed urinary bladder. Diffuse colonic wall thickening involving the mid to distal colon. No pneumatosis. No portal venous gas. No pneumoperitoneum. The colon is decompressed. Minimal adjacent fat stranding. Colonic diverticulosis. Normal appendix. No evidence of bowel obstruction. No pathologic lymphadenopathy. No ascites. Dilated common bile duct measures up to 8 mm. Mild intrahepatic ductal dilatat ion. Mild pancreatic ductal dilatation. Accessory pancreatic duct noted. Heterogeneous appearance of the uterus with ill-defined masses. Enlarged appearance of the uterus. Extensive atheromatous plaque throughout the nonaneurysmal abdominal aorta and branch vessels. Bones: Multilevel lumbar spondylosis most prominent L5-S1. Impression: Chest CT: 1. No acute thoracic pathology. No pulmonary bolus. Abdomen and pelvis CT: 1. Mid to distal colonic wall thickening with pericolonic edema, may represent infectious or inflammatory colitis. Recommend follow-up after treatment. 2. Mildly dilated bile ducts and pancreatic duct. Recommend correlation with biliary lab values. If persistent clinical concern, MRI/MRCP within without contrast can further evaluate. 3. Enlarged heterogeneous uterus with ill-defined masses, may represent fibroids. Ultrasound can further evaluate if clinically indicated. Electronically signed by: Patrick Chahal DO (10/29/2021 7:20 PM) [facility] DICTATED and SIGNED BY: PATRICK CHAHAL DO DATE: 10/29/21 [id number] PROCEDURE: PORTABLE CHEST 1V XR CHEST 1V History: Reason: syncope / Spl. Instructions: / History: Comparison: February 01, 2019 Findings: No consolidation or pleural effusion. Normal heart size. No pneumothorax. Hyperinflation. Prior granulomatous disease within the chest. Impression: 1. No acute cardiopulmonary process. Electronically signed by: Patrick Chahal DO (10/29/2021 6:09 PM) [facility] DICTATED and SIGNED BY: PATRICK CHAHAL DO DATE: 10/29/21 [id number] Course & Med Decision Making: Course & Med Decision Making Pertinent Labs and Imaging studies reviewed. (See chart for details) This is a 71-year-old female patient presenting to the ED today to be evaluated for near syncope episode, dizziness, nausea, vomiting and diarrhea that began this afternoon. Patient is also complaining of unintentional weight loss. She appears very thin currently 41.[address] of the head is negative for any acute findings, considering patient's significant weight loss we did a CT with IV contrast of the chest, abdomen and pelvis CT of the chest is negative, CT of the abdomen noted for colitis, CT of the pelvis was noted for uterine masses/fibroids. They recommended pelvic ultrasound. Pelvic Ultrasound noted for endometrium thickness which is abnormal in a postmenopausal female. Differential considerations include endometrial hyperplasia and carcinoma. Recommend correlation with direct visualization. Routine consult placed for OBGYN CBC with a WBC of 11.9, CMP with potassium of 2.8, patient was given oral potassium replacement as well as admitted with IV fluids with potassium. Started on Cipro and Flagyl for colitis. Spoke with Dr. Lizarraga who accepted patient for admission Renny Disclaimer: Renny Disclaimer: This electronic medical record was generated, in whole or in part, using a voice recognition dictation system. Departure Departure Impression: Primary Impression: Near syncope Additional Impressions: Hypokalemia Acute colitis Endometrial mass Disposition: ADMITTED INPATIENT Condition: STABLE Referrals: DANIEL VO MD (PCP) VAL JOHN APRN Oct 29, 2021 21:24
[2021-10-29] MEDS ORDERED: ONDANSETRON PF 4 MG/2 ML VIAL. IVP PRN (21:45)
[2021-10-29] MEDS ORDERED: CIPROFLOXACIN 400MG PREMIX 200 ML IV ONE (21:45)
[2021-10-29] MEDS ORDERED: MORPHINE SULFATE 2 MG/ML INJ. IVP PRN (21:45)
[2021-10-29 22:11] VITALS: BP 193/102
[2021-10-29] MEDS: cloNIDine HCL 0.1 MG TABLET PO PRN (22:51)
--- NOTE | 2021-10-29 22:58 | NUR ---
Admit from ER to [address] [place] [address] room 654 via [facility]. Stood from [facility] and ambulated to bed with standby assist. A/O x 4. Pleasant. Cooperative. Orientated to room and call light. Reviewed POC to include Tele monitor, IVF, IV ABx and to call for assist when out of bed. Verbalized understanding. Resting in bed. Eating Jello. Watching TV. Call light at hand. Bed alarm on.
[2021-10-30 02:31] VITALS: BP 126/69
[2021-10-30 03:32] LABS: BILIRUBIN,URINE NEGATIVE (NEG); CLARITY,URINE CLEAR; COLOR,URINE YELLOW; NITRITE,URINE NEGATIVE (NEG); PROTEIN,URINE NEGATIVE (NEG-TRACE); UROBILINOGEN,URINE 0.2 mg/dL (0.2 mg/dL)
[2021-10-30 03:39] LABS: BACTERIA,URINE FEW /HPF (0-FEW); BARBITURATES NEG (NEG); BENZODIAZEPINES NEG (NEG); CANNABINOIDS NEG (NEG); COCAINE NEG (NEG); METHADONE NEG (NEG); OPIATES NEG (NEG); PHENCYCLIDINE NEG (NEG); RBC,URINE 0 /HPF (0-2)
[2021-10-30 03:41] LABS: AMPHETAMINE/METHAMPHETAMINE NEG (NEG)
[2021-10-30 04:26] LABS: BASO % 0 % (0-3); EOS % 0 % (0-3); HEMATOCRIT 37.3 % (36.0-47.0); HEMOGLOBIN 12.9 g/dL (12.0-15.5); LYMPH # 1.4 x10^3/uL (1.0-4.8); LYMPH % 17 % (24-48); MEAN CORPUSCULAR HEMOGLOBIN 32 pg (25-35); MEAN CORPUSCULAR HGB CONC 35 g/dL (31-37); MEAN CORPUSCULAR VOLUME 94 fL (79-100); MONO # 0.6 x10^3/uL (0.0-1.1); MONO % 7 % (0-9); NEUT # 6.2 x10^3/uL (1.8-7.7); NEUT % 75 % (31-73); PLATELET COUNT 394 x10^3/uL (140-400); RED BLOOD COUNT 3.98 x10^6/uL (3.50-5.40); RED CELL DISTRIBUTION WIDTH 12.7 % (11.5-14.5); WHITE BLOOD COUNT 8.2 x10^3/uL (4.0-11.0)
[2021-10-30 04:45] LABS: ALBUMIN 3.3 g/dL (3.4-5.0); ALBUMIN/GLOBULIN RATIO 0.9 (1.0-1.7); CALCIUM 8.5 mg/dL (8.5-10.1); GFR 66.3; POTASSIUM 3.3 mmol/L (3.5-5.1); TOTAL BILIRUBIN 0.1 mg/dL (0.2-1.0); TOTAL PROTEIN 6.8 g/dL (6.4-8.2)
[2021-10-30 07:34] VITALS: BP 140/75
--- NOTE | 2021-10-30 08:26 | EKG ---
[facility] [address] [place] [address] Test Date: 2021-10-29 Test Time: 17:46:41 Pat Name: YELENA NESS Department: Room: 4 Gender: F Housekeeping Associate: : 1950 Requested By: VAL JOHN Order Number: [id number] Reading MD: Darren Mckoy Measurements Intervals [place] Rate: 93 P: 66 MI: 138 QRS: -16 QRSD: 80 T: 69 QT: 380 QTc: 475 Interpretive Statements SINUS RHYTHM POSSIBLE LEFT ATRIAL ABNORMALITY PROLONGED QT Electronically Signed On 10-30-2021 13:45:51 [employer] by Darren Mckoy
--- NOTE | 2021-10-30 09:04 | PDOC1 ---
History and Physical Date of Admission Date of Admission DATE: 10/30/21 TIME: 09:03 Identification/Chief Complaint Chief Complaint Syncope Source Source: Patient History of Present Illness History of Present Illness Ms Gray is a 71 yo female w/ PMHx HTN, asthma, allergic rhinitis who comes to ED on 10/29/21 c/o dizziness and weakness, near syncope trying to get off the toilet She became nauseated around [id number] on 10/29/21 and later in the day had vomiting and diarrhea. No pets or recent sick contacts. She notes for breakfast on 10/29 she had eggs and cheese with toast, her also ate this. On 10/28 for dinner had macaroni and cheese, hamburger, sweet potatoes, and rice and her also ate the same meal, did not become ill. Over the last 2 months notes weight loss unintentionally possibly 20 pounds, though no change in appetite or PO intake. No prior EGD or colonoscopy. WBC 11.9, Hb 14.2, platelets 473, NA 141, K2.8, BUN 22, CR 1, glucose 162, calcium 9.6, magnesium 1.8, bilirubin 0.3, AST 53, ALT 37, alkaline phosphatase 65, albumin 4.3, NT proBNP 118, high-sensitivity troponins are 10, 12, 15, urine drug screen negative, urinalysis bland, rapid influenza and rapid COVID-19 both negative. EKG with prolonged QT otherwise sinus, no ST changes or TWI CT head negative for intracranial pathology. CXR negative for abnormality. CT chest negative. CT findings of mid-distal colonic wall thickening with mildly dilated CBD (8mm) and PD. Also notable for enlarged heterogeneous uterus with ill-defined masses confirmed with pelvic ultrasound revealing thickened endometrium and fibroids. Admitted for further care. Given cipro and flagyl Past Medical History Cardiovascular: HTN Pulmonary: Asthma ENT: Allergic Rhinitis Grav: 3 Para: 3 Past Surgical History Past Surgical History bilateral IHR w/ mesh, right ovarian cystectomy Family History Family History: Cancer (Lung - Father) Family History: Parent (Father- lung cancer) Social History Smoke: No ALCOHOL: none Drugs: None Current Problem List Problem List Problems Medical Problems: (1) Acute colitis Status: Acute (2) Endometrial mass Status: Acute (3) Hypokalemia Status: Acute (4) Near syncope Status: Acute Current Medications Current Medications Current Medications Labetalol HCl (Normodyne Iv Push) 10 mg 1X ONCE IVP Last administered on 10/29/21at 18:03; Start 10/29/21 at 17:30; Stop 10/29/21 at 17:35; Status DC Potassium Chloride (Klor-Con) 40 meq 1X ONCE PO Last administered on 10/29/21at 19:20; Start 10/29/21 at 19:15; Stop 10/29/21 at 19:16; Status DC Iohexol (Omnipaque 350 Mg/ml) 100 ml 1X ONCE IV Last administered on 10/29/21at 19:00; Start 10/29/21 at 18:45; Stop 10/29/21 at 18:46; Status DC Info (CONTRAST GIVEN -- Rx MONITORING) 1 each PRN DAILY PRN MC SEE COMMENTS; Start 10/29/21 at 18:45; Stop 10/31/21 at 18:44 Ondansetron HCl (Zofran) 4 mg PRN Q8HRS PRN IVP NAUSEA/VOMITING; Start 10/29/21 at 21:45; Stop 10/30/21 at 21:44 Morphine Sulfate (Morphine Sulfate) 2 mg PRN Q2HR PRN IVP PAIN; Start 10/29/21 at 21:45; Stop 10/30/21 at 21:44 Potassium Chloride/Sodium Chloride 1,000 ml @ 75 mls/hr [id number] ONCE IV Last administered on 10/29/21at 22:10; Start 10/29/21 at 22:00; Stop 10/30/21 at 11:19 Ciprofloxacin/ Dextrose 200 ml @ 200 mls/hr 1X ONCE IV Last administered on 10/29/21at 22:42; Start 10/29/21 at 21:45; Stop 10/29/21 at 22:44; Status DC Metronidazole 100 ml @ 100 mls/hr 1X ONCE IV Last administered on 10/30/21at 00:08; Start 10/29/21 at 22:00; Stop 10/29/21 at 22:59; Status DC Clonidine HCl (Catapres) 0.1 mg PRN Q8HRS PRN PO HYPERTENSION Last administered on 10/29/21at 22:51; Start 10/29/21 at 21:45 Amlodipine Besylate (Norvasc) 10 mg DAILY PO ; Start 10/30/21 at 09:00; Status UNV Budesonide (Pulmicort) 0.5 mg RTBID NEB ; Start 10/30/21 at 20:00; Status UNV Cetirizine HCl (ZyrTEC) 10 mg DAILY PO ; Start 10/30/21 at 09:00; Status UNV Fluticasone Propionate (Flonase) 2 spray DAILY NS ; Start 10/30/21 at 09:00; Status UNV Active Scripts Active Budesonide 0.5 Mg/2 Ml Ampul.neb 0.5 Mg NEB RTBID 30 Days Fluticasone Propionate Nasal [place] (Fluticasone Propionate) 16 Gm [place].susp 2 [place] NS DAILY 30 Days Hydrochlorothiazide Tablet (Hydrochlorothiazide) 25 Mg Tablet 25 Mg PO DAILY 30 Days Cozaar (Losartan Potassium) 50 Mg Tablet 50 Mg PO DAILY 30 Days Cetirizine Hcl 10 Mg Tablet 10 Mg PO DAILY 30 Days Oxybutynin Chloride 5 Mg Tablet 1 Tab PO BID Albuterol Sulfate Neb Soln (Albuterol Sulfate) 2.5 Mg/3 Ml Vial.neb 1 Vial NEB PRN Q4HRS Reported Amlodipine Besylate 10 Mg Tablet 10 Mg PO DAILY Pravastatin Sodium 40 Mg Tablet 1 Tab PO QHS Motrin Ib (Ibuprofen) 200 Mg Tablet 400 Mg PO PRN PRN Montelukast Sodium Tablet (Montelukast Sodium) 10 Mg Tablet 10 Mg PO DAILY Allergies Allergies: Coded Allergies: No Known Drug Allergies (Unverified , 06/09/19) ROS General: YES: Fatigue, Malaise; No: Chills, Night Sweats, Appetite, Other PSYCHOLOGICAL ROS: No: Anxiety, Behavioral Disorder, Concentration difficultie, Decreased libido, Depression, Disorientation, Hallucinations, Hostility, Irritablity, Memory difficulties, Mood Swings, Obsessive thoughts, Physical abuse, Sexual abuse, Sleep disturbances, Suicidal ideation, Other Eyes: No Blurry vision, No Decreased vision, No Double vision, No Dry eyes, No Excessive tearing, No Eye Pain, No Itchy Eyes, No Loss of vision, No Photophobia, No Scotomata, No Uses contacts, No Uses glasses, No Other HEENT: No: Heacaches, Visual Changes, Hearing change, Nasal congestion, Nasal discharge, Oral lesions, Sinus pain, Sore Throat, Epistaxis, Sneezing, Snoring, Tinnitus, Vertigo, Vocal changes, Other ALLERGY AND IMMUNOLOGY: No: Hives, Insect Bite Sensitivity, Itchy/Watery Eyes, Nasal Congestion, Post Nasal Drip, Seasonal Allergies, Other Hematological and Lymphatic: No: Bleeding Problems, Blood Clots, Blood Transfusions, Brusing, Night Sweats, Pallor, Swollen Lymph Nodes, Other ENDOCRINE: No: Breast Changes, Galactorrhea, Hair Pattern Changes, Hot Flashes, Malaise/lethargy, Mood Swings, Palpitations, Polydipsia/polyuria, Skin Changes, Temperature Intolerance, Unexpected Weight Changes, Other Breast: No New/Changing Breast Lumps, No Nipple changes, No Nipple discharge, No Other Respiratory: No: Cough, Hemoptysis, Orthopnea, Pleuritic Pain, Shortness of breath, SOB with excertion, Sputum Changes, Stridor, Tachypnea, Wheezing, Other Cardiovascular: No Chest Pain, No Palpitations, No Orthopnea, No Paroxysmal Noc. Dyspnea, No Edema, No Lt Headedness, No Other Gastrointestinal: Yes Nausea, Yes Diarrhea; No Vomiting, No Abdominal Pain, No Constipation, No Melena, No Hematochezia, No Other Genitourinary: No Dysuria, No Frequency, No Incontinence, No Hematuria, No Retention, No Discharge, No Urgency, No Pain, No Flank Pain, No Other, No , No , No , No , No , No , No Musculoskeletal: No Gait Disturbance, No Joint Pain, No Joint Stiffness, No Joint Swelling, No Muscle Pain, No Muscular Weakness, No Pain In:, No Swelling In:, No Other Neurological: Yes Dizziness; No Behavorial Changes, No Bowel/Bladder ControlChng, No Confusion, No Gait Disturbance, No Headaches, No Impaired Coord/balance, No Memory Loss, No Numbness/Tingling, No Seizures, No Speech Problems, No Tremors, No Visual Changes, No Weakness, No Other Skin: No Dry Skin, No Eczema, No Hair Changes, No Lumps, No Mole Changes, No Mottling, No Nail Changes, No Pruritus, No Rash, No Skin Lesion Changes, No Other, No Acne Physical Exam General: Alert, Oriented X3, Cooperative, No acute distress HEENT: Atraumatic, PERRLA, EOMI, Mucous membr. moist/pink Lungs: Clear to auscultation, Normal air movement Heart: S1S2, RRR, no thrills, no rubs, no gallops, no murmurs Abdomen: Normal bowel sounds, Soft, No hepatosplenomegaly, No masses, Other (epigastric tenderness) Rectal Exam: not examined Extremities: No clubbing, No cyanosis, No edema, Normal pulses, No tenderness/swelling Skin: No rashes, No breakdown, No significant lesion Neuro: Normal gait, Normal speech, Strength at 5/5 X4 ext, Normal tone, Sensation intact, Cranial nerves 3-12 NL, Reflexes 2+ Psych/Mental Status: Mental status NL, Mood NL Vitals Vitals Vital Signs Date Time Temp Pulse Resp B/P (MAP) Pulse Ox O2 Delivery O2 Flow Rate FiO2 10/30/21 07:34 97.3 77 16 140/75 (96) 95 Room Air 97.3 Labs Labs Laboratory Tests Test 10/29/21 17:24 10/29/21 17:51 10/29/21 18:30 10/29/21 23:30 White Blood Count 11.9 x10^3/uL (4.0-11.0) Red Blood Count 4.37 x10^6/uL (3.50-5.40) Hemoglobin 14.2 g/dL (12.0-15.5) Hematocrit 41.2 % (36.0-47.0) Mean Corpuscular Volume 94 fL (79-100) Mean Corpuscular Hemoglobin 32 pg (25-35) Mean Corpuscular Hemoglobin Concent 34 g/dL (31-37) Red Cell Distribution Width 12.4 % (11.5-14.5) Platelet Count 473 x10^3/uL (140-400) Neutrophils (%) (Auto) 75 % (31-73) Lymphocytes (%) (Auto) 20 % (24-48) Monocytes (%) (Auto) 5 % (0-9) Eosinophils (%) (Auto) 0 % (0-3) Basophils (%) (Auto) 1 % (0-3) Neutrophils # (Auto) 8.9 x10^3/uL (1.8-7.7) Lymphocytes # (Auto) 2.3 x10^3/uL (1.0-4.8) Monocytes # (Auto) 0.6 x10^3/uL (0.0-1.1) Eosinophils # (Auto) 0.0 x10^3/uL (0.0-0.7) Basophils # (Auto) 0.1 x10^3/uL (0.0-0.2) Sodium Level 141 mmol/L (136-145) Potassium Level 2.8 mmol/L (3.5-5.1) Chloride Level 99 mmol/L (98-107) Carbon Dioxide Level 30 mmol/L (21-32) Anion Gap 12 (6-14) Blood Urea Nitrogen 22 mg/dL (7-20) Creatinine 1.0 mg/dL (0.6-1.0) Estimated GFR (Cockcroft-Gault) 66.3 BUN/Creatinine Ratio 22 (6-20) Glucose Level 162 mg/dL (70-99) Calcium Level 9.6 mg/dL (8.5-10.1) Magnesium Level 1.8 mg/dL (1.8-2.4) Total Bilirubin 0.3 mg/dL (0.2-1.0) Aspartate Amino Transf (AST/SGOT) 53 U/L (15-37) Alanine Aminotransferase (ALT/SGPT) 37 U/L (14-59) Alkaline Phosphatase 65 U/L (46-116) Troponin I High Sensitivity 10 ng/L (4-50) 12 ng/L (4-50) 15 ng/L (4-50) FS-Aay-K-Type Natriuretic Peptide 118 pg/mL (0-124) Total Protein 9.4 g/dL (6.4-8.2) Albumin 4.3 g/dL (3.4-5.0) Albumin/Globulin Ratio 0.8 (1.0-1.7) Influenza Type A Antigen Negative (NEGATIVE) Influenza Type B Antigen Negative (NEGATIVE) SARS-CoV-2 Antigen (Rapid) Negative (NEGATIVE) Test 10/30/21 03:15 10/30/21 03:25 Urine Collection Type Unknown Urine Color Yellow Urine Clarity Clear Urine pH 6.0 (<5.0-8.0) Urine Specific [place] >=1.030 (1.000-1.030) Urine Protein Negative mg/dL (NEG-TRACE) Urine Glucose (UA) Negative mg/dL (NEG) Urine Ketones (Stick) Negative mg/dL (NEG) Urine Blood Negative (NEG) Urine Nitrite Negative (NEG) Urine Bilirubin Negative (NEG) Urine Urobilinogen Dipstick 0.2 mg/dL (0.2 mg/dL) Urine Leukocyte Esterase Negative (NEG) Urine RBC 0 /HPF (0-2) Urine WBC 1-4 /HPF (0-4) Urine Squamous Epithelial Cells Mod /LPF Urine Bacteria Few /HPF (0-FEW) Urine Opiates Screen Neg (NEG) Urine Methadone Screen Neg (NEG) Urine Barbiturates Neg (NEG) Urine Phencyclidine Screen Neg (NEG) Urine Amphetamine/Methamphetamine Neg (NEG) Urine Benzodiazepines Screen Neg (NEG) Urine Cocaine Screen Neg (NEG) Urine Cannabinoids Screen Neg (NEG) Urine Ethyl Alcohol Neg (NEG) White Blood Count 8.2 x10^3/uL (4.0-11.0) Red Blood Count 3.98 x10^6/uL (3.50-5.40) Hemoglobin 12.9 g/dL (12.0-15.5) Hematocrit 37.3 % (36.0-47.0) Mean Corpuscular Volume 94 fL (79-100) Mean Corpuscular Hemoglobin 32 pg (25-35) Mean Corpuscular Hemoglobin Concent 35 g/dL (31-37) Red Cell Distribution Width 12.7 % (11.5-14.5) Platelet Count 394 x10^3/uL (140-400) Neutrophils (%) (Auto) 75 % (31-73) Lymphocytes (%) (Auto) 17 % (24-48) Monocytes (%) (Auto) 7 % (0-9) Eosinophils (%) (Auto) 0 % (0-3) Basophils (%) (Auto) 0 % (0-3) Neutrophils # (Auto) 6.2 x10^3/uL (1.8-7.7) Lymphocytes # (Auto) 1.4 x10^3/uL (1.0-4.8) Monocytes # (Auto) 0.6 x10^3/uL (0.0-1.1) Eosinophils # (Auto) 0.0 x10^3/uL (0.0-0.7) Basophils # (Auto) 0.0 x10^3/uL (0.0-0.2) Sodium Level 139 mmol/L (136-145) Potassium Level 3.3 mmol/L (3.5-5.1) Chloride Level 103 mmol/L (98-107) Carbon Dioxide Level 29 mmol/L (21-32) Anion Gap 7 (6-14) Blood Urea Nitrogen 19 mg/dL (7-20) Creatinine 1.0 mg/dL (0.6-1.0) Estimated GFR (Cockcroft-Gault) 66.3 BUN/Creatinine Ratio 19 (6-20) Glucose Level 145 mg/dL (70-99) Calcium Level 8.5 mg/dL (8.5-10.1) Total Bilirubin 0.1 mg/dL (0.2-1.0) Aspartate Amino Transf (AST/SGOT) 47 U/L (15-37) Alanine Aminotransferase (ALT/SGPT) 40 U/L (14-59) Alkaline Phosphatase 53 U/L (46-116) Total Protein 6.8 g/dL (6.4-8.2) Albumin 3.3 g/dL (3.4-5.0) Albumin/Globulin Ratio 0.9 (1.0-1.7) Laboratory Tests Test 10/29/21 17:24 10/29/21 17:51 10/29/21 18:30 10/29/21 23:30 White Blood Count 11.9 x10^3/uL (4.0-11.0) Red Blood Count 4.37 x10^6/uL (3.50-5.40) Hemoglobin 14.2 g/dL (12.0-15.5) Hematocrit 41.2 % (36.0-47.0) Mean Corpuscular Volume 94 fL (79-100) Mean Corpuscular Hemoglobin 32 pg (25-35) Mean Corpuscular Hemoglobin Concent 34 g/dL (31-37) Red Cell Distribution Width 12.4 % (11.5-14.5) Platelet Count 473 x10^3/uL (140-400) Neutrophils (%) (Auto) 75 % (31-73) Lymphocytes (%) (Auto) 20 % (24-48) Monocytes (%) (Auto) 5 % (0-9) Eosinophils (%) (Auto) 0 % (0-3) Basophils (%) (Auto) 1 % (0-3) Neutrophils # (Auto) 8.9 x10^3/uL (1.8-7.7) Lymphocytes # (Auto) 2.3 x10^3/uL (1.0-4.8) Monocytes # (Auto) 0.6 x10^3/uL (0.0-1.1) Eosinophils # (Auto) 0.0 x10^3/uL (0.0-0.7) Basophils # (Auto) 0.1 x10^3/uL (0.0-0.2) Sodium Level 141 mmol/L (136-145) Potassium Level 2.8 mmol/L (3.5-5.1) Chloride Level 99 mmol/L (98-107) Carbon Dioxide Level 30 mmol/L (21-32) Anion Gap 12 (6-14) Blood Urea Nitrogen 22 mg/dL (7-20) Creatinine 1.0 mg/dL (0.6-1.0) Estimated GFR (Cockcroft-Gault) 66.3 BUN/Creatinine Ratio 22 (6-20) Glucose Level 162 mg/dL (70-99) Calcium Level 9.6 mg/dL (8.5-10.1) Magnesium Level 1.8 mg/dL (1.8-2.4) Total Bilirubin 0.3 mg/dL (0.2-1.0) Aspartate Amino Transf (AST/SGOT) 53 U/L (15-37) Alanine Aminotransferase (ALT/SGPT) 37 U/L (14-59) Alkaline Phosphatase 65 U/L (46-116) Troponin I High Sensitivity 10 ng/L (4-50) 12 ng/L (4-50) 15 ng/L (4-50) TL-Ahs-S-Type Natriuretic Peptide 118 pg/mL (0-124) Total Protein 9.4 g/dL (6.4-8.2) Albumin 4.3 g/dL (3.4-5.0) Albumin/Globulin Ratio 0.8 (1.0-1.7) Influenza Type A Antigen Negative (NEGATIVE) Influenza Type B Antigen Negative (NEGATIVE) SARS-CoV-2 Antigen (Rapid) Negative (NEGATIVE) Test 10/30/21 03:15 10/30/21 03:25 Urine Collection Type Unknown Urine Color Yellow Urine Clarity Clear Urine pH 6.0 (<5.0-8.0) Urine Specific [place] >=1.030 (1.000-1.030) Urine Protein Negative mg/dL (NEG-TRACE) Urine Glucose (UA) Negative mg/dL (NEG) Urine Ketones (Stick) Negative mg/dL (NEG) Urine Blood Negative (NEG) Urine Nitrite Negative (NEG) Urine Bilirubin Negative (NEG) Urine Urobilinogen Dipstick 0.2 mg/dL (0.2 mg/dL) Urine Leukocyte Esterase Negative (NEG) Urine RBC 0 /HPF (0-2) Urine WBC 1-4 /HPF (0-4) Urine Squamous Epithelial Cells Mod /LPF Urine Bacteria Few /HPF (0-FEW) Urine Opiates Screen Neg (NEG) Urine Methadone Screen Neg (NEG) Urine Barbiturates Neg (NEG) Urine Phencyclidine Screen Neg (NEG) Urine Amphetamine/Methamphetamine Neg (NEG) Urine Benzodiazepines Screen Neg (NEG) Urine Cocaine Screen Neg (NEG) Urine Cannabinoids Screen Neg (NEG) Urine Ethyl Alcohol Neg (NEG) White Blood Count 8.2 x10^3/uL (4.0-11.0) Red Blood Count 3.98 x10^6/uL (3.50-5.40) Hemoglobin 12.9 g/dL (12.0-15.5) Hematocrit 37.3 % (36.0-47.0) Mean Corpuscular Volume 94 fL (79-100) Mean Corpuscular Hemoglobin 32 pg (25-35) Mean Corpuscular Hemoglobin Concent 35 g/dL (31-37) Red Cell Distribution Width 12.7 % (11.5-14.5) Platelet Count 394 x10^3/uL (140-400) Neutrophils (%) (Auto) 75 % (31-73) Lymphocytes (%) (Auto) 17 % (24-48) Monocytes (%) (Auto) 7 % (0-9) Eosinophils (%) (Auto) 0 % (0-3) Basophils (%) (Auto) 0 % (0-3) Neutrophils # (Auto) 6.2 x10^3/uL (1.8-7.7) Lymphocytes # (Auto) 1.4 x10^3/uL (1.0-4.8) Monocytes # (Auto) 0.6 x10^3/uL (0.0-1.1) Eosinophils # (Auto) 0.0 x10^3/uL (0.0-0.7) Basophils # (Auto) 0.0 x10^3/uL (0.0-0.2) Sodium Level 139 mmol/L (136-145) Potassium Level 3.3 mmol/L (3.5-5.1) Chloride Level 103 mmol/L (98-107) Carbon Dioxide Level 29 mmol/L (21-32) Anion Gap 7 (6-14) Blood Urea Nitrogen 19 mg/dL (7-20) Creatinine 1.0 mg/dL (0.6-1.0) Estimated GFR (Cockcroft-Gault) 66.3 BUN/Creatinine Ratio 19 (6-20) Glucose Level 145 mg/dL (70-99) Calcium Level 8.5 mg/dL (8.5-10.1) Total Bilirubin 0.1 mg/dL (0.2-1.0) Aspartate Amino Transf (AST/SGOT) 47 U/L (15-37) Alanine Aminotransferase (ALT/SGPT) 40 U/L (14-59) Alkaline Phosphatase 53 U/L (46-116) Total Protein 6.8 g/dL (6.4-8.2) Albumin 3.3 g/dL (3.4-5.0) Albumin/Globulin Ratio 0.9 (1.0-1.7) Images Images ULTRASOUND PELVIS Uterus measures 9.1 x 5.8 x 5.4 cm. Endometrium is 8 mm in thickness. Heterogenous appearance of the myometrium. Ovaries are not visualized secondary overlying bowel gas. No free fluid identified and pelvis. IMPRESSION: 1. Endometrium thickness which is abnormal in a postmenopausal female. Differential considerations include endometrial hyperplasia and carcinoma. Recommend correlation with direct visualization. 2. Heterogenous appearance of the myometrium, may relate to underlying fibroids however not well assessed on ultrasound. If necessary nonemergent/outpatient MRI of the pelvis can better evaluate. CT head without contrast FINDINGS: No intracranial hemorrhage, mass, hydrocephalus, extra-axial fluid collections or infarction. Orbits demonstrate a chronic appearing left medial orbital wall blowout fracture. Partial opacification of the right frontal and anterior ethmoid sinuses. Mastoids, skull base and calvarium intact. IMPRESSION: No acute intracranial CT abnormality. Incidental findings as desc ribed above. CT ANGIO CHEST W ABD PEL W/ Chest: No pulmonary embolism. No aortic aneurysm or dissection. Severe atheromatous plaque throughout the aorta. Coronary artery calcifications. No consolidation or pleural effusion. No pneumothorax. No pathologic lymphadenopathy. Prior granulomatous disease within the chest. Abdomen and pelvis: Tiny caudate hepatic hypodensity measures 3 mm. The spleen, gallbladder and adrenal glands are unremarkable. No renal calculus. No hydronephrosis. Tiny left renal cyst. Decompressed urinary bladder. Diffuse colonic wall thickening involving the mid to distal colon. No pneumato sis. No portal venous gas. No pneumoperitoneum. The colon is decompressed. Minimal adjacent fat stranding. Colonic diverticulosis. Normal appendix. No evidence of bowel obstruction. No pathologic lymphadenopathy. No ascites. Dilated common bile duct measures up to 8 mm. Mild intrahepatic ductal dilatation. Mild pancreatic ductal dilatation. Accessory pancreatic duct noted. Heterogeneous appearance of the uterus with ill-defined masses. Enlarged appearance of the uterus. Extensive atheromatous plaque throughout the nonaneurysmal abdominal aorta and branch vessels. Bones: Multilevel lumbar spondylosis most prominent L5-S1. Impression: Chest CT: 1. No acute thoracic pathology. No pulmonary bolus. Abdomen and pelvis CT: 1. Mid to distal colonic wall thickening with pericolonic edema, may represent infectious or inflammatory colitis. Recommend follow-up after treatment. 2. Mildly dilated bile ducts and pancreatic duct. Recommend correlation with biliary lab values. If persistent clinical concern, MRI/MRCP within without contrast can further evaluate. 3. Enlarged heterogeneous uterus with ill-defined masses, may represent fibroids. Ultrasound can further evaluate if clinically indicated. XR CHEST 1V No consolidation or pleural effusion. Normal heart size. No pneumothorax. Hyperinflation. Prior granulomatous disease within the chest. Impression: 1. No acute cardiopulmonary process. VTE Prophylaxis Ordered VTE Prophylaxis Devices: No VTE Pharmacological Prophylaxi: Yes Assessment/Plan Assessment/Plan A/P: Presyncope - likely vasovagal due to dehydration, gastroenteritis. No cardiac abnormalities, no PE. Will hydrate, work with PT Colitis - gastroenteritis - likely limited toxigenic food poisoning. Will consult with GI and likely taper antibiotics quickly, patient symptomatically already improving Vomiting - likely self limited gastroenteritis Hypokalemia - replace, check mag Weight loss - abnormal unintentional, concerning. Needs outpatient colonoscopy. D/w winder hand urgently assessing to r/o endometrial pathology would be prudent as well Abnormal abdominal CT - mid to distal colonic wall thickening with pericolonic edema, mildly dilated bile ducts and pancreatic duct. May need outpatient MRCP. GI consulted Thickened endometrium and fibroids - as above, d/w winder hand endometrial biopsy indicated. No post-menopausal bleeding noted per patient Asthma - with allergic rhinitis - cont prn albuterol, singulair HTN - hold HCTZ for hypokalemia FEN - NPO after midnight PPX - lovenox FULL CODE Dispo - inpatient Justifications for Admission Other Justification MARISABEL JAY MD Oct 30, 2021 09:04
[2021-10-30] MEDS: MONTELUKAST SODIUM 10 MG TABLET. PO SCH (09:29)
[2021-10-30] MEDS: LOSARTAN POTASSIUM 50 MG TABLET. PO SCH (09:29)
[2021-10-30] MEDS: CETIRIZINE HCL 10 MG TABLET. PO SCH (09:29)
[2021-10-30] MEDS ORDERED: CIPROFLOXACIN 400MG PREMIX 200 ML IV SCH (09:30)
[2021-10-30] MEDS: FLUTICASONE 50MCG/NASAL SPRAY 16GM BOTTLE. NS SCH (09:30)
--- NOTE | 2021-10-30 10:30 | PDOC2 ---
CONSULT Date of Consult Date of Consult DATE: 10/30/21 TIME: 10:29 Reason for Consult Reason for Consult: Thickened endometrium, fibroids History of Present Illness Reason for Visit: The pt is a 71y who presented to the ER after a syncopal episode. The episode occurred during a BM. She has had N/V/D and dizziness recently. Over the course of her w/u she was found to have a Hgb of 14.2. A CT head returned nml. Due to her wt loss a CT abd/pelvis was performed revealing the following: Abdomen and pelvis CT: 1. Mid to distal colonic wall thickening with pericolonic edema, may represent infectious or inflammatory colitis. Recommend follow-up after treatment. 2. Mildly dilated bile ducts and pancreatic duct. Recommend correlation with biliary lab values. If persistent clinical concern, MRI/MRCP within without contrast can further evaluate. 3. Enlarged heterogeneous uterus with ill-defined masses, may represent fibroids. Ultrasound can further evaluate if clinically indicated. A subsequent u/s revealed the following: IMPRESSION: 1. Endometrium thickness which is abnormal in a postmenopausal female. Differential considerations include endometrial hyperplasia and carcinoma. Recommend correlation with direct visualization. 2. Heterogenous appearance of the myometrium, may relate to underlying fibroids however not well assessed on ultrasound. If necessary nonemergent/outpatient MRI of the pelvis can better evaluate. When discussing the results with the pt she recalls no bleeding issues since she was young. She denies PMB. She just recalls either having a cyst or her right ovary removed. Explained the concerns of a thickened endometrium with the pt. Explained that it is often benign, but hyperplasia and CA needed to be ruled out. Discussed methods of eval the endometrium with the pt. 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 No ERT/HRT 12yo / monthly (heavy) / 50s SH: no tob, no EtOH FH: noncontributory Current Problem List Problem List Problems Medical Problems: (1) Acute colitis Status: Acute (2) Endometrial mass Status: Acute (3) Hypokalemia Status: Acute (4) Near syncope Status: Acute Current Medications Current Medications Current Medications Labetalol HCl (Normodyne Iv Push) 10 mg 1X ONCE IVP Last administered on 10/29/21at 18:03; Start 10/29/21 at 17:30; Stop 10/29/21 at 17:35; Status DC Potassium Chloride (Klor-Con) 40 meq 1X ONCE PO Last administered on 10/29/21at 19:20; Start 10/29/21 at 19:15; Stop 10/29/21 at 19:16; Status DC Iohexol (Omnipaque 350 Mg/ml) 100 ml 1X ONCE IV Last administered on 10/29/21at 19:00; Start 10/29/21 at 18:45; Stop 10/29/21 at 18:46; Status DC Info (CONTRAST GIVEN -- Rx MONITORING) 1 each PRN DAILY PRN MC SEE COMMENTS; Start 10/29/21 at 18:45; Stop 10/31/21 at 18:44 Ondansetron HCl (Zofran) 4 mg PRN Q8HRS PRN IVP NAUSEA/VOMITING; Start 10/29/21 at 21:45; Stop 10/30/21 at 21:44 Morphine Sulfate (Morphine Sulfate) 2 mg PRN Q2HR PRN IVP PAIN; Start 10/29/21 at 21:45; Stop 10/30/21 at 21:44 Potassium Chloride/Sodium Chloride 1,000 ml @ 75 mls/hr [id number] ONCE IV Last administered on 10/29/21at 22:10; Start 10/29/21 at 22:00; Stop 10/30/21 at 11:19 Ciprofloxacin/ Dextrose 200 ml @ 200 mls/hr 1X ONCE IV Last administered on 10/29/21at 22:42; Start 10/29/21 at 21:45; Stop 10/29/21 at 22:44; Status DC Metronidazole 100 ml @ 100 mls/hr 1X ONCE IV Last administered on 10/30/21at 00:08; Start 10/29/21 at 22:00; Stop 10/29/21 at 22:59; Status DC Clonidine HCl (Catapres) 0.1 mg PRN Q8HRS PRN PO HYPERTENSION Last administered on 10/29/21at 22:51; Start 10/29/21 at 21:45 Amlodipine Besylate (Norvasc) 10 mg DAILY PO Last administered on 10/30/21at 09:29; Start 10/30/21 at 09:30 Budesonide (Pulmicort) 0.5 mg RTBID NEB ; Start 10/30/21 at 09:30 Cetirizine HCl (ZyrTEC) 10 mg DAILY PO Last administered on 10/30/21at 09:29; Start 10/30/21 at 09:30 Fluticasone Propionate (Flonase) 2 spray DAILY NS Last administered on 10/30/21at 09:30; Start 10/30/21 at 09:30 Losartan Potassium (Cozaar) 50 mg DAILY PO Last administered on 10/30/21at 09:29; Start 10/30/21 at 09:30 Montelukast Sodium (Singulair) 10 mg DAILY PO Last administered on 10/30/21at 09:29; Start 10/30/21 at 09:30 Atorvastatin Calcium (Lipitor) 10 mg QHS PO ; Start 10/30/21 at 21:00 Ciprofloxacin/ Dextrose 200 ml @ 200 mls/hr Q12HR IV Last administered on 10/30/21at 09:30; Start 10/30/21 at 09:30 Metronidazole 100 ml @ 100 mls/hr Q12HR IV ; Start 10/30/21 at 09:30 Active Scripts Active Budesonide 0.5 Mg/2 Ml Ampul.neb 0.5 Mg NEB RTBID 30 Days Fluticasone Propionate Nasal Aurora (Fluticasone Propionate) 16 Gm Aurora.susp 2 Aurora NS DAILY 30 Days Hydrochlorothiazide Tablet (Hydrochlorothiazide) 25 Mg Tablet 25 Mg PO DAILY 30 Days Cozaar (Losartan Potassium) 50 Mg Tablet 50 Mg PO DAILY 30 Days Cetirizine Hcl 10 Mg Tablet 10 Mg PO DAILY 30 Days Oxybutynin Chloride 5 Mg Tablet 1 Tab PO BID Albuterol Sulfate Neb Soln (Albuterol Sulfate) 2.5 Mg/3 Ml Vial.neb 1 Vial NEB PRN Q4HRS Reported Amlodipine Besylate 10 Mg Tablet 10 Mg PO DAILY Pravastatin Sodium 40 Mg Tablet 1 Tab PO QHS Motrin Ib (Ibuprofen) 200 Mg Tablet 400 Mg PO PRN PRN Montelukast Sodium Tablet (Montelukast Sodium) 10 Mg Tablet 10 Mg PO DAILY Allergies Allergies: Coded Allergies: No Known Drug Allergies (Unverified , 06/09/19) Physical Exam General: Alert, Oriented X3, Cooperative, No acute distress HEENT: PERRLA, Mucous membr. moist/pink Lungs: Clear to auscultation, Normal air movement Heart: Regular rate, Normal S1, Normal S2, No murmurs Abdomen: Normal bowel sounds, Soft, No tenderness, No hepatosplenomegaly, No masses Extremities: No clubbing, No cyanosis, No edema, Normal pulses, No tenderness/swelling Skin: No rashes, No breakdown Neuro: Normal gait, Normal speech, Normal tone, Sensation intact, Reflexes 2+ Psych/Mental Status: Mental status NL, Mood NL Vitals VITALS Vital Signs Date Time Temp Pulse Resp B/P (MAP) Pulse Ox O2 Delivery O2 Flow Rate FiO2 10/30/21 09:29 77 140/75 10/30/21 07:34 97.3 16 95 Room Air 97.3 Labs Labs Laboratory Tests Test 10/29/21 17:24 10/29/21 17:51 10/29/21 18:30 10/29/21 23:30 White Blood Count 11.9 x10^3/uL (4.0-11.0) Red Blood Count 4.37 x10^6/uL (3.50-5.40) Hemoglobin 14.2 g/dL (12.0-15.5) Hematocrit 41.2 % (36.0-47.0) Mean Corpuscular Volume 94 fL (79-100) Mean Corpuscular Hemoglobin 32 pg (25-35) Mean Corpuscular Hemoglobin Concent 34 g/dL (31-37) Red Cell Distribution Width 12.4 % (11.5-14.5) Platelet Count 473 x10^3/uL (140-400) Neutrophils (%) (Auto) 75 % (31-73) Lymphocytes (%) (Auto) 20 % (24-48) Monocytes (%) (Auto) 5 % (0-9) Eosinophils (%) (Auto) 0 % (0-3) Basophils (%) (Auto) 1 % (0-3) Neutrophils # (Auto) 8.9 x10^3/uL (1.8-7.7) Lymphocytes # (Auto) 2.3 x10^3/uL (1.0-4.8) Monocytes # (Auto) 0.6 x10^3/uL (0.0-1.1) Eosinophils # (Auto) 0.0 x10^3/uL (0.0-0.7) Basophils # (Auto) 0.1 x10^3/uL (0.0-0.2) Sodium Level 141 mmol/L (136-145) Potassium Level 2.8 mmol/L (3.5-5.1) Chloride Level 99 mmol/L (98-107) Carbon Dioxide Level 30 mmol/L (21-32) Anion Gap 12 (6-14) Blood Urea Nitrogen 22 mg/dL (7-20) Creatinine 1.0 mg/dL (0.6-1.0) Estimated GFR (Cockcroft-Gault) 66.3 BUN/Creatinine Ratio 22 (6-20) Glucose Level 162 mg/dL (70-99) Calcium Level 9.6 mg/dL (8.5-10.1) Magnesium Level 1.8 mg/dL (1.8-2.4) Total Bilirubin 0.3 mg/dL (0.2-1.0) Aspartate Amino Transf (AST/SGOT) 53 U/L (15-37) Alanine Aminotransferase (ALT/SGPT) 37 U/L (14-59) Alkaline Phosphatase 65 U/L (46-116) Troponin I High Sensitivity 10 ng/L (4-50) 12 ng/L (4-50) 15 ng/L (4-50) MT-Sli-O-Type Natriuretic Peptide 118 pg/mL (0-124) Total Protein 9.4 g/dL (6.4-8.2) Albumin 4.3 g/dL (3.4-5.0) Albumin/Globulin Ratio 0.8 (1.0-1.7) Influenza Type A Antigen Negative (NEGATIVE) Influenza Type B Antigen Negative (NEGATIVE) SARS-CoV-2 RNA (SOPHIA) Negative (Negative) SARS-CoV-2 Antigen (Rapid) Negative (NEGATIVE) Test 10/30/21 03:15 10/30/21 03:25 Urine Collection Type Unknown Urine Color Yellow Urine Clarity Clear Urine pH 6.0 (<5.0-8.0) Urine Specific Mead >=1.030 (1.000-1.030) Urine Protein Negative mg/dL (NEG-TRACE) Urine Glucose (UA) Negative mg/dL (NEG) Urine Ketones (Stick) Negative mg/dL (NEG) Urine Blood Negative (NEG) Urine Nitrite Negative (NEG) Urine Bilirubin Negative (NEG) Urine Urobilinogen Dipstick 0.2 mg/dL (0.2 mg/dL) Urine Leukocyte Esterase Negative (NEG) Urine RBC 0 /HPF (0-2) Urine WBC 1-4 /HPF (0-4) Urine Squamous Epithelial Cells Mod /LPF Urine Bacteria Few /HPF (0-FEW) Urine Opiates Screen Neg (NEG) Urine Methadone Screen Neg (NEG) Urine Barbiturates Neg (NEG) Urine Phencyclidine Screen Neg (NEG) Urine Amphetamine/Methamphetamine Neg (NEG) Urine Benzodiazepines Screen Neg (NEG) Urine Cocaine Screen Neg (NEG) Urine Cannabinoids Screen Neg (NEG) Urine Ethyl Alcohol Neg (NEG) White Blood Count 8.2 x10^3/uL (4.0-11.0) Red Blood Count 3.98 x10^6/uL (3.50-5.40) Hemoglobin 12.9 g/dL (12.0-15.5) Hematocrit 37.3 % (36.0-47.0) Mean Corpuscular Volume 94 fL (79-100) Mean Corpuscular Hemoglobin 32 pg (25-35) Mean Corpuscular Hemoglobin Concent 35 g/dL (31-37) Red Cell Distribution Width 12.7 % (11.5-14.5) Platelet Count 394 x10^3/uL (140-400) Neutrophils (%) (Auto) 75 % (31-73) Lymphocytes (%) (Auto) 17 % (24-48) Monocytes (%) (Auto) 7 % (0-9) Eosinophils (%) (Auto) 0 % (0-3) Basophils (%) (Auto) 0 % (0-3) Neutrophils # (Auto) 6.2 x10^3/uL (1.8-7.7) Lymphocytes # (Auto) 1.4 x10^3/uL (1.0-4.8) Monocytes # (Auto) 0.6 x10^3/uL (0.0-1.1) Eosinophils # (Auto) 0.0 x10^3/uL (0.0-0.7) Basophils # (Auto) 0.0 x10^3/uL (0.0-0.2) Sodium Level 139 mmol/L (136-145) Potassium Level 3.3 mmol/L (3.5-5.1) Chloride Level 103 mmol/L (98-107) Carbon Dioxide Level 29 mmol/L (21-32) Anion Gap 7 (6-14) Blood Urea Nitrogen 19 mg/dL (7-20) Creatinine 1.0 mg/dL (0.6-1.0) Estimated GFR (Cockcroft-Gault) 66.3 BUN/Creatinine Ratio 19 (6-20) Glucose Level 145 mg/dL (70-99) Calcium Level 8.5 mg/dL (8.5-10.1) Total Bilirubin 0.1 mg/dL (0.2-1.0) Aspartate Amino Transf (AST/SGOT) 47 U/L (15-37) Alanine Aminotransferase (ALT/SGPT) 40 U/L (14-59) Alkaline Phosphatase 53 U/L (46-116) Total Protein 6.8 g/dL (6.4-8.2) Albumin 3.3 g/dL (3.4-5.0) Albumin/Globulin Ratio 0.9 (1.0-1.7) Laboratory Tests Test 10/29/21 17:24 10/29/21 17:51 10/29/21 18:30 10/29/21 23:30 White Blood Count 11.9 x10^3/uL (4.0-11.0) Red Blood Count 4.37 x10^6/uL (3.50-5.40) Hemoglobin 14.2 g/dL (12.0-15.5) Hematocrit 41.2 % (36.0-47.0) Mean Corpuscular Volume 94 fL (79-100) Mean Corpuscular Hemoglobin 32 pg (25-35) Mean Corpuscular Hemoglobin Concent 34 g/dL (31-37) Red Cell Distribution Width 12.4 % (11.5-14.5) Platelet Count 473 x10^3/uL (140-400) Neutrophils (%) (Auto) 75 % (31-73) Lymphocytes (%) (Auto) 20 % (24-48) Monocytes (%) (Auto) 5 % (0-9) Eosinophils (%) (Auto) 0 % (0-3) Basophils (%) (Auto) 1 % (0-3) Neutrophils # (Auto) 8.9 x10^3/uL (1.8-7.7) Lymphocytes # (Auto) 2.3 x10^3/uL (1.0-4.8) Monocytes # (Auto) 0.6 x10^3/uL (0.0-1.1) Eosinophils # (Auto) 0.0 x10^3/uL (0.0-0.7) Basophils # (Auto) 0.1 x10^3/uL (0.0-0.2) Sodium Level 141 mmol/L (136-145) Potassium Level 2.8 mmol/L (3.5-5.1) Chloride Level 99 mmol/L (98-107) Carbon Dioxide Level 30 mmol/L (21-32) Anion Gap 12 (6-14) Blood Urea Nitrogen 22 mg/dL (7-20) Creatinine 1.0 mg/dL (0.6-1.0) Estimated GFR (Cockcroft-Gault) 66.3 BUN/Creatinine Ratio 22 (6-20) Glucose Level 162 mg/dL (70-99) Calcium Level 9.6 mg/dL (8.5-10.1) Magnesium Level 1.8 mg/dL (1.8-2.4) Total Bilirubin 0.3 mg/dL (0.2-1.0) Aspartate Amino Transf (AST/SGOT) 53 U/L (15-37) Alanine Aminotransferase (ALT/SGPT) 37 U/L (14-59) Alkaline Phosphatase 65 U/L (46-116) Troponin I High Sensitivity 10 ng/L (4-50) 12 ng/L (4-50) 15 ng/L (4-50) SX-Xru-F-Type Natriuretic Peptide 118 pg/mL (0-124) Total Protein 9.4 g/dL (6.4-8.2) Albumin 4.3 g/dL (3.4-5.0) Albumin/Globulin Ratio 0.8 (1.0-1.7) Influenza Type A Antigen Negative (NEGATIVE) Influenza Type B Antigen Negative (NEGATIVE) SARS-CoV-2 RNA (SOPHIA) Negative (Negative) SARS-CoV-2 Antigen (Rapid) Negative (NEGATIVE) Test 10/30/21 03:15 10/30/21 03:25 Urine Collection Type Unknown Urine Color Yellow Urine Clarity Clear Urine pH 6.0 (<5.0-8.0) Urine Specific Mead >=1.030 (1.000-1.030) Urine Protein Negative mg/dL (NEG-TRACE) Urine Glucose (UA) Negative mg/dL (NEG) Urine Ketones (Stick) Negative mg/dL (NEG) Urine Blood Negative (NEG) Urine Nitrite Negative (NEG) Urine Bilirubin Negative (NEG) Urine Urobilinogen Dipstick 0.2 mg/dL (0.2 mg/dL) Urine Leukocyte Esterase Negative (NEG) Urine RBC 0 /HPF (0-2) Urine WBC 1-4 /HPF (0-4) Urine Squamous Epithelial Cells Mod /LPF Urine Bacteria Few /HPF (0-FEW) Urine Opiates Screen Neg (NEG) Urine Methadone Screen Neg (NEG) Urine Barbiturates Neg (NEG) Urine Phencyclidine Screen Neg (NEG) Urine Amphetamine/Methamphetamine Neg (NEG) Urine Benzodiazepines Screen Neg (NEG) Urine Cocaine Screen Neg (NEG) Urine Cannabinoids Screen Neg (NEG) Urine Ethyl Alcohol Neg (NEG) White Blood Count 8.2 x10^3/uL (4.0-11.0) Red Blood Count 3.98 x10^6/uL (3.50-5.40) Hemoglobin 12.9 g/dL (12.0-15.5) Hematocrit 37.3 % (36.0-47.0) Mean Corpuscular Volume 94 fL (79-100) Mean Corpuscular Hemoglobin 32 pg (25-35) Mean Corpuscular Hemoglobin Concent 35 g/dL (31-37) Red Cell Distribution Width 12.7 % (11.5-14.5) Platelet Count 394 x10^3/uL (140-400) Neutrophils (%) (Auto) 75 % (31-73) Lymphocytes (%) (Auto) 17 % (24-48) Monocytes (%) (Auto) 7 % (0-9) Eosinophils (%) (Auto) 0 % (0-3) Basophils (%) (Auto) 0 % (0-3) Neutrophils # (Auto) 6.2 x10^3/uL (1.8-7.7) Lymphocytes # (Auto) 1.4 x10^3/uL (1.0-4.8) Monocytes # (Auto) 0.6 x10^3/uL (0.0-1.1) Eosinophils # (Auto) 0.0 x10^3/uL (0.0-0.7) Basophils # (Auto) 0.0 x10^3/uL (0.0-0.2) Sodium Level 139 mmol/L (136-145) Potassium Level 3.3 mmol/L (3.5-5.1) Chloride Level 103 mmol/L (98-107) Carbon Dioxide Level 29 mmol/L (21-32) Anion Gap 7 (6-14) Blood Urea Nitrogen 19 mg/dL (7-20) Creatinine 1.0 mg/dL (0.6-1.0) Estimated GFR (Cockcroft-Gault) 66.3 BUN/Creatinine Ratio 19 (6-20) Glucose Level 145 mg/dL (70-99) Calcium Level 8.5 mg/dL (8.5-10.1) Total Bilirubin 0.1 mg/dL (0.2-1.0) Aspartate Amino Transf (AST/SGOT) 47 U/L (15-37) Alanine Aminotransferase (ALT/SGPT) 40 U/L (14-59) Alkaline Phosphatase 53 U/L (46-116) Total Protein 6.8 g/dL (6.4-8.2) Albumin 3.3 g/dL (3.4-5.0) Albumin/Globulin Ratio 0.9 (1.0-1.7) Assessment/Plan Assessment/Plan Assessment: 71y admitted after a syncopal episode with colitis Recommendations: 1.) Thickened endometrium found to have 8 mm endometrial stripe on u/s (4 mm reassuring). The pt has no h/o PMB. Explained that she is at low risk for endometrial hyperplasia or CA and this may be artifact from fibroids, but endometrial sampling needs to be performed to ensure this is the case. H/S, D&C may the best option since she is currently being txed for her colitis. 2.) Fibroids No bleeding issues. Hgb 14.2. No intervention necessary. 3.) H/o Lap right cystectomy 4.) Menopause no h/o ERT/HRT 5.) Weight loss 6.) Syncope likely from hypovolemia, per primary team 7.) Colitis GI consulted 8.) HTN per primary team 9.) Rapid covid neg awaiting PCR 10.) Will cont to follow CHANDRAKANT CHAHAL MD Oct 30, 2021 10:30
[2021-10-30 11:00] VITALS: BP 131/71
--- NOTE | 2021-10-30 11:10 | NUR ---
SS following for discharge planning. SS reviewed pt chart and discussed with pt RN. Pt is from home with spouse and is currently on room air. Pt on IV Cipro and IV Flagyl. Gynecology consulted. PT/OT ordered. Per OT, no needs. SS will continue to follow for discharge planning. Addendum: 10/30/21 at 1114 by ROSE ROBINS SS COVID19 negative.
--- NOTE | 2021-10-30 12:10 | PDOC2 ---
GI CONSULT Date of Service: DATE: 10/30/21 TIME: 11:52 Reason For Consult: colitis HPI: HPI: Pleasant 71 y/o female admitted through ER. Ill since yesterday. Began w/ vomiting and diarrhea, then near-syncope when tried to stand from toilet. Denies precipitating events. No sick contacts or travel. Prepared/ate mac 'n cheese, hamburger, sweet potatoes, and rice on Wednesday night and eggs w/ cheese and some bread yesterday morning. Here, no recurrence of vomiting or diarrhea. Tolerated regular breakfast except eggs because they were cold. Never abdominal pain or bleeding. Labs unremarkable except glucose 162, hypokalemia, and mildly elevated AST. We are asked to see for abnormal CT findings of mid-distal colonic wall thickening. Also noted mildly dilated CBD (8mm) and PD. HEEL SEAT FLAP STAPLER has seen for thickened endometrium and fibroids. Denies chronic GI issues including heartburn/reflux, dysphagia, early satiety, change in appetite, chronic n/v or diarrhea, constipation, hematochezia, or melena. Reports good appetite. Has lost ~20 pounds in a couple months - says her noticed. Also says she "used to be big." No previous EGD or colonoscopy. No GB, liver, pancreas, or PUD history. Diverticulosis noted on imaging. Takes OTC arthritis pills - not sure the name. Getting IV Cipro and Flagyl per ER. PMH: PMH: HTN, asthma, allergic rhinitis bilateral IHR w/ mesh, right ovarian cystectomy FH: Family History: Cancer (father - lung) ROS: GEN: Denies fevers, chills, sweats HEENT: Denies blurred vision, sore throat CV: Denies chest pain RESP: Denies shortness of air, cough GI: Per HPI : Denies hematuria, dysuria ENDO: Denies weight changes NEURO: Denies confusion, dizziness MSK: Denies weakness, joint pain/swelling SKIN: Denies jaundice, pruritus Vitals: Vitals: Vital Signs Date Time Temp Pulse Resp B/P (MAP) Pulse Ox O2 Delivery O2 Flow Rate FiO2 10/30/21 11:00 96.4 97 16 131/71 (91) 100 Room Air 96.4 Labs: Labs: Laboratory Tests Test 10/29/21 17:24 10/29/21 17:51 10/29/21 18:30 10/29/21 23:30 White Blood Count 11.9 x10^3/uL (4.0-11.0) Red Blood Count 4.37 x10^6/uL (3.50-5.40) Hemoglobin 14.2 g/dL (12.0-15.5) Hematocrit 41.2 % (36.0-47.0) Mean Corpuscular Volume 94 fL (79-100) Mean Corpuscular Hemoglobin 32 pg (25-35) Mean Corpuscular Hemoglobin Concent 34 g/dL (31-37) Red Cell Distribution Width 12.4 % (11.5-14.5) Platelet Count 473 x10^3/uL (140-400) Neutrophils (%) (Auto) 75 % (31-73) Lymphocytes (%) (Auto) 20 % (24-48) Monocytes (%) (Auto) 5 % (0-9) Eosinophils (%) (Auto) 0 % (0-3) Basophils (%) (Auto) 1 % (0-3) Neutrophils # (Auto) 8.9 x10^3/uL (1.8-7.7) Lymphocytes # (Auto) 2.3 x10^3/uL (1.0-4.8) Monocytes # (Auto) 0.6 x10^3/uL (0.0-1.1) Eosinophils # (Auto) 0.0 x10^3/uL (0.0-0.7) Basophils # (Auto) 0.1 x10^3/uL (0.0-0.2) Sodium Level 141 mmol/L (136-145) Potassium Level 2.8 mmol/L (3.5-5.1) Chloride Level 99 mmol/L (98-107) Carbon Dioxide Level 30 mmol/L (21-32) Anion Gap 12 (6-14) Blood Urea Nitrogen 22 mg/dL (7-20) Creatinine 1.0 mg/dL (0.6-1.0) Estimated GFR (Cockcroft-Gault) 66.3 BUN/Creatinine Ratio 22 (6-20) Glucose Level 162 mg/dL (70-99) Calcium Level 9.6 mg/dL (8.5-10.1) Magnesium Level 1.8 mg/dL (1.8-2.4) Total Bilirubin 0.3 mg/dL (0.2-1.0) Aspartate Amino Transf (AST/SGOT) 53 U/L (15-37) Alanine Aminotransferase (ALT/SGPT) 37 U/L (14-59) Alkaline Phosphatase 65 U/L (46-116) Troponin I High Sensitivity 10 ng/L (4-50) 12 ng/L (4-50) 15 ng/L (4-50) NB-Sgm-L-Type Natriuretic Peptide 118 pg/mL (0-124) Total Protein 9.4 g/dL (6.4-8.2) Albumin 4.3 g/dL (3.4-5.0) Albumin/Globulin Ratio 0.8 (1.0-1.7) Influenza Type A Antigen Negative (NEGATIVE) Influenza Type B Antigen Negative (NEGATIVE) SARS-CoV-2 RNA (SOPHIA) Negative (Negative) SARS-CoV-2 Antigen (Rapid) Negative (NEGATIVE) Test 10/30/21 03:15 10/30/21 03:25 Urine Collection Type Unknown Urine Color Yellow Urine Clarity Clear Urine pH 6.0 (<5.0-8.0) Urine Specific [place] >=1.030 (1.000-1.030) Urine Protein Negative mg/dL (NEG-TRACE) Urine Glucose (UA) Negative mg/dL (NEG) Urine Ketones (Stick) Negative mg/dL (NEG) Urine Blood Negative (NEG) Urine Nitrite Negative (NEG) Urine Bilirubin Negative (NEG) Urine Urobilinogen Dipstick 0.2 mg/dL (0.2 mg/dL) Urine Leukocyte Esterase Negative (NEG) Urine RBC 0 /HPF (0-2) Urine WBC 1-4 /HPF (0-4) Urine Squamous Epithelial Cells Mod /LPF Urine Bacteria Few /HPF (0-FEW) Urine Opiates Screen Neg (NEG) Urine Methadone Screen Neg (NEG) Urine Barbiturates Neg (NEG) Urine Phencyclidine Screen Neg (NEG) Urine Amphetamine/Methamphetamine Neg (NEG) Urine Benzodiazepines Screen Neg (NEG) Urine Cocaine Screen Neg (NEG) Urine Cannabinoids Screen Neg (NEG) Urine Ethyl Alcohol Neg (NEG) White Blood Count 8.2 x10^3/uL (4.0-11.0) Red Blood Count 3.98 x10^6/uL (3.50-5.40) Hemoglobin 12.9 g/dL (12.0-15.5) Hematocrit 37.3 % (36.0-47.0) Mean Corpuscular Volume 94 fL (79-100) Mean Corpuscular Hemoglobin 32 pg (25-35) Mean Corpuscular Hemoglobin Concent 35 g/dL (31-37) Red Cell Distribution Width 12.7 % (11.5-14.5) Platelet Count 394 x10^3/uL (140-400) Neutrophils (%) (Auto) 75 % (31-73) Lymphocytes (%) (Auto) 17 % (24-48) Monocytes (%) (Auto) 7 % (0-9) Eosinophils (%) (Auto) 0 % (0-3) Basophils (%) (Auto) 0 % (0-3) Neutrophils # (Auto) 6.2 x10^3/uL (1.8-7.7) Lymphocytes # (Auto) 1.4 x10^3/uL (1.0-4.8) Monocytes # (Auto) 0.6 x10^3/uL (0.0-1.1) Eosinophils # (Auto) 0.0 x10^3/uL (0.0-0.7) Basophils # (Auto) 0.0 x10^3/uL (0.0-0.2) Sodium Level 139 mmol/L (136-145) Potassium Level 3.3 mmol/L (3.5-5.1) Chloride Level 103 mmol/L (98-107) Carbon Dioxide Level 29 mmol/L (21-32) Anion Gap 7 (6-14) Blood Urea Nitrogen 19 mg/dL (7-20) Creatinine 1.0 mg/dL (0.6-1.0) Estimated GFR (Cockcroft-Gault) 66.3 BUN/Creatinine Ratio 19 (6-20) Glucose Level 145 mg/dL (70-99) Calcium Level 8.5 mg/dL (8.5-10.1) Total Bilirubin 0.1 mg/dL (0.2-1.0) Aspartate Amino Transf (AST/SGOT) 47 U/L (15-37) Alanine Aminotransferase (ALT/SGPT) 40 U/L (14-59) Alkaline Phosphatase 53 U/L (46-116) Total Protein 6.8 g/dL (6.4-8.2) Albumin 3.3 g/dL (3.4-5.0) Albumin/Globulin Ratio 0.9 (1.0-1.7) Allergies: Coded Allergies: No Known Drug Allergies (Unverified , 06/09/19) Medications: Current Medications Medications (Trade) Dose Ordered Sig/Ganesh Route PRN Reason Start Time Stop Time Status Last Admin Dose Admin Labetalol HCl (Normodyne Iv Push) 10 mg 1X ONCE IVP 10/29/21 17:30 10/29/21 17:35 DC 10/29/21 18:03 Potassium Chloride (Klor-Con) 40 meq 1X ONCE PO 10/29/21 19:15 10/29/21 19:16 DC 10/29/21 19:20 Iohexol (Omnipaque 350 Mg/ml) 100 ml 1X ONCE IV 10/29/21 18:45 10/29/21 18:46 DC 10/29/21 19:00 Potassium Chloride/Sodium Chloride 1,000 ml @ 75 mls/hr [id number] ONCE IV 10/29/21 22:00 10/30/21 11:19 DC 10/29/21 22:10 Ciprofloxacin/ Dextrose 200 ml @ 200 mls/hr 1X ONCE IV 10/29/21 21:45 10/29/21 22:44 DC 10/29/21 22:42 Metronidazole 100 ml @ 100 mls/hr 1X ONCE IV 10/29/21 22:00 10/29/21 22:59 DC 10/30/21 00:08 Clonidine HCl (Catapres) 0.1 mg PRN Q8HRS PRN PO HYPERTENSION 10/29/21 21:45 10/29/21 22:51 Amlodipine Besylate (Norvasc) 10 mg DAILY PO 10/30/21 09:30 10/30/21 09:29 Cetirizine HCl (ZyrTEC) 10 mg DAILY PO 10/30/21 09:30 10/30/21 09:29 Fluticasone Propionate (Flonase) 2 spray DAILY NS 10/30/21 09:30 10/30/21 09:30 Losartan Potassium (Cozaar) 50 mg DAILY PO 10/30/21 09:30 10/30/21 09:29 Montelukast Sodium (Singulair) 10 mg DAILY PO 10/30/21 09:30 10/30/21 09:29 Ciprofloxacin/ Dextrose 200 ml @ 200 mls/hr Q12HR IV 10/30/21 09:30 10/30/21 09:30 Metronidazole 100 ml @ 100 mls/hr Q12HR IV 10/30/21 09:30 10/30/21 11:05 Imaging: Imaging: CXR Impression: 1. No acute cardiopulmonary process. C/A/P CT Impression: Chest CT: 1. No acute thoracic pathology. No pulmonary bolus. Abdomen and pelvis CT: 1. Mid to distal colonic wall thickening with pericolonic edema, may represent infectious or inflammatory colitis. Recommend follow-up after treatment. 2. Mildly dilated bile ducts and pancreatic duct. Recommend correlation with biliary lab values. If persistent clinical concern, MRI/MRCP within without contrast can further evaluate. 3. Enlarged heterogeneous uterus with ill-defined masses, may represent fibroids. Ultrasound can further evaluate if clinically indicated. Head CT IMPRESSION: No acute intracranial CT abnormality. Incidental findings as described above. A/P/TV US IMPRESSION: 1. Endometrium thickness which is abnormal in a postmenopausal female. Differential considerations include endometrial hyperplasia and carcinoma. Recommend correlation with direct visualization. 2. Heterogenous appearance of the myometrium, may relate to underlying fibroids however not well assessed on ultrasound. If necessary nonemergent/outpatient MRI of the pelvis can better evaluate. PE: GEN: NAD, thin HEENT: Atraumatic, PERRL, poor dentition LUNGS: CTAB HEART: RRR ABD: NABS, S/ND/NT EXTREMITY: No edema SKIN: No rashes, no jaundice NEURO/PSYCH: A & O 3 A/P: A/P: Vomiting and diarrhea, near syncope - resolved Hypokalemia - better Weight loss Abnormal A/P imaging - mid to distal colonic wall thickening with pericolonic edema, mildly dilated bile ducts and pancreatic duct, thickened endometrium and fibroids CRC screen - none Diverticulosis COVID negative -- Quick resolution of symptoms. Will review CT and need for atbx w/ Dr. Ayon. Discussed outpt colonoscopy - pt agreeable. KIMBERLY RODRIGUEZ Oct 30, 2021 12:10
[2021-10-30 15:00] VITALS: BP 125/68
[2021-10-30 19:15] VITALS: BP 149/68
[2021-10-30] MEDS: BUDESONIDE 0.5 MG/2 ML NEBU. NEB SCH (21:15)
[2021-10-30] MEDS: LACTOBACILLUS RHAMNOSUS GG 1 CAPSULE. PO SCH (21:55)
[2021-10-30] MEDS: ATORVASTATIN CALCIUM 10 MG TABLET. PO SCH (21:55)
[2021-10-30 22:28] VITALS: BP 147/76
[2021-10-31 03:14] VITALS: BP 155/83
[2021-10-31] MEDS ORDERED: MORPHINE SULFATE 2 MG/ML INJ. IVP PRN (06:00)
[2021-10-31] MEDS ORDERED: fentaNYL PF VIAL 100 MCG/2 ML VIAL IVP PRN (06:00)
[2021-10-31] MEDS ORDERED: PROCHLORPERAZINE 10 MG/2 ML VIAL. IVP PRN (06:00)
[2021-10-31] MEDS ORDERED: HYDROmorphone 2 MG/ML INJ. IVP PRN (06:00)
[2021-10-31] MEDS ORDERED: IV RINGERS,LACTATED 1000ML 1,000 ML IV SCH (06:00)
[2021-10-31 06:13] LABS: ALBUMIN/GLOBULIN RATIO 0.8 (1.0-1.7); CALCIUM 8.2 mg/dL (8.5-10.1); GFR 66.3; POTASSIUM 3.4 mmol/L (3.5-5.1); TOTAL BILIRUBIN 0.2 mg/dL (0.2-1.0); TOTAL PROTEIN 6.8 g/dL (6.4-8.2)
[2021-10-31] MEDS: BUDESONIDE 0.5 MG/2 ML NEBU. NEB SCH ×2 (06:21→21:01)
[2021-10-31 07:00] VITALS: BP 198/94
[2021-10-31] MEDS: MONTELUKAST SODIUM 10 MG TABLET. PO SCH (08:18)
[2021-10-31] MEDS: LOSARTAN POTASSIUM 50 MG TABLET. PO SCH (08:18)
[2021-10-31] MEDS ORDERED: fentaNYL PF VIAL 100 MCG/2 ML VIAL ONE (08:18)
[2021-10-31] MEDS: LACTOBACILLUS RHAMNOSUS GG 1 CAPSULE. PO SCH ×2 (08:18→21:20)
[2021-10-31] MEDS: CETIRIZINE HCL 10 MG TABLET. PO SCH (08:18)
[2021-10-31] MEDS ORDERED: ONDANSETRON PF 4 MG/2 ML VIAL. ONE (08:49)
[2021-10-31] MEDS ORDERED: PROPOFOL 10 MG/ML (20ML) VIAL. IV ONE (08:49)
[2021-10-31] MEDS ORDERED: DEXAMETHASONE SOD PHOS 4 MG/ML VIAL ONE (08:49)
[2021-10-31] MEDS ORDERED: LIDOCAINE 2% PF 5 ML VIAL. ONE (08:49)
[2021-10-31] MEDS ORDERED: ePHEDrine PF IN SALINE 50 MG/10 ML SYRINGE. IV ONE (09:23)
--- NOTE | 2021-10-31 09:58 | PDOC4 ---
OPERATIVE NOTE: PreOp Dx: 1.) Thickened endometrium, 2.) Fibroids, 3.) H/o Lap right cystectomy, 4.) Menopause, 5.) Weight loss PostOp Dx: same Procedure: H/S, Myosure, D&C Surgeon: Tari Chahal Anesthesia: GETA EBL: 10 cc Fluids: 400 cc UOP: 25 cc Findings: small fibroid Complications: none Path: fibroid and endometrial curetting CHANDRAKANT CHAHAL MD Oct 31, 2021 09:58
--- NOTE | 2021-10-31 10:10 | PDOC ---
[employer] PROGRESS NOTE Date of Service DOS: DATE: 10/31/21 TIME: 10:09 Chief Complaint Chief Complaint A/P: Presyncope - likely vasovagal due to dehydration, gastroenteritis. No cardiac abnormalities, no PE. Will hydrate, work with PT Colitis - gastroenteritis - likely limited toxigenic food poisoning. Will consult with GI and likely taper antibiotics quickly, patient symptomatically already improving Vomiting - likely self limited gastroenteritis Hypokalemia - replace, check mag Weight loss - abnormal unintentional, concerning. Needs outpatient colonoscopy. D/w reel slitter urgently assessing to r/o endometrial pathology would be prudent as well Abnormal abdominal CT - mid to distal colonic wall thickening with pericolonic edema, mildly dilated bile ducts and pancreatic duct. May need outpatient MRCP. GI consulted Thickened endometrium and fibroids - as above, d/w reel slitter endometrial biopsy indicated. No post-menopausal bleeding noted per patient Asthma - with allergic rhinitis - cont prn albuterol, singulair HTN - hold HCTZ for hypokalemia FEN - NPO after midnight PPX - lovenox FULL CODE Dispo - inpatient History of Present Illness History of Present Illness Ms Gray is a 71 yo female w/ PMHx HTN, asthma, allergic rhinitis who comes to ED on 10/29/21 c/o dizziness and weakness, near syncope trying to get off the toilet She became nauseated around [id number] on 10/29/21 and later in the day had vomiting and diarrhea. No pets or recent sick contacts. She notes for breakfast on 10/29 she had eggs and cheese with toast, her also ate this. On 10/28 for dinner had macaroni and cheese, hamburger, sweet potatoes, and rice and her also ate the same meal, did not become ill. Over the last 2 months notes weight loss unintentionally possibly 20 pounds, though no change in appetite or PO intake. No prior EGD or colonoscopy. WBC 11.9, Hb 14.2, platelets 473, NA 141, K2.8, BUN 22, CR 1, glucose 162, calcium 9.6, magnesium 1.8, bilirubin 0.3, AST 53, ALT 37, alkaline phosphatase 65, albumin 4.3, NT proBNP 118, high-sensitivity troponins are 10, 12, 15, urine drug screen negative, urinalysis bland, rapid influenza and rapid COVID-19 both negative. EKG with prolonged QT otherwise sinus, no ST changes or TWI CT head negative for intracranial pathology. CXR negative for abnormality. CT chest negative. CT findings of mid-distal colonic wall thickening with mildly dilated CBD (8mm) and PD. Also notable for enlarged heterogeneous uterus with ill-defined masses confirmed with pelvic ultrasound revealing thickened endometrium and fibroids. Admitted for further care. Given cipro and flagyl 10/31: Feeling better. No further diarrhea little lightheaded and weak. N.p.o. for hysteroscopy today. She feels like she could use some rehabilitation prior to leaving the hospital due to her weakness. Potassium 3.4 today. Vitals/I&O Vitals/I&O: Vital Signs Date Time Temp Pulse Resp B/P (MAP) Pulse Ox O2 Delivery O2 Flow Rate FiO2 10/31/21 09:58 93 20 162/68 100 Simple Mask 10 10/31/21 09:43 98.5 98.5 I & O 10/30/21 10/30/21 10/31/21 15:00 23:00 07:00 Intake Total 150 ml 420 ml Output Total 400 ml Balance -250 ml 420 ml Physical Exam General: Alert, Oriented X3, Cooperative, No acute distress Heart: Regular rate, Normal S1, Normal S2, No murmurs Abdomen: Normal bowel sounds, Soft, No hepatosplenomegaly, No masses, Other (epigastric tenderness) Extremities: No clubbing, No cyanosis, No edema, Normal pulses, No tenderness/swelling Skin: No rashes, No breakdown, No significant lesion Labs Labs: Laboratory Tests Test 10/31/21 04:30 Sodium Level 145 mmol/L (136-145) Potassium Level 3.4 mmol/L (3.5-5.1) Chloride Level 109 mmol/L (98-107) Carbon Dioxide Level 27 mmol/L (21-32) Anion Gap 9 (6-14) Blood Urea Nitrogen 19 mg/dL (7-20) Creatinine 1.0 mg/dL (0.6-1.0) Estimated GFR (Cockcroft-Gault) 66.3 BUN/Creatinine Ratio 19 (6-20) Glucose Level 102 mg/dL (70-99) Calcium Level 8.2 mg/dL (8.5-10.1) Total Bilirubin 0.2 mg/dL (0.2-1.0) Aspartate Amino Transf (AST/SGOT) 29 U/L (15-37) Alanine Aminotransferase (ALT/SGPT) 33 U/L (14-59) Alkaline Phosphatase 44 U/L (46-116) Total Protein 6.8 g/dL (6.4-8.2) Albumin 3.0 g/dL (3.4-5.0) Albumin/Globulin Ratio 0.8 (1.0-1.7) Assessment and Plan Assessmemt and Plan Problems Medical Problems: (1) Acute colitis Status: Acute (2) Endometrial mass Status: Acute (3) Hypokalemia Status: Acute (4) Near syncope Status: Acute Comment Review of Relevant I have reviewed the following items edyta (where applicable) has been applied. Medications: Current Medications Medications (Trade) Dose Ordered Sig/Ganesh Route PRN Reason Start Time Stop Time Status Last Admin Dose Admin Atorvastatin Calcium (Lipitor) 10 mg QHS PO 10/30/21 21:00 10/30/21 21:55 Lactobacillus Rhamnosus (Culturelle) 1 cap BID PO 10/30/21 21:00 10/31/21 08:18 Ringer's Solution 1,000 ml @ 30 mls/hr Q24H IV 10/31/21 06:00 10/31/21 17:59 10/31/21 05:57 Justifications for Admission Other Justification MARISABEL JAY MD Oct 31, 2021 10:10
--- NOTE | 2021-10-31 10:28 | OP ---
DATE OF SURGERY: 10/31/2021 PREOPERATIVE DIAGNOSES: 1. Thickened endometrium. 2. Fibroids. 3. History of laparoscopic right cystectomy. 4. Menopause. 5. Weight loss. POSTOPERATIVE DIAGNOSES: 1. Thickened endometrium. 2. Fibroids. 3. History of laparoscopic right cystectomy. 4. Menopause. 5. Weight loss. PROCEDURE: Hysteroscopy, MyoSure and dilation and curettage. SURGEON: Daron Knott MD. ANESTHESIA: General endotracheal intubation. ESTIMATED BLOOD LOSS: 10 mL. FLUIDS: 400 mL. URINE OUTPUT: 25 mL. FINDINGS: Small fibroid. COMPLICATIONS: None. PATHOLOGY: Fibroids and endometrial curetting. DESCRIPTION OF PROCEDURE: The patient was taken to the operating room where LMA was placed without difficulty. The patient was prepped and draped in normal sterile fashion. Speculum was placed in the patient's vagina to visualize the cervix. A single tooth tenaculum was then placed on the anterior lip of the cervix. The cervix was dilated to allow for hysteroscope to be placed. Once the hysteroscope was placed in the endometrial cavity, the endometrium appeared atrophic. There was a small fibroid at 12 o'clock in the endometrial cavity just upon entry. This was then shaved down with the MyoSure device. Once this was completed, a curettage was performed. Once the curettage was performed in all quadrants, the procedure was terminated. The tenaculum was removed with minimal bleeding at the tenaculum site. Good hemostasis was noted. The patient was then taken to recovery room in stable condition. MARY DR: Ian TID: [id number]
[2021-10-31] MEDS ORDERED: IBUPROFEN 400 MG TABLET. PO PRN (11:00)
[2021-10-31] MEDS ORDERED: oxyCODONE/APAP 5/325 1 TAB TABLET PO PRN (11:00)
--- NOTE | 2021-10-31 11:05 | NUR ---
SS following up with discharge planning. SS reviewed pt chart and discussed with pt RN. Pt is currently on room air. COVID19 negative. GI and Gynecology following. Dilaudid. Pt had surgery for gynecology procedure today. No PT/OT needs. Discharge plan is currently to home when medically ready for discharge. SS will continue to follow for discharge planning.
--- NOTE | 2021-10-31 11:10 | PDOC ---
Date of Service: DATE: 10/31/21 TIME: 11:07 Objective: Objective: No GI concerns per nurse. Vital Signs: Vital Signs Date Time Temp Pulse Resp B/P (MAP) Pulse Ox O2 Delivery O2 Flow Rate FiO2 10/31/21 10:43 102 20 167/75 98 Room Air 10/31/21 09:58 10 10/31/21 09:43 98.5 98.5 Labs: Laboratory Tests Test 10/31/21 04:30 Sodium Level 145 mmol/L Potassium Level 3.4 mmol/L Chloride Level 109 mmol/L Carbon Dioxide Level 27 mmol/L Anion Gap 9 Blood Urea Nitrogen 19 mg/dL Creatinine 1.0 mg/dL Estimated GFR (Cockcroft-Gault) 66.3 BUN/Creatinine Ratio 19 Glucose Level 102 mg/dL Calcium Level 8.2 mg/dL Total Bilirubin 0.2 mg/dL Aspartate Amino Transf (AST/SGOT) 29 U/L Alanine Aminotransferase (ALT/SGPT) 33 U/L Alkaline Phosphatase 44 U/L Total Protein 6.8 g/dL Albumin 3.0 g/dL Albumin/Globulin Ratio 0.8 PE: out of room A/P: Vomiting and diarrhea - quick resolution S/p hysteroscopy Weight loss Abnormal CT - mid to distal colonic wall thickening with pericolonic edema, mildly dilated bile ducts and pancreatic duct CRC screen - none COVID negative -- Out of room for LAPEL PADDER BLINDSTITCH procedure. CA19-9 pending. Plan for outpt colonoscopy +/- MRCP. Justicifation of Admission Dx: Justifications for Admission: Justification of Admission Dx: Yes KIMBERLY RODRIGUEZ Oct 31, 2021 11:10
[2021-10-31 11:19] VITALS: BP 173/82
[2021-10-31] MEDS: cloNIDine HCL 0.1 MG TABLET PO PRN (12:00)
[2021-10-31] MEDS: FLUTICASONE 50MCG/NASAL SPRAY 16GM BOTTLE. NS SCH (12:00)
[2021-10-31 15:00] VITALS: BP 115/63
[2021-10-31 19:08] VITALS: BP 148/71
[2021-10-31] MEDS: ATORVASTATIN CALCIUM 10 MG TABLET. PO SCH (21:20)
[2021-10-31 22:48] VITALS: BP 151/70
[2021-11-01 03:23] VITALS: BP 134/69
[2021-11-01 07:00] VITALS: BP 174/83
[2021-11-01] MEDS: BUDESONIDE 0.5 MG/2 ML NEBU. NEB SCH (07:24)
[2021-11-01] MEDS: CETIRIZINE HCL 10 MG TABLET. PO SCH (08:18)
[2021-11-01] MEDS: LACTOBACILLUS RHAMNOSUS GG 1 CAPSULE. PO SCH (08:18)
[2021-11-01] MEDS: FLUTICASONE 50MCG/NASAL SPRAY 16GM BOTTLE. NS SCH (08:18)
[2021-11-01] MEDS: MONTELUKAST SODIUM 10 MG TABLET. PO SCH (08:18)
[2021-11-01] MEDS: LOSARTAN POTASSIUM 50 MG TABLET. PO SCH (08:19)
--- NOTE | 2021-11-01 10:06 | PDOC ---
[employer] [facility] PROGRESS NOTE Date of Service DOS: DATE: 11/01/21 TIME: 10:04 Chief Complaint Chief Complaint A/P: Presyncope - likely vasovagal due to dehydration, gastroenteritis. No cardiac abnormalities, no PE. Will hydrate, work with PT Colitis - gastroenteritis - likely limited toxigenic food poisoning. Will consult with GI and likely taper antibiotics quickly, patient symptomatically already improving Vomiting - likely self limited gastroenteritis Hypokalemia - replace, check mag Weight loss - abnormal unintentional, concerning. Needs outpatient colonoscopy. D/w cancer program coordinator urgently assessing to r/o endometrial pathology would be prudent as well Abnormal abdominal CT - mid to distal colonic wall thickening with pericolonic edema, mildly dilated bile ducts and pancreatic duct. May need outpatient MRCP. GI consulted Thickened endometrium and fibroids - as above, d/w cancer program coordinator endometrial biopsy indicated. No post-menopausal bleeding noted per patient Asthma - with allergic rhinitis - cont prn albuterol, singulair HTN - hold HCTZ for hypokalemia FEN - NPO after midnight PPX - lovenox FULL CODE Dispo - inpatient History of Present Illness History of Present Illness Ms Gray is a 71 yo female w/ PMHx HTN, asthma, allergic rhinitis who comes to ED on 10/29/21 c/o dizziness and weakness, near syncope trying to get off the toilet She became nauseated around [id number] on 10/29/21 and later in the day had vomiting and diarrhea. No pets or recent sick contacts. She notes for breakfast on 10/29 she had eggs and cheese with toast, her also ate this. On 10/28 for dinner had macaroni and cheese, hamburger, sweet potatoes, and rice and her also ate the same meal, did not become ill. Over the last 2 months notes weight loss unintentionally possibly 20 pounds, though no change in appetite or PO intake. No prior EGD or colonoscopy. WBC 11.9, Hb 14.2, platelets 473, NA 141, K2.8, BUN 22, CR 1, glucose 162, calcium 9.6, magnesium 1.8, bilirubin 0.3, AST 53, ALT 37, alkaline phosphatase 65, albumin 4.3, NT proBNP 118, high-sensitivity troponins are 10, 12, 15, urine drug screen negative, urinalysis bland, rapid influenza and rapid COVID-19 both negative. EKG with prolonged QT otherwise sinus, no ST changes or TWI CT head negative for intracranial pathology. CXR negative for abnormality. CT chest negative. CT findings of mid-distal colonic wall thickening with mildly dilated CBD (8mm) and PD. Also notable for enlarged heterogeneous uterus with ill-defined masses confirmed with pelvic ultrasound revealing thickened endometrium and fibroids. Admitted for further care. Given cipro and flagyl 10/31: Feeling better. No further diarrhea little lightheaded and weak. Hysteroscopy with atrophic uterus, pathology sent for Fibroids and endometrial curetting. K 3.4 11/01: CA19-9 is 39. Plan for outpt colonoscopy +/- MRCP. No further diarrhea. Some periumbilical abdominal pain otherwise she feels strong enough to go home. Labs pending Vitals/I&O Vitals/I&O: Vital Signs Date Time Temp Pulse Resp B/P (MAP) Pulse Ox O2 Delivery O2 Flow Rate FiO2 11/01/21 08:19 76 174/83 11/01/21 08:00 Room Air 11/01/21 07:24 98 11/01/21 07:00 97.6 16 97.6 10/31/21 09:58 10 I & O 10/31/21 10/31/21 11/01/21 15:00 23:00 07:00 Intake Total 860 ml 560 ml 120 ml Output Total 45 ml Balance 815 ml 560 ml 120 ml Physical Exam General: Alert, Oriented X3, Cooperative, No acute distress Heart: Regular rate, Normal S1, Normal S2, No murmurs Abdomen: Normal bowel sounds, Soft, No hepatosplenomegaly, No masses, Other (epigastric tenderness) Extremities: No clubbing, No cyanosis, No edema, Normal pulses, No tenderness/swelling Skin: No rashes, No breakdown, No significant lesion Assessment and Plan Assessmemt and Plan Problems Medical Problems: (1) Acute colitis Status: Acute (2) Endometrial mass Status: Acute (3) Hypokalemia Status: Acute (4) Near syncope Status: Acute Comment Review of Relevant I have reviewed the following items edyta (where applicable) has been applied. Medications: Current Medications Medications (Trade) Dose Ordered Sig/Ganesh Route PRN Reason Start Time Stop Time Status Last Admin Dose Admin Ibuprofen (Motrin) 800 mg PRN Q8HRS PRN PO INFLAMMATION 10/31/21 11:00 10/31/21 21:21 Justifications for Admission Other Justification MARISABEL JAY MD Nov 01, 2021 10:06
[2021-11-01 10:33] VITALS: BP 159/77
[2021-11-01 11:23] LABS: CALCIUM 8.6 mg/dL (8.5-10.1); CREATININE 0.7 mg/dL (0.6-1.0); GFR 100.1; POTASSIUM 3.7 mmol/L (3.5-5.1)
--- NOTE | 2021-11-01 13:22 | PDOC3 ---
Discharge Summary Visit Information Final Diagnosis Problems Medical Problems: (1) Acute colitis Status: Acute (2) Endometrial mass Status: Acute (3) Hypokalemia Status: Acute (4) Near syncope Status: Acute Brief Hospital Course Allergies Allergies Coded Allergies Type Severity Reaction Last Updated Verified No Known Drug Allergies 06/09/19 No Vital Signs Vital Signs Date Time Temp Pulse Resp B/P (MAP) Pulse Ox O2 Delivery O2 Flow Rate FiO2 11/01/21 10:33 98.1 93 18 159/77 (104) 98 Room Air 98.1 10/31/21 09:58 10 Lab Results Laboratory Tests Test 10/31/21 04:30 11/01/21 10:45 Sodium Level 145 mmol/L (136-145) 144 mmol/L (136-145) Potassium Level 3.4 mmol/L (3.5-5.1) 3.7 mmol/L (3.5-5.1) Chloride Level 109 mmol/L (98-107) 107 mmol/L (98-107) Carbon Dioxide Level 27 mmol/L (21-32) 30 mmol/L (21-32) Anion Gap 9 (6-14) 7 (6-14) Blood Urea Nitrogen 19 mg/dL (7-20) 19 mg/dL (7-20) Creatinine 1.0 mg/dL (0.6-1.0) 0.7 mg/dL (0.6-1.0) Estimated GFR (Cockcroft-Gault) 66.3 100.1 BUN/Creatinine Ratio 19 (6-20) Glucose Level 102 mg/dL (70-99) 117 mg/dL (70-99) Calcium Level 8.2 mg/dL (8.5-10.1) 8.6 mg/dL (8.5-10.1) Total Bilirubin 0.2 mg/dL (0.2-1.0) Aspartate Amino Transf (AST/SGOT) 29 U/L (15-37) Alanine Aminotransferase (ALT/SGPT) 33 U/L (14-59) Alkaline Phosphatase 44 U/L (46-116) Total Protein 6.8 g/dL (6.4-8.2) Albumin 3.0 g/dL (3.4-5.0) Albumin/Globulin Ratio 0.8 (1.0-1.7) Laboratory Tests Test 11/01/21 10:45 Sodium Level 144 mmol/L (136-145) Potassium Level 3.7 mmol/L (3.5-5.1) Chloride Level 107 mmol/L (98-107) Carbon Dioxide Level 30 mmol/L (21-32) Anion Gap 7 (6-14) Blood Urea Nitrogen 19 mg/dL (7-20) Creatinine 0.7 mg/dL (0.6-1.0) Estimated GFR (Cockcroft-Gault) 100.1 Glucose Level 117 mg/dL (70-99) Calcium Level 8.6 mg/dL (8.5-10.1) Brief Hospital Course Ms. Gray is a 71 old [sex] who presented with [ ] Discharge Information Scheduled Albuterol Sulfate (Albuterol Sulfate Neb Soln) 2.5 Mg/3 Ml Vial.neb, 1 VIAL NEB PRN Q4HRS, #50 Prescribed by: ADDY DAVE APRN on 04/23/18 1257 Amlodipine Besylate (Amlodipine Besylate) 10 Mg Tablet, 10 MG PO DAILY for HTN, (Reported) Entered as Reported by: RAUL GONZALEZ on 06/09/19 0653 Last Action: Continued on 10/30/21903 by MARISABEL JAY MD Budesonide (Budesonide) 0.5 Mg/2 Ml Ampul.neb, 0.5 MG NEB RTBID for asthma for 30 Days, #60 Prescribed by: SHASHA CASAS MD on 02/04/19 155 Last Action: Continued on 10/30/21903 by MARISABEL JAY MD Cetirizine Hcl (Cetirizine Hcl) 10 Mg Tablet, 10 MG PO DAILY for runny nose, all ergies for 30 Days, #30 Prescribed by: SHASHA CASAS MD on 02/04/191549 Last Action: Continued on 10/30/21903 by MARISABEL JAY MD Fluticasone Propionate (Fluticasone Propionate Nasal [place]) 16 Gm [place].susp, 2 SPRAY NS DAILY for allergies for 30 Days, #1 Prescribed by: SHASHA CASAS MD on 02/04/19 155 Last Action: Continued on 10/30/21903 by MARISABEL JAY MD Losartan Potassium (Cozaar ) 50 Mg Tablet, 50 MG PO DAILY for bp for 30 Days, #30 Prescribed by: SHASHA CASAS MD on 02/04/191549 Last Action: Continued on 10/30/21903 by MARISABEL JAY MD Montelukast Sodium (Montelukast Sodium Tablet ) 10 Mg Tablet, 10 MG PO DAILY for FOR ASTHMA, Ref 0 (Reported) Entered as Reported by: ALFONSO BAKER on 06/08/19 1304 Last Action: Continued on 10/30/21903 by MARISABEL JAY MD Oxybutynin Chloride (Oxybutynin Chloride) 5 Mg Tablet, 1 TAB PO BID, #60 Ref 0 Prescribed by: SAMMI WASHINGTON MD on 09/11/18 1331 Pravastatin Sodium (Pravastatin Sodium) 40 Mg Tablet, 1 TAB PO QHS for NA, #90 Ref 1 (Reported) Entered as Reported by: RAUL GONZALEZ on 06/09/19 0653 Last Action: Converted on 10/30/21903 by MARISABEL JAY MD Scheduled PRN Ibuprofen (Motrin Ib) 200 Mg Tablet, 400 MG PO PRN PRN for ARTHRITIS, (Reported) Entered as Reported by: ALFONSO BAKER on 06/08/19 1306 Last Action: HELD on 10/30/21902 by MARISABEL JAY MD Discontinued Medications Hydrochlorothiazide (Hydrochlorothiazide Tablet ) 25 Mg Tablet, 25 MG PO DAILY for bp for 30 Days, #30 Prescribed by: SHASHA CASAS MD on 02/04/19 671 Last Action: HELD on 10/30/21902 by MARISABEL JAY MD Justicifation of Admission Dx: Justifications for Admission: Justification of Admission Dx: Yes MARISABEL JAY MD Nov 01, 2021 13:21
--- NOTE | 2021-11-01 14:50 | NUR ---
Discharge Note: YELENA NESS [facility] Discharge instructions and discharge home medications reviewed with Patient and a copy given. All questions have been answered and understanding verbalized. The following instructions and handouts were given: hysteroscopy, syncope, dilation and cutterage Patient discharged to home with self care via home.
--- NOTE | 2021-11-03 17:14 | PATHOLOGY ---
[facility] Accession Number: [id number] . 01 Material submitted: . endometrium - MYOSURE, ENDOMETRIAL CURETTINGS . 01 Clinical history: . MENORRHAGIA HYSTEROSCOPY, MYOSURE, D/C . 02 Diagnosis: Endometrial curettings: - Atrophic endometrium. - Fragments of myometrial tissue consistent with submucosal leiomyoma. (JPM:fay; 11/03/2021) S 11/03/2021 1349 Local . 02 Comment: There is no atypia or evidence of malignancy. (JPM:fay; 11/03/2021) . 02 Electronically signed: . Jose Acuna MD, Pathologist NPI- [id number] . 01 Gross description: . Received in formalin labeled "Sydnie Gray, myosure, endometrial curettings" is a 2.1 x 1.5 x 0.1 cm aggregate of ojeda-brown friable soft tissue fragments. The specimen is submitted entirely in A1. ([facility]; 11/01/2021) [facility] 11/01/2021 1003 Local . 02 Pathologist provided ICD-10: N85.8 . 02 CPT . 791776 Specimen Comment: A courtesy copy of this report has been sent to [phone], [phone] Specimen Comment: [id number], Specimen Comment: Report sent to , DR VO / DR GRESHAM Specimen Comment: A duplicate report has been generated due to demographic updates. Performed at: 01 [facility] [address], [place], [place] [id number] MD Elmer Matamoros MD Phone: [phone] Performed at: 02 [facility] [address] [place], [place] [id number] MD Jose Acuna MD Phone: [phone]
== END 2021-11-01 14:50 | disposition home or self-care (01) | DRG 745 ==
LOC: ER 17:01 → 6 SOUTH 20:56
PROVIDERS: ADMIT Internal Medicine; ATTEND Internal Medicine
PROC: 0UDB8ZZ Extraction of Endometrium, Via Natural or Artificial Opening Endoscopic (ICD-10-PCS; principal; 2021-10-31 09:30)
DX: D25.9 Leiomyoma of uterus, unspecified (principal); K57.30 Diverticulosis of large intestine without perforation or abscess without bleeding; A05.9 Bacterial foodborne intoxication, unspecified; E86.0 Dehydration; E87.6 Hypokalemia; I10 Essential (primary) hypertension; I25.10 Atherosclerotic heart disease of native coronary artery without angina pectoris; J45.909 Unspecified asthma, uncomplicated; K83.8 Other specified diseases of biliary tract; K86.89 Other specified diseases of pancreas; M47.816 Spondylosis without myelopathy or radiculopathy, lumbar region; R93.89 Abnormal findings on diagnostic imaging of other specified body structures; Z20.822 Contact with and (suspected) exposure to COVID-19; Z79.51 Long term (current) use of inhaled steroids; Z79.899 Other long term (current) drug therapy; Z80.1 Family history of malignant neoplasm of trachea, bronchus and lung; Z90.721 Acquired absence of ovaries, unilateral; Z78.0 Asymptomatic menopausal state
CPT/HCPCS: 36415; 70450; 71045; 71275; 74177; 76856; 80048; 80053; 80307; 81001; 83540; 83550; 83735; 83880; 84484; 85025; 86301; 87428; 93005; 94640; 96374; A4930; J0744; J1100; J2405; J2704; J3010; J3480; J3490; J7120; Q9967; U0003; U0005; 97530-GO; 97535-GO; 99285-25; G0378; J7626

== ENCOUNTER 2022-02-24 17:56 | Emergency (ER) | payer OTHER, MEDICAID ==
[~2022-02-24] VITALS: Ht 152.4 cm; Wt 40.5 kg
--- NOTE | 2022-02-24 18:44 | PHYS DOC ---
Past Medical History Past Medical History: Asthma, Hypertension Past Surgical History: Other Additional Past Surgical Histo: CYST REMOVAL Smoking Status: Never Smoker Alcohol Use: None Drug Use: None General Adult EDM: Chief Complaint: NAUSEA/VOMITING/DIARRHEA HPI: HPI: Patient is a 71 year old female who presents emergency department today with complaints of nausea. Patient states that about 2 hours prior to arrival in the ED she developed some nausea. She denies any vomiting. She denies any abdominal pain. She denies any fever. She denies any burning or pain with urination. She denies any urinary frequency or hesitancy. She has not take anything for her nausea. Review of Systems: Review of Systems: Constitutional: Denies fever or chills. [] Eyes: Denies change in visual acuity. [] HENT: Denies nasal congestion or sore throat. [] Respiratory: Denies cough or shortness of breath. [] Cardiovascular: Denies chest pain or edema. [] GI: Denies abdominal pain, vomiting, bloody stools or diarrhea. [] : Denies dysuria. [] Musculoskeletal: Denies back pain or joint pain. [] Integument: Denies rash. [] Neurologic: Denies headache, focal weakness or sensory changes. [] Endocrine: Denies polyuria or polydipsia. [] Lymphatic: Denies swollen glands. [] Psychiatric: Denies depression or anxiety. [] Heart Score: C/O Chest Pain: No Family History: Family History: Noncontributory Current Medications: Current Medications Medications (Trade) Dose Ordered Sig/Ganesh Start Time Stop Time Status Last Admin Dose Admin Ondansetron HCl (Zofran) 4 mg 1X ONCE 02/24/22 18:45 02/24/22 18:46 Allergies: Allergies: Allergies Coded Allergies Type Severity Reaction Last Updated Verified No Known Drug Allergies 06/09/19 No Physical Exam: PE: Constitutional: Well developed, well nourished, no acute distress, non-toxic appearance. [] HENT: Normocephalic, atraumatic, bilateral external ears normal, oropharynx moist, no oral exudates, nose normal. [] Eyes: PERRLA, EOMI, conjunctiva normal, no discharge. [] Neck: Normal range of motion, no tenderness, supple, no stridor. [] Cardiovascular:Heart rate regular rhythm, no murmur [] Lungs & Thorax: Bilateral breath sounds clear to auscultation [] Abdomen: Bowel sounds normal, soft, no tenderness, no masses, no pulsatile masses. [] Skin: Warm, dry, no erythema, no rash. [] Back: No tenderness, no CVA tenderness. [] Extremities: No tenderness, no cyanosis, no clubbing, ROM intact, no edema. [] Neurologic: Alert and oriented X 3, normal motor function, normal sensory function, no focal deficits noted. [] Psychologic: Affect normal, judgement normal, mood normal. [] Current Patient Data: Labs: Laboratory Tests Test 02/24/22 19:35 02/24/22 20:30 Urine Collection Type Void Urine Color (Auto) Light yellow Urine Turbidity Clear Urine pH (Auto) 6.5 Urine Specific [place] 1.024 Urine Protein (Auto) Negative mg/dL Urine Glucose (Auto)(UA) Negative mg/dL Urine Ketones (Auto) Negative mg/dL Urine Blood (Auto) Negative Urine Nitrite Negative Urine Bilirubin (Auto) Negative Urine Urobilinogen (Auto) Normal mg/dL Urine Leukocyte Esterase (Auto) Negative Urine RBC 0 /HPF Urine WBC 1-4 /HPF Urine Squamous Epithelial Cells Mod /LPF Urine Bacteria Few /HPF Urine Mucus Slight /LPF White Blood Count 8.4 x10^3/uL Red Blood Count 4.09 x10^6/uL Hemoglobin 13.3 g/dL Hematocrit 37.9 % Mean Corpuscular Volume 93 fL Mean Corpuscular Hemoglobin 33 pg Mean Corpuscular Hemoglobin Concent 35 g/dL Red Cell Distribution Width 12.8 % Platelet Count 443 x10^3/uL Neutrophils (%) (Auto) 80 % Lymphocytes (%) (Auto) 15 % Monocytes (%) (Auto) 4 % Eosinophils (%) (Auto) 0 % Basophils (%) (Auto) 0 % Neutrophils # (Auto) 6.7 x10^3/uL Lymphocytes # (Auto) 1.3 x10^3/uL Monocytes # (Auto) 0.4 x10^3/uL Eosinophils # (Auto) 0.0 x10^3/uL Basophils # (Auto) 0.0 x10^3/uL Sodium Level 143 mmol/L Potassium Level 4.2 mmol/L Chloride Level 103 mmol/L Carbon Dioxide Level 29 mmol/L Anion Gap 11 Blood Urea Nitrogen 18 mg/dL Creatinine 0.9 mg/dL Estimated GFR (Cockcroft-Gault) 74.9 BUN/Creatinine Ratio 20 Glucose Level 108 mg/dL Calcium Level 10.2 mg/dL Total Bilirubin 0.3 mg/dL Aspartate Amino Transf (AST/SGOT) 18 U/L Alanine Aminotransferase (ALT/SGPT) 20 U/L Alkaline Phosphatase 63 U/L Total Protein 8.4 g/dL Albumin 3.8 g/dL Albumin/Globulin Ratio 0.8 Lipase 70 U/L Current Medications Medications (Trade) Dose Ordered Sig/Ganesh Route PRN Reason Start Time Stop Time Status Last Admin Dose Admin Ondansetron HCl (Zofran) 4 mg 1X ONCE IVP 02/24/22 18:45 02/24/22 18:46 DC 02/24/22 18:45 Vital Signs: Vital Signs Date Time Temp Pulse Resp B/P (MAP) Pulse Ox O2 Delivery O2 Flow Rate FiO2 02/24/22 18:20 97.7 59 18 139/92 (108) 97 Room Air 97.7 EKG: EKG: [] Radiology/Procedures: Radiology/Procedures: [] Impression: Nausea Course & Med Decision Making: Course & Med Decision Making Patient remained hemodynamically stable while in the emergency department. She was evaluated at the bedside with a physical exam. Basic labs obtained and are unremarkable. She was given Zofran for nausea. On reassessment patient's nausea has resolved. We will discharge her home with a short course of Zofran and have her follow-up with her PCP Renny Disclaimer: Renny Disclaimer: This electronic medical record was generated, in whole or in part, using a voice recognition dictation system. Departure Departure Impression: Primary Impression: Nausea Disposition: HOME / SELF CARE / HOMELESS Referrals: DANIEL VO MD (PCP) Patient Instructions: Nausea, Adult Scripts Ondansetron (ONDANSETRON ODT) 4 Mg Tab.rapdis 1 TAB PO PRN Q6-8HRS, #8 TAB Prov: ROBERT LOPEZ MD 02/24/22 ROBERT LOPEZ MD February 24, 2022 18:44
[2022-02-24] MEDS ORDERED: ONDANSETRON PF 4 MG/2 ML VIAL. IVP ONE (18:45)
[2022-02-24 19:50] LABS: BACTERIA,URINE FEW /HPF (0-FEW); RBC,URINE 0 /HPF (0-2)
[2022-02-24 20:59] LABS: BASO % 0 % (0-3); EOS % 0 % (0-3); HEMATOCRIT 37.9 % (36.0-47.0); HEMOGLOBIN 13.3 g/dL (12.0-15.5); LYMPH # 1.3 x10^3/uL (1.0-4.8); LYMPH % 15 % (24-48); MEAN CORPUSCULAR HEMOGLOBIN 33 pg (25-35); MEAN CORPUSCULAR HGB CONC 35 g/dL (31-37); MEAN CORPUSCULAR VOLUME 93 fL (79-100); MONO # 0.4 x10^3/uL (0.0-1.1); MONO % 4 % (0-9); NEUT # 6.7 x10^3/uL (1.8-7.7); NEUT % 80 % (31-73); PLATELET COUNT 443 x10^3/uL (140-400); RED BLOOD COUNT 4.09 x10^6/uL (3.50-5.40); RED CELL DISTRIBUTION WIDTH 12.8 % (11.5-14.5); WHITE BLOOD COUNT 8.4 x10^3/uL (4.0-11.0)
[2022-02-24 21:23] LABS: CALCIUM 10.2 mg/dL (8.5-10.1); CREATININE 0.9 mg/dL (0.6-1.0); GFR 74.9; POTASSIUM 4.2 mmol/L (3.5-5.1)
[2022-02-24 21:37] LABS: ALBUMIN 3.8 g/dL (3.4-5.0); ALBUMIN/GLOBULIN RATIO 0.8 (1.0-1.7); TOTAL BILIRUBIN 0.3 mg/dL (0.2-1.0); TOTAL PROTEIN 8.4 g/dL (6.4-8.2)
[2022-02-24 21:40] VITALS: BP 200/108
[2022-02-24] MEDS ORDERED: ONDA4TAB12 PO (21:43)
== END 2022-02-24 21:57 | disposition home or self-care (01) ==
LOC: ER 17:56
DX: R11.0 Nausea (principal); J45.909 Unspecified asthma, uncomplicated; I10 Essential (primary) hypertension
CPT/HCPCS: 36415; 80053; 81001; 83690; 85025; 96374; 99285; J2405